=== PATIENT | female | born 2000 | race Caucasian/White ===

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

== ENCOUNTER → 2019-06-18 16:51 | Outpatient (CLI) | payer OTHER, SELFPAY ==
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
== END ==
PROVIDERS: PCP Pediatrics; Referring Provider Chiropractor; Visit Provider Chiropractor
DX: S13.4XXA Sprain of ligaments of cervical spine, initial encounter (principal)
CPT/HCPCS: 72050

== ENCOUNTER 2020-01-07 12:34 | Observation (INO) | payer OTHER, SELFPAY ==
[2019-09-19 15:10] VITALS: BMI 24.8
[2020-01-06 15:57] LABS: Anion Gap 6 (5-15); BUN 13 mg/dL (7-18); BUN/Creat Ratio 18.3 RATIO (10-20); Calcium,Total 8.8 mg/dL (8.5-10.1); Chloride 102 mmol/L (98-107); Creatinine, Serum 0.71 mg/dL (0.55-1.02); EST Glomerular Filtration Rate 111 mL/min (>60); Est Glom Filt Rate - Afr Amer 135 mL/min (>60); Glucose 79 mg/dL (74-106); Magnesium 1.8 mg/dL (1.6-2.6); Potassium 3.6 mmol/L (3.5-5.1); Sodium Level 138 mmol/L (136-145)
[2020-01-07] VITALS (11 sets, daily range): BP systolic 110–122; BP diastolic 61–73; PULSE 72–105; RESP 14–20; TEMP 36.4–37.4; O2SAT 96–100; BMI 24.0
--- NOTE | 2020-01-07 00:20 | PCM.HP.BLA ---
History and Physical Date of Admission: 01/07/20 HISTORY OF PRESENT ILLNESS 19 year old woman presents with complaints of bilateral macromastia as well as associated painful symptomatology of neck pain, thoracic back pain, bilateral shoulder pain from shoulder grooving from the weight of her breasts on her bra straps, and inframammary intertrigo for which she uses powders for relief. She denies any trauma to her breasts. Denies any nipple discharge. She has been seeing a Chiropractor for her neck and thoracic back pain for the last several years without much relief in her painful symptomatology. We have received medical approval for the breast reduction surgery. It is scheduled for 01/07/20. PAST MEDICAL HISTORY Intertrigo Shoulder pain Chronic thoracic back pain Chronic neck pain Macromastia Asthma Frequent headaches PAST SURGICAL HISTORY None ALLERGIES latex cefadroxil [From Duricef] MEDICATIONS Loratadine [Claritin] Montelukast [Singulair] doxycycline hyclate norgestimate-ethinyl estradiol spironolactone Fluoxetine [Prozac] FAMILY HISTORY Mother - Hypertension Father - Hypertension, High cholesterol Grandmother - Arthritis, Bowel disease, Breast cancer, Diabetes, Heart disease, Hypertension, CVA (cerebral vascular accident), Thyroid disorder Grandfather - Heart disease, Hypertension Grandfather - Heart disease, Hypertension, COPD (chronic obstructive pulmonary disease) SOCIAL HISTORY Smoking Status: Never smoker alcohol intake: never substance use type: does not use REVIEW OF SYSTEMS General - Denies fever, fatigue, and weight loss. Eyes - Denies cataracts. Has glaucoma. ENT - Denies nasal congestion and sore throat. Endocrine - Denies excessive thirst and urination. Family history of breast cancer. Skin - Denies suspicious lesions and skin cancer. Has inframammary intertrigo for which she uses powders for relief. Musculoskeletal - Denies joint pain, weakness of muscles and joints, and arthritis. Has joint stiffness and neck pain and back pain. Her neck and back pain involve cervical and thoracic area. Has bilateral shoulder pain from shoulder grooving from the weight of her breasts on her bra straps. Neuro - Has headaches. Cardiovascular - Denies chest pain, fatigue, and shortness of breath with exertion. Psych - Denies anxiety. Has depression. Respiratory - Denies shortness of breath and chronic cough. Has asthma. Gastrointestinal - Denies nausea, vomiting, diarrhea. Has constipation. Hematologic - Denies abnormal bruising and bleeding. Genitourinary - Denies hematuria and urinary frequency. PHYSICAL EXAMINATION General - Alert and oriented. Patient's bra size is 36 DD. HEENT - PERRL. EOMI. Throat is clear. Neck - Supple. No bony tenderness. There is some pericervical soft tissue tenderness. Lungs- Clear to auscultation. Heart - Regular rate and rhythm. Breasts - Patient has bilateral macromastia. No breast masses palpable. No axillary adenopathy noted. Distance from midclavicular line on the left to the nipple is 30 cm and from the nipple to the inframammary fold is 10 cm. Distance from midclavicular line on the right to the nipple is 31 cm and from nipple to the inframammary fold is 10 cm. Nipple areolar complex diameter is 8 cm bilaterally. No active inframammary intertrigo noted at this time. Abdomen - Soft and non distended. Back - No bony tenderness noted. There is perivertebral soft tissue tenderness in the upper thoracic area. Extremities - FROM. No axillary adenopathy. Radial pulses are palpable. There is some bilateral shoulder tenderness with shoulder grooving from the weight of her breasts on her bra straps. Neuro - CN II-XII grossly intact. Psych - Normal and mood and affect. ASSESSMENT 1. Bilateral macromastia. 2. Neck pain. 3. Thoracic back pain. 4. Bilateral shoulder pain from shoulder grooving from the weight of the breasts on her bra straps. 5. Inframammary intertrigo. 6. Family history of breast cancer. PLAN Discussed with the patient the procedure of breast reduction mammoplasty. I feel this procedure would be beneficial in this patient as it would help relieve her painful symptomatology. Patient states she has not had a mammogram. She will not one preop due to her age. Postoperatively, she would get a breast reduction baseline mammogram at some point. I would remove approximately 300 g of breast tissue per side. We will send the tissue to pathology for analysis to rule out carcinoma. Discussed with patient the extent of scarring for this procedure. The biggest risk for wound healing problems is the T-zone area. Usually wound care and sometimes antibiotics are necessary for healing in this area. She would have drains in for a few days depending on the amount of tissue that is removed. She will be on antibiotics until the drains are removed. In general, the final breast size ranges from a high B to a low C cup. Patient voices understanding and would like to be in the C cup range. Surgery will be done under general anesthesia with a surgical observation overnight stay in the hospital. We have received medical approval for the breast reduction surgery. It is scheduled for 01/07/20. Patient was informed of the risks and complications of the procedure including alternatives to surgery. These were discussed with her personally. She voices understanding and wishes to proceed. Some of the risks and complications were included in a form from the [employer]. She had last minute questions that were answered personally and to her satisfaction. Her consents were signed. Discussed with the patient that sometimes it is difficult to breast feed after a breast reduction surgery. She states if she has children in the future and if she has trouble with breast feeding, then she will bottle feed her baby. Also because of her age, she may still be developing her breasts. After her breast reduction surgery, if she is still developing she may increase her breast size about half a cup size on average. She understands that possibility and wishes to proceed. We discussed the current risks associated with COVID-19. While it is understood that there is a community spread of COVID-19, the risk of leslee COVID-19 while at [facility] ([facility]) is very low; however, the risk cannot be completely mitigated because of the community spread of the disease. We discussed in detail the risk of exposure to and/or potential harm posed by the COVID-19 virus with having a surgery/procedure at this time versus the risk of delaying the surgery/procedure. It is not possible to know either the risk of delaying the surgery or procedure or chance of getting an infection with perfect accuracy, but a joint decision was made to proceed at this time with the scheduled surgery/procedure as indicated on the consent form. Patient was notified that we will need to comply with any screening or testing [facility] wishes to perform or that surgery may be delayed for any positive results. Discussed with the patient that I was tested for COVID-19 on 08/29/19 which was negative and on 09/12/19 which was negative and on 09/26/19 which was negative and on 10/10/19 which was negative and on 10/24/19 which was negative and on 11/14/19 which was negative and on 12/05/19 which was negative. My testing regimen at this time is to be COVID-19 tested every 2 weeks or so. Procedure Criteria Procedure Type: Elective COVID Risk Discussion: The surgeon/proceduralist and patient have discussed in detail the risk of exposure to and/or potential harm posed by the COVID-19 virus with having a surgery/procedure at this time versus the risk of delaying the surgery/procedure. It is not possible to know either the risk of delaying the surgery or procedure or chance of getting an infection with perfect accuracy, but a joint decision was made between the patient and the surgeon/proceduralist to proceed at this time with the scheduled surgery/procedure as indicated on the consent form.
[2020-01-07 05:49] LABS: Internal QC Validated? YES +Cl - CLEAR BKGD; Pregnancy, Urine Negative Negative
--- NOTE | 2020-01-07 06:00 | HP_ITS ---
Date of Surgery: January 07, 2020 HISTORY OF PRESENT ILLNESS 19 year old woman presents with complaints of bilateral macromastia as well as associated painful symptomatology of neck pain, thoracic back pain, bilateral shoulder pain from shoulder grooving from the weight of her breasts on her bra straps, and inframammary intertrigo for which she uses powders for relief. She denies any trauma to her breasts. Denies any nipple discharge. She has been seeing a Chiropractor for her neck and thoracic back pain for the last several years without much relief in her painful symptomatology. We have received medical approval for the breast reduction surgery. PAST MEDICAL HISTORY Intertrigo (Chronic) Shoulder pain (Chronic) Chronic thoracic back pain (Chronic) Chronic neck pain (Chronic) Macromastia (Chronic) Allergies (Acute) Asthma (Acute) Back problem (Acute) Frequent headaches (Acute) PAST SURGICAL HISTORY None ALLERGIES latex cefadroxil [From Duricef] MEDICATIONS Loratadine [Claritin] Montelukast [Singulair] doxycycline hyclate norgestimate-ethinyl estradiol spironolactone Fluoxetine [Prozac] FAMILY HISTORY Mother - Hypertension Father - Hypertension, High cholesterol Grandmother - Arthritis, Bowel disease, Breast cancer, Diabetes, Heart disease, Hypertension, CVA (cerebral vascular accident), Thyroid disorder Grandfather - Heart disease, Hypertension Grandfather - Heart disease, Hypertension, COPD (chronic obstructive pulmonary disease) SOCIAL HISTORY Smoking Status: Never smoker alcohol intake: never substance use type: does not use REVIEW OF SYSTEMS General - Denies fever, fatigue, and weight loss. Eyes - Denies cataracts. Has glaucoma. ENT - Denies nasal congestion and sore throat. Endocrine - Denies excessive thirst and urination. Family history of breast cancer. Skin - Denies suspicious lesions and skin cancer. Has inframammary intertrigo for which she uses powders for relief. Musculoskeletal - Denies joint pain, weakness of muscles and joints, and arthritis. Has joint stiffness and neck pain and back pain. Her neck and back pain involve cervical and thoracic area. Has bilateral shoulder pain from shoulder grooving from the weight of her breasts on her bra straps. Neuro - Has headaches. Cardiovascular - Denies chest pain, fatigue, and shortness of breath with exertion. Psych - Denies anxiety. Has depression. Respiratory - Denies shortness of breath and chronic cough. Has asthma. Gastrointestinal - Denies nausea, vomiting, diarrhea. Has constipation. Hematologic - Denies abnormal bruising and bleeding. Genitourinary - Denies hematuria and urinary frequency. PHYSICAL EXAMINATION General - Alert and oriented. Patient's bra size is 36 DD. HEENT - PERRL. EOMI. Throat is clear. Neck - Supple. No bony tenderness. There is some pericervical soft tissue tenderness. Lungs- Clear to auscultation. Heart - Regular rate and rhythm. Breasts - Patient has bilateral macromastia. No breast masses palpable. No axillary adenopathy noted. Distance from midclavicular line on the left to the nipple is 30 cm and from the nipple to the inframammary fold is 10 cm. Distance from midclavicular line on the right to the nipple is 31 cm and from nipple to the inframammary fold is 10 cm. Nipple areolar complex diameter is 8 cm bilaterally. No active inframammary intertrigo noted at this time. Abdomen - Soft and non distended. Back - No bony tenderness noted. There is perivertebral soft tissue tenderness in the upper thoracic area. Extremities - FROM. No axillary adenopathy. Radial pulses are palpable. There is some bilateral shoulder tenderness with shoulder grooving from the weight of her breasts on her bra straps. Neuro - CN II-XII grossly intact. Psych - Normal and mood and affect. ASSESSMENT 1. Bilateral macromastia. 2. Neck pain. 3. Thoracic back pain. 4. Bilateral shoulder pain from shoulder grooving from the weight of the breasts on her bra straps. 5. Inframammary intertrigo. 6. Family history of breast cancer. PLAN Discussed with the patient the procedure of breast reduction mammoplasty. I feel this procedure would be beneficial in this patient as it would help relieve her painful symptomatology. Patient states she has not had a mammogram. She will not one preop due to her age. Postoperatively, she would get a breast reduction baseline mammogram at some point. I would remove approximately 300 g of breast tissue per side. We will send the tissue to pathology for analysis to rule out carcinoma. Discussed with patient the extent of scarring for this procedure. The biggest risk for wound healing problems is the T-zone area. Usually wound care and sometimes antibiotics are necessary for healing in this area. She would have drains in for a few days depending on the amount of tissue that is removed. She will be on antibiotics until the drains are removed. In general, the final breast size ranges from a high B to a low C cup. Patient voices understanding and would like to be in the C cup range. Surgery will be done under general anesthesia with a surgical observation overnight stay in the hospital. We have received medical approval for the breast reduction surgery. It is scheduled for next week on 01/07/20. Patient was informed of the risks and complications of the procedure including alternatives to surgery. These were discussed with her personally. She voices understanding and wishes to proceed. Some of the risks and complications were included in a form from the [employer]. She had last minute questions that were answered personally and to her satisfaction. Her consents were signed. Discussed with the patient that sometimes it is difficult to breast feed after a breast reduction surgery. She states if she has children in the future and if she has trouble with breast feeding, then she will bottle feed her baby. Also because of her age, she may still be developing her breasts. After her breast reduction surgery, if she is still developing she may increase her breast size about half a cup size on average. She understands that possibility and wishes to proceed. We discussed the current risks associated with COVID-19. While it is understood that there is a community spread of COVID-19, the risk of leslee COVID-19 while at [facility] ([facility]) is very low; however, the risk cannot be completely mitigated because of the community spread of the disease. We discussed in detail the risk of exposure to and/or potential harm posed by the COVID-19 virus with having a surgery/procedure at this time versus the risk of delaying the surgery/procedure. It is not possible to know either the risk of delaying the surgery or procedure or chance of getting an infection with perfect accuracy, but a joint decision was made to proceed at this time with the scheduled surgery/procedure as indicated on the consent form. Patient was notified that we will need to comply with any screening or testing [facility] wishes to perform or that surgery may be delayed for any positive results. Discussed with the patient that I was tested for COVID-19 on 08/29/19 which was negative and on 09/12/19 which was negative and on 09/26/19 which was negative and on 10/10/19 which was negative and on 10/24/19 which was negative and on 11/14/19 which was negative and on 12/05/19 which was negative. My testing regimen at this time is to be COVID-19 tested every 2 weeks or so. Procedure Criteria Procedure Type: Elective COVID Risk Discussion: The surgeon/proceduralist and patient have discussed in detail the risk of exposure to and/or potential harm posed by the COVID-19 virus with having a surgery/procedure at this time versus the risk of delaying the surgery/procedure. It is not possible to know either the risk of delaying the surgery or procedure or chance of getting an infection with perfect accuracy, but a joint decision was made between the patient and the surgeon/proceduralist to proceed at this time with the scheduled surgery/procedure as indicated on the consent form. CC: Shantelle Mann
[2020-01-07] MEDS: Lactated Ringers 1,000 ML 40 ML IV (06:30)
[2020-01-07] MEDS: Gabapentin 600 MG Tablet PO (06:34)
[2020-01-07] MEDS: Scopolamine 1mg/72hr Patch 1 PATCH TRANSDERM. (06:35)
[2020-01-07] MEDS: Acetaminophen 500 MG Tablet 1000 MG PO ×2 (06:35→18:28)
[2020-01-07] MEDS: Scopolamine 1mg/72hr Patch 1 PATCH TD (07:00)
[2020-01-07 07:15] LABS: Bedside Glucose 105 mg/dL (70-110)
--- NOTE | 2020-01-07 07:30 | BR_PTH ---
PATIENT: THEA MERLOS LOC: MS3 U#:[id number] AGE/SX: 19/F ROOM: MS317 RE01/07/[address]: Dr. Cole Jackson MD : 2000 BED: 1 DIS: 01/08/2020 SPEC #: [id number] RECD: 01/07/20 07:30 STATUS: DM REDelta #: [id number] DEBBIE: 01/07/20 07:[address]: Cole Jackson DEPT: SURGICAL PATHOLOGY RECD BY: Lisa Lainez ENTERED: 01/08/20 09:02 SP TYPE: MAMOPLASTY OTHR DR: Dr. Shantelle Mann MD Tissues: A - Right breast, NOS B - Left breast, NOS Procedures: Surgery Specimen Level IV HEADER OPERATION: Breast reduction mammoplasty PRE-OP DIAGNOSIS: Bilateral macromastia; neck and thoracic back pain TISSUE SUBMITTED: A - Right breast tissue, B - Left breast tissue MICROSCOPIC DIAGNOSIS A. Right breast tissue, breast reduction mammoplasty: Fragments of benign breast tissue (553 gm) with focal fibrocystic changes and dense fibrosis. 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 B. Left breast tissue, breast reduction mammoplasty: Fragments of benign breast tissue (465 gm) with focal dense fibrosis. RENE:eli 01/09/20 MICROSCOPIC DESCRIPTION Slides are reviewed. GROSS DESCRIPTION A - Received in fixative is one container labeled with the patient's name and designated right breast tissue. The specimen consists of multiple pieces of fibroadipose tissue with a few of the pieces showing degroot-brown skin weighing in aggregate 553 gm and measuring in aggregate 22 x 20 x 5 cm. The skin surface is unremarkable. Sections reveal yellow adipose cut surfaces mixed with degroot-white fibrous areas. No mass lesion is identified. Top Waddy sections are submitted in six cassettes. Cassette 6 also contains the skin. B - Received in fixative is one container labeled with the patient's name and designated left breast tissue. The specimen consists of multiple pieces of fibroadipose tissue with a few of the pieces showing degroot-brown skin weighing in aggregate 465 gm and measuring in aggregate 19 x 16 x 5 cm. The skin surface is unremarkable. Sections reveal yellow adipose cut surfaces mixed with degroot-white fibrous areas. No mass lesion is identified. Top Waddy sections are submitted in six cassettes. Cassette 6 also contains the skin. / RENE:eli 01/08/20 TC:5 CPT: 38939 x2
--- NOTE | 2020-01-07 12:24 | OP.PCM_ITS ---
Report of Operation Date of Procedure: 01/07/20 Pre-Operative Diagnosis: 1. Bilateral macromastia. 2. Neck pain. 3. T horacic back pain. 4. Bilateral shoulder pain from shoulder grooving from the weight of the breasts on her bra straps. 5. Inframammary intertrigo. 6. Family history of breast cancer. Post-Operative Diagnosis: Same. Surgery/Procedure Performed:: Bilateral breast reduction mammaplasty. Description of Surgical Findings:: 19 year old woman presents with complaints of bilateral macromastia as well as associated painful symptomatology of neck pain, thoracic back pain, bilateral shoulder pain from shoulder grooving from the weight of her breasts on her bra straps, and inframammary intertrigo for which she uses powders for relief. She denies any trauma to her breasts. Denies any nipple discharge. She has been seeing a Chiropractor for her neck and thoracic back pain for the last several years without much relief in her painful symptomatology. We have received medical approval for the breast reduction surgery. Patient was informed of the risks and complications of the procedure including alternatives to surgery. These were discussed with the patient personally. Patient voices understanding and wishes to proceed. Some of the risks and complications were included in a form from the [employer]. IV Fluids - 2200 ml. Urine Output - 500 ml. Tissue removed from the left breast - 446 grams. Tissue removed from the right breast - 532 grams. I used John absorbable hemostat, (I used 2 vials, one in each breast). Reference Number - [id number]. Lot Number - [id number]. Expiration - July 24, 2024 (Left breast). Reference Number - [id number]. Lot Number - [id number]. Expiration - August 24, 2024 (Right breast). chief executive officer: Adrian Reyna. Type of Anesthesia:: General Specimen's removed: 1. Left breast tissue to Pathology. 2. Right breast ti ssue to Pathology.. Drains: Godwin x2 (one in each breast). Estimated Blood Loss (mL): 250 ml. Fluids Replaced: 2700 ml (IV Fluids 2200 ml, Urine Output 500 ml). Description of Procedure: In the preop area, the patient was placed in the sitting position and preoperative markings were made. The sternum midline was marked down to the umbilicus. The inframammary folds were marked bilaterally. The midclavicular line was then marked down to the nipple, then from the nipple to the inframammary fold. The inframammary fold was then superimposed on the midclavicular line and I made a point 1 cm below that to be the new position of the nipple-areolar complex. 7 cm lines were then drawn divergent from that point to encompass the nipple-areolar complex. The distance between the divergent lines was 10 cm. The patient was then placed in the supine position and taken to the operating room and placed under general anesthesia and her breasts were prepped and draped in usual fashion. Ioban draping was also used. SCDs were placed for DVT prophylaxis. Perioperative antibiotics were given intravenously. A Adhikari catheter was also placed. For the surgery I wore an N95 mask and wore proper eyewear protection. I then sherwin straight lines down from the lines drawn divergent around the nipple-areolar complex down to the inframammary fold. The width of the pedicle is 9 cm. I then used a 42 mm circular template for a new size of the nipple-areolar complex. The central markings were infiltrated with Xylocaine and epinephrine. The central skin was then deepithelialized. I started on the left side first and then went to the right side. I then mobilized medial and lateral breast flaps at the level of Casa's fascia down to about 1-2 cm from the chest wall. This was met in the midline of the breast with dissection at the level of Casa's fascia down to about 1-2 cm from the chest wall. Once the central breast mound pedicle was from the skin envelope, the reduction was then begun. Most of the tissue was removed from the superior aspect of the breast and the lateral aspect of the breast. I then sutured the leading edge of the medial and lateral breast flaps to the midline of the inframammary fold with 2-0 Vicryl suture. The vertical incision was approximated using surgical clips. The excess tissue from the medial and lateral breast flaps were excised and the horizontal incision was approximated using surgical clips. The patient was then placed in a sitting position. Using a vertical limb length of 4.5 cm, I sherwin the new position of the new nipple-areolar complexes on both breasts. They were in good position on the central aspect of the breast mound. Good symmetry was noted between the left breast and the right breast. Good shape and contour and projection was noted and appeared clinically to be a C cup. The patient was then placed back in the supine position and the surgical clips were removed. The breast wounds were then irrigated with Irrisept 0.05% Chlorhexidine solution which was followed by saline irrigation. Hemostasis was obtained using electrocautery. The tissue removed from the left breast was 446 grams. The tissue removed from the right breast was 532 grams. The tissue that was removed from the breasts was sent to Pathology for analysis to rule out carcinoma. After hemostasis was obtained using electrocautery, I then sprayed John absorbable hemostat into both breast wounds. I used one vial for each side. I then placed a size 15 Godwin drain into each breast wound to be brought through the lateral aspect of the horizontal incision. I then closed the breast wounds by first approximating the leading edge of the medial and lateral breast flaps to the midline of the inframammary fold with 2-0 Vicryl suture. The deep dermis and subcutaneous tissue of the vertical incision and the horizontal incisions were approximated using 3-0 Monocryl interrupted sutures. The horizontal incision was then approximated using 4-0 V-Loc unidirectional barbed running subcuticular suture. I also placed a few 4-0 Prolene vertical mattress interrupted sutures at the level of the Tzone. The vertical incision was then closed on the skin with 4-0 Prolene interrupted sutures. With a vertical limb length of 4.5 cm, I sherwin a circular incision where the nipple-areolar complex would be brought through this keyhole incision. Incisions were made and the nipple areolar complex was brought through the keyhole incision. The nipple-areolar complex was secured to the breast skin using 3-0 Monocryl interrupted sutures for deep dermis and subcutaneous tissue. The skin was approximated using 4-0 Prolene simple interrupted sutures. This was then covered with Histoacryl skin tissue adhesive. I sutured the drains to the skin using 3-0 nylon suture. At the end of the procedure, the breasts were soft with no evidence of vascular compromise. No evidence of hematomas were noted. The nipples were viable. I then dressed the breasts with a Kerlix gauze and a compression david wrap. Then patient tolerated the procedure well and will be sent to the recovery room in satisfactory condition. She will be admitted for surgical observation overnight stay. She will go home tomorrow once she is tolerating oral pain medication. I will remove the drains in a few days. She will keep her head elevated during the initial postoperative period. She will be maintained on a lifting restriction and keep her head elevated during the initial postoperative period. Post-discharge, she may get a compression sports bra as well. She will have the Adhikari removed in the morning. She will be sent home on antibiotics and pain med icine. Sutures will be removed in 1-2 weeks. Grafts/Implants Used: John. - Complications None. - Admit VTE Documentation VTE Present on Admission: No VTE Mechan Device Prophylaxis: SCD's VTE Pharm Prophylaxis ordered?: Yes Surgery Charges CPT - 58138 ICD-10 - N62, M54.2, M54.6, M25.519, L30.4, Z80.3 [id number] N62, M54.2, M54.6, M25.519, L30.4, Z80.3
[2020-01-07] MEDS: Lactated Ringers 1,000 ML 60 ML IV ×2 (12:30→14:39)
[2020-01-07] MEDS: Ondansetron ODT 4 MG Tablet PO (14:34)
[2020-01-07] MEDS: Ondansetron 4 MG/2 ML Vial IV (16:21)
[2020-01-07] MEDS: 0.9% Saline Lock 10 ML Syringe IV (16:21)
[2020-01-07] MEDS: proMETHazine 25 MG/ML Syringe 12.5 MG IV (16:58)
[2020-01-07] MEDS: Docusate Sodium 100 MG Capsule PO (22:53)
[2020-01-07] MEDS: FLUoxetine 20 MG Capsule PO (22:53)
[2020-01-08] MEDS: Acetaminophen 500 MG Tablet 1000 MG PO ×3 (00:12→12:50)
[2020-01-08 00:20] VITALS: BP 104/67; PULSE 83; RESP 16; TEMP 36.4; O2SAT 100
[2020-01-08 04:02] VITALS: BP 103/68; PULSE 77; RESP 16; TEMP 36.6; O2SAT 97
[2020-01-08 04:43] VITALS: BP 107/68; PULSE 63; RESP 16; TEMP 36.7; O2SAT 100
[2020-01-08 05:34] LABS: Hematocrit 32.2 % (37-47); Hemoglobin 10.4 g/dL (12.0-15.0); Mean Corp Hgb Conc 32.3 g/dL (32-36); Mean Corpuscular Hgb 29.8 pg (27.0-32.0); Mean Corpuscular Volume 92.3 fL (81-99); Mean Platelet Vol. 11.9 fl (6.2-12.0); Platelet Count 201 K/mm3 (150-450); RBC Distribution Width CV 12.5 % (11.6-14.6); Red Blood Count 3.49 M/mm3 (4.2-5.4); White Blood Count 7.2 K/mm3 (4.4-11.0)
[2020-01-08 06:02] LABS: Anion Gap 5 (5-15); BUN 5 mg/dL (7-18); BUN/Creat Ratio 7.8 RATIO (10-20); Calcium,Total 8.1 mg/dL (8.5-10.1); Chloride 105 mmol/L (98-107); Creatinine, Serum 0.64 mg/dL (0.55-1.02); EST Glomerular Filtration Rate 125 mL/min (>60); Est Glom Filt Rate - Afr Amer 151 mL/min (>60); Estimated Creatinine Clearance 136.35 ml/min; Glucose 111 mg/dL (74-106); Potassium 3.9 mmol/L (3.5-5.1); Prealbumin 24.2 mg/dL (20.0-40.0); Sodium Level 140 mmol/L (136-145)
[2020-01-08 08:36] VITALS: BP 106/73; PULSE 64; RESP 16; TEMP 36.9; O2SAT 100
[2020-01-08] MEDS: Ensure Surgery 237 ML LIQUID PO (09:54)
[2020-01-08] MEDS: oxyCODONE 5 MG Tablet PO ×2 (09:54→14:47)
[2020-01-08] MEDS: Montelukast 10 MG Tablet 5 MG PO (09:55)
[2020-01-08] MEDS: Ondansetron ODT 4 MG Tablet PO (09:55)
[2020-01-08] MEDS: Gabapentin 100 MG Capsule 200 MG PO ×2 (09:55→12:51)
[2020-01-08] MEDS: Loratadine 10 MG Tablet PO (09:55)
[2020-01-08] MEDS: Enoxaparin 40 MG/0.4 ML Syringe SC (09:55)
[2020-01-08] MEDS: Docusate Sodium 100 MG Capsule PO (09:56)
[2020-01-08 10:40] VITALS: O2SAT 100
--- NOTE | 2020-01-08 13:04 | PCM.PN.SRG ---
Subjective: Postop #1 Patient is resting comfortably. Had some emesis last night. - Physical Exam Vitals/I&O's: Vital Signs Temp Pulse Resp BP Pulse Ox 98.4 F 64 16 106/73 100 01/08/20 08:36 01/08/20 08:36 01/08/20 08:36 01/08/20 08:36 01/08/20 10:40 Oxygen Flow Rate (L/min) 6 Oxygen Delivery Method Room Air Weight: 153 lb 14.122 oz Body Mass Index (BMI) 24.0 Intake and Output for Last 24 Hours 01/06/20 01/07/20 01/08/20 23:59 23:59 23:59 Intake Total 3118 / 3118 3054 / 3054 Output Total 2045 / 2045 1765 / 1765 Balance 1073 / 1073 1289 / 1289 Drainage 170 ml yesterday, 15 ml today. General: Alert, Oriented x3 HEENT: PERRLA, EOMI Oral: Moist Mucosa Neck: Supple Abdomen: Soft, Non-Distended Skin: Incision - bilateral breast incisions are dry and intact. Breasts are soft and symmetrical. No clinical evidence of hematoma. Nipples are viable. Neurological: Cranial nerves II-XII grossly intact Psych/Mental Status: Normal Affect, Appropriate Microbiology Past 72 Hours 01/06/20 14:15 Interface Orders SARS-CoV-2 Antigen (Rapid) - Final Laboratory Results 01/08/20 05:00: WBC 7.2, RBC 3.49 L, Hgb 10.4 L, Hct 32.2 L, MCV 92.3, MCH 29.8, MCHC 32.3, RDW Std Deviation 42.0, RDW Coeff of Karan 12.5, Plt Count 201, MPV 11.9 01/08/20 05:00: Sodium 140, Potassium 3.9, Chloride 105, Carbon Dioxide 30.0, Anion Gap 5, BUN 5 L, Creatinine 0.64, Estim Creat Clear Calc 136.35, Est GFR (MDRD) Af Amer 151, Est GFR (MDRD) Non-Af 125, BUN/Creatinine Ratio 7.8 L, Glucose 111 H, Calcium 8.1 L, Prealbumin 24.2 Current Medications Acetaminophen (Acetaminophen 500 Mg Tablet) 1,000 mg PO Q6 BRENNAN Last Admin: 01/08/20 12:50 Dose: 1,000 mg Documented by: Docusate Sodium (Docusate Sodium 100 Mg Capsule) 100 mg PO BID [facility] Last Admin: 01/08/20 09:56 Dose: 100 mg Documented by: Enoxaparin Sodium (Enoxaparin 40 Mg/0.4 Ml Syringe) 40 mg SC DAILY [facility] Last Admin: 01/08/20 09:55 Dose: 40 mg Documented by: Enteral Nutritional Formula (Ensure Surgery 237 Ml Liquid) 237 ml PO TIDCM [facility] Last Admin: 01/08/20 12:50 Dose: Not Given Documented by: Fluoxetine HCl (Fluoxetine 20 Mg Capsule) 20 mg PO QHS [facility] Last Admin: 01/07/20 22:53 Dose: 20 mg Documented by: Gabapentin (Gabapentin 100 Mg Capsule) 200 mg PO TIDCM [facility] Last Admin: 01/08/20 12:51 Dose: 200 mg Documented by: Hydromorphone HCl (Hydromorphone 1 Mg/Ml Syringe) 0.5 - 1 mg IV Q3H PRN PRN PRN Reason: Pain Score 6-10 Clindamycin Phosphate 600 mg/ (Dextrose) 54 mls @ 100 mls/hr IV Q8H [facility] Last Infusion: 01/08/20 07:13 Dose: Infused Documented by: Insulin Human Lispro (Insulin Lispro 100 Unit/Ml Insuln.Pen) 1 - 6 unit SC Q4H PRN PRN; Protocol PRN Reason: BG>/= 180, SEE PROTOCOL Loratadine (Loratadine 10 Mg Tablet) 10 mg PO DAILY [facility] Last Admin: 01/08/20 09:55 Dose: 10 mg Documented by: Magnesium Chloride (Magnesium Chloride 64 Mg Delay Rel.Tablet) 128 mg PO DAILY PRN PRN PRN Reason: Constipation Montelukast Sodium (Montelukast 10 Mg Tablet) 5 mg PO DAILY [facility] Last Admin: 01/08/20 09:55 Dose: 5 mg Documented by: Non-Formulary Medication (Doxycycline Hyclate) 20 mg PO BID [facility] Norgestimate (Norgestimate-Ethinyl Estradiol 1 Dose.Pack) 1 tablet PO DAILY [facility] Ondansetron HCl (Ondansetron Odt 4 Mg Tablet) 4 mg PO Q6H PRN PRN PRN Reason: NAUSEA Last Admin: 01/08/20 09:55 Dose: 4 mg Documented by: Ondansetron HCl (Ondansetron 4 Mg/2 Ml Vial) 4 mg IV Q6H PRN PRN PRN Reason: NAUSEA Last Admin: 01/07/20 16:21 Dose: 4 mg Documented by: Oxycodone HCl (Oxycodone 5 Mg Tablet) 5 - 10 mg PO Q4H PRN PRN PRN Reason: Pain Score 4-10 Last Admin: 01/08/20 09:54 Dose: 5 mg Documented by: Promethazine HCl (Promethazine 25 Mg/Ml Syringe) 12.5 mg IV Q4H PRN PRN PRN Reason: NAUSEA/VOMITING Last Admin: 01/07/20 16:58 Dose: 12.5 mg Documented by: Sodium Chloride (0.9% Saline Lock 10 Ml Syringe) 10 - 40 ml IV UD PRN PRN Reason: SALINE FLUSH Last Admin: 01/07/20 16:21 Dose: 10 ml Documented by: Spironolactone (Spironolactone 50 Mg Tablet) 100 mg PO 1800 [facility] Last Admin: 01/07/20 17:07 Dose: Not Given Documented by: Medical Necessity - Tobacco Use Smoking Status: Never smoker Assessment/Plan 1. Bilateral macromastia. 2. Neck pain. 3. Thoracic back pain. 4. Bilateral shoulder pain from shoulder grooving from the weight of the breasts on her bra straps. 5. Inframammary intertrigo. 6. Family history of breast cancer. 7. s/p bilateral breast reduction mammaplasty. Patient had some emesis last night. Resting comfortably today. She is tolerating po analgesia. Breasts are soft and symmetrical. Incisions are dry and intact. No clinical evidence of hematoma. Nipples are viable. Prealbumin was 24.2. Encourage nutritional supplementation with protein to help the healing process. Discharge home today. Wrote scripts for Clindamycin for 5 days. Wrote script for Percocet for pain (40 tabs). Wrote scripts for Phenergan for nausea (30 tabs) and a refill and for Colace for constipation (60 tabs). Keep head elevated. Maintain david wrap compression. Maintain lifting restriction. Followup Monday01/10/20 to remove the breast drains.
--- NOTE | 2020-01-08 13:27 | DCINST_ITS ---
You will use the following diet at home:: No restrictions, Other - encourage nutritional supplementation with protein to help the healing process. Discharge Activity: May not drive while taking narcotic pain medications., May Not Shower - until the drains are removed., - - keep head elevated. no heavy lifting. continue david wrap compression. May shower in (days): 3 - after the drains are removed in the office. May resume sexual activity in: 10-14 days Weight Bearing Status: Weight bearing as tolerated Lifting Restrictions: 20 lbs. Keep extremity elevated above heart level: - - elevate head. Call your doctor if your incision/area has: Continuous Slow Oozing, Sudden Increased Bleeding, Increased Pain/ Swelling, Increased Redness, Foul Smelling Discharge, Swelling at the incision site Call your doctor if you observe: Fever of 101 or Higher, Coldness, Increased Pain, Shortness of breath, Chest pain, Calf discomfort, Uncontrolled pain Suture Line Care: - - dry dressings daily. Change Dressing in (Days):: 1 - dry dressings daily. Cleanse incision/area with: - - may get incisions wet in the shower after the drains are removed. Drain: Suction - anabel drain x2 to bulb suction. empty and record output daily. Allergies/Adverse Reactions: Allergies latex Allergy (Intermediate, Verified 01/07/20 06:04) SKIN RASH AND ITCHING cefadroxil [From Duricef] Allergy (Verified 01/07/20 06:04) Hives Medications to take at Discharge Loratadine [Claritin] 10 mg PO DAILY 12/19/14 Montelukast [Singulair] 5 mg PO DAILY 12/19/14 doxycycline hyclate 20 mg capsule 20 mg PO BID 09/09/19 norgestimate 0.25 mg-ethinyl estradiol 35 mcg tablet 1 tab PO DAILY 09/09/19 spironolactone 50 mg tablet 100 mg PO 1800 09/09/19 Fluoxetine [Prozac] 20 mg PO QHS 12/27/19 Clindamycin HCl [Cleocin HCl] 300 mg PO TID #15 cap 01/08/20 Docusate Sodium [Colace] 100 mg PO BID #60 cap 01/08/20 Oxycodone HCl/Acetaminophen [Percocet 5/325] 1 tablet PO Q4H PRN PRN 7 Days #40 tablet 01/08/20 proMETHazine tablet [Phenergan tablet] 25 mg PO 4X/DAY PRN PRN #30 tab 01/08/20 The following prescriptions were given: Clindamycin HCl [Cleocin HCl] 300 mg PO TID #15 cap Transmission Status: Pending to [id number] Docusate Sodium [Colace] 100 mg PO BID #60 cap Transmission Status: Pending to [facility][id number] Oxycodone HCl/Acetaminophen [Percocet 5/325] 1 tablet PO Q4H PRN PRN 7 Days #40 tablet PRN Reason: Pain Score 6-10 Transmission Status: Received by [facility][id number] proMETHazine tablet [Phenergan tablet] 25 mg PO 4X/DAY PRN PRN #30 tab PRN Reason: Nausea Transmission Status: Pending to [id number] Primary Care Physician: Shantelle Mann MD [Primary Care Provider] - Test Results: Test results from this visit will be discussed in further detail at your follow- up appointment, if applicable. Please Follow Up With: Cole Jackson MD When: monday01/10/20. call [phone] for appt. Proposed Discharge Date: 01/08/20
[2020-01-08 15:08] VITALS: BP 100/63; PULSE 74; RESP 18; TEMP 36.4; O2SAT 100
== END 2020-01-08 15:50 | disposition home or self-care (01) ==
LOC: SDC 13:16 → MS3 01-08 07:15
PROVIDERS: Anesthesiology; Admitting Provider Surgery; PCP Pediatrics; Referring Provider Surgery; Visit Provider Surgery
PROC: 0H0U0ZZ Alteration of Left Breast, Open Approach (ICD-10-PCS; CPT 19318; principal; 2020-01-07 07:15)
DX: N62 Hypertrophy of breast (principal); Z20.828 Contact with and (suspected) exposure to other viral communicable diseases; M54.6 Pain in thoracic spine; M54.2 Cervicalgia; M25.511 Pain in right shoulder; M25.512 Pain in left shoulder; L30.4 Erythema intertrigo; Z80.3 Family history of malignant neoplasm of breast; J45.909 Unspecified asthma, uncomplicated; Z79.899 Other long term (current) drug therapy; F41.9 Anxiety disorder, unspecified
CPT/HCPCS: 00402; 19318; 36415; 80048; 81025; 82962; 83735; 84134; 85027; 87426; 88305; 96365; 96366; 96372; 96375; 99218; 99251; J7120; A4216; G0378; G0379; G0463; J2405; Q9968

== ENCOUNTER → 2020-01-27 20:28 | Outpatient (CLI) | payer OTHER, SELFPAY | PROVIDERS: PCP Pediatrics; Referring Provider Surgery; Visit Provider Surgery | DX: T81.89XA Other complications of procedures, not elsewhere classified, initial encounter (principal); N62 Hypertrophy of breast; Z98.890 Other specified postprocedural states | CPT/HCPCS: 87070; 87075; 87077; 87186; 87205 ==

== ENCOUNTER → 2020-08-26 11:39 | Outpatient (CLI) | payer OTHER, SELFPAY ==
--- NOTE | 2020-08-26 11:50 | RAD_ITS ---
STUDY: X-RAY - CERVICAL SPINE REASON FOR EXAM: Female, 19 years old. Radiculopathy, cervical region TECHNIQUE: 4 view(s) of the cervical spine were obtained. COMPARISON: None FINDINGS: Normal anterior atlantoaxial articulation. Normal odontoid process. Normal cervical lordosis. Normal vertebral bodies and endplates. Normal disc space heights. Normal visualized intervertebral neuroforamina. The soft tissue structures are unremarkable. RAD/Cerv Spine 2 or 3 Views IMPRESSION: Normal x-ray examination of the visualized cervical spine. Electronically Signed: Carson Jovel MD at 16:55 EDT , Service support ,
== END ==
PROVIDERS: PCP Internal Medicine; Referring Provider Chiropractor; Visit Provider Chiropractor
DX: M54.12 Radiculopathy, cervical region (principal)
CPT/HCPCS: 72040

== ENCOUNTER 2021-02-23 04:37 | Emergency (ER) | payer OTHER, SELFPAY ==
[2021-02-23 04:39] VITALS: BP 126/85; PULSE 82; RESP 16; TEMP 36.6; O2SAT 100; BMI 25.3
--- NOTE | 2021-02-23 05:04 | CT_ITS ---
EXAM: CT ABDOMEN AND PELVIS WITH INTRAVENOUS CONTRAST : 2000 CLINICAL INDICATION: pain TECHNIQUE: Helically acquired images were obtained of the abdomen and pelvis with intravenous contrast. This CT exam was performed using one or more of the following dose reduction techniques: automated exposure control, adjustment of the mA and/or kV according to patient size, and/or use of iterative reconstruction technique. This report was created using [employer] report generation technology. CONTRAST: IV 100mL Isovue-370 COMPARISON: None. FINDINGS: LOWER THORAX: Unremarkable. Lung bases are clear. No cardiomegaly. No significant pericardial effusion. ABDOMEN: LIVER: Unremarkable. Homogeneous. No focal mass. GALLBLADDER AND BILE DUCTS: Unremarkable. No calcified gallstones. No gallbladder distention or wall edema. No intra- or extrahepatic biliary ductal dilation. PANCREAS: Unremarkable. No focal cystic or solid mass. SPLEEN: Unremarkable. Normal size without focal cystic or solid mass. ADRENALS: Unremarkable. No nodules. KIDNEYS AND URETERS: Unremarkable. Normal renal size and position. No hydronephrosis. STOMACH AND BOWEL: Unremarkable. No stomach or bowel distention. No focal inflammatory change. PELVIS: APPENDIX: No evidence of acute appendicitis. BLADDER: Unremarkable. REPRODUCTIVE: There is a 3.8 cm left ovarian cyst. ABDOMEN and PELVIS: INTRAPERITONEAL SPACE: Unremarkable. No ascites or other fluid collection. No free air. BONES/JOINTS: Unremarkable. No suspicious lytic or blastic abnormality. SOFT TISSUES: Unremarkable. No discrete abdominal or pelvic wall hernia. VASCULATURE: Unremarkable. Abdominal aorta is non-dilated. LYMPH NODES: Unremarkable. No enlarged lymph nodes. CT/Abdomen/Pelvis W IV Cont ONLY IMPRESSION: There is a 3.8 cm left ovarian cyst. Individualized dose optimization techniques were used for this CT. at 0555 Reported and signed by: Amol Argueta MD Electronically Signed: Amol Argueta MD at 5:54 EST Tel , Service support ,
--- NOTE | 2021-02-23 05:05 | ED.VIS.GI ---
HPI HPI - GI History of Present Illness Chief Complaint: Complaint Narrative Narrative: Patient with past medical history of anxiety, takes spironolactone and doxycycline for her acne, presents with her mother because of right-sided back pain and left-sided abdominal pain that she has had for the last 4 days. She states that she went to urgent care and they did a UTI test which was negative. They did some other sort of test and told her that she had a yeast infection so gave her Monistat. She states that over the last 4 days, the pain has been getting worse. She had pain in her back that radiated downward that she describes as sharp and stabbing. She also had pain on the left side in the front. She vomited 3 times today without any blood in her emesis. She has had a little bit of diarrhea without any blood in her stool. No exacerbating or alleviating factors to her pain. When she started vomiting, her mother became concerned and brought her to the emergency department for evaluation. [facility] Medical History Allergies Asthma Back problem Chronic neck pain Chronic thoracic back pain Contact dermatitis Frequent headaches Hypertrophic scar of skin Intertrigo Macromastia Shoulder pain Home Medications loratadine 10 mg PO DAILY 12/19/14 [History Last Taken Unknown] montelukast 5 mg PO DAILY 12/19/14 [History Last Taken Unknown] doxycycline hyclate 20 mg capsule 20 mg PO BID 09/09/19 [History Last Taken Unknown] norgestimate 0.25 mg-ethinyl estradiol 35 mcg tablet 1 tab PO DAILY 09/09/19 [History Last Taken Unknown] spironolactone 50 mg tablet 100 mg PO 1800 09/09/19 [History Last Taken Unknown] fluoxetine 20 mg PO QHS 12/27/19 [History Last Taken Unknown] ondansetron 4 mg PO Q6H PRN #14 tab 02/23/21 [Rx Last Taken Unknown] Allergy/AdvReac Type Severity Reaction Status Date / Time latex Allergy Intermediate SKIN RASH Verified 02/23/21 04:41 AND ITCHING cefadroxil [From [facility]] Allergy Hives Verified 02/23/21 04:41 chloroprep Allergy Intermediate rash and Uncoded 01/15/21 15:09 itching Family History Mother Hypertension Father Hypertension High cholesterol Grandmother Arthritis Bowel disease Breast cancer Diabetes Heart disease Hypertension CVA (cerebral vascular accident) Thyroid disorder Grandfather Heart disease Hypertension Grandfather Heart disease Hypertension COPD (chronic obstructive pulmonary disease) Surgical History History of bilateral breast reduction surgery History of excision of lesion Social History Smoking Status: Never smoker alcohol intake: never substance use type: does not use additional social history: DOES TAKE ASPIRIN NEEDED DOES TAKE IBUPROFEN NEEDED ROS ROS ED ROS Narrative Constitutional: No fever, no chills. HEENT: No sore throat. No neck pain. No loss of vision. No rhinorrhea. Cardiovascular: No chest pain. No palpitations. No pedal edema. Respiratory: No cough, no shortness of breath. Abdominal: Positive abdominal pain. Positive nausea. 3 episodes of vomiting. Positive diarrhea Genitourinary: No dysuria. No hematuria. Musculoskeletal: No myalgias. No arthralgias. Neurologic: No headaches. No dizziness. No lightheadedness. Skin: No rash. No change in color. Psychiatric: No depression. No anxiety. EXAM Physical Exam Narrative Exam Narrative: Afebrile. Vital signs noted. HEENT: Normocephalic. Atraumatic. PERRL, EOMI. Neck soft and supple. No point tenderness or step off. Cardiovascular: Regular rate and rhythm. No murmurs, rubs, or gallops appreciated. Respiratory: No tachypnea. Lungs clear to auscultation bilaterally. Gastrointestinal: Abdomen soft, nontender, with normoactive bowel sounds. No rebound or guarding. Neurological: Awake. Alert. Nonfocal, nonlateralizing. Skin: No rash. Normal color. No pallor. Musculoskeletal: No pedal edema. Full range of motion extremities. Psychological: Flat affect Const Vital Signs: 02/23/21 04:39 Temperature 97.8 F Temperature Source Temporal Pulse Rate 82 Respiratory Rate 16 Blood Pressure 126/85 H Blood Pressure Mean 98 Pulse Ox 100 Oxygen Delivery Method Room Air MDM MDM MDM Narrative Medical decision making narrative: Comprehensive work-up was pursued. She was bolused normal saline. I will obtain a serum along with CBC, CMP, and lipase for her 3 episodes of vomiting. Regarding her right-sided back pain and left-sided abdominal pain and diarrhea I will obtain CT imaging with IV contrast and urinalysis. Her work-up is grossly unremarkable. She has normal white count of 8.0, hemoglobin stable at 13.5. CMP is grossly unremarkable with a normal BUN and creatinine. AST and ALT are normal. Lipase normal at 78. Serum is negative. Urinalysis shows no evidence of infection. CT of the abdomen pelvis shows a 3.8 cm left ovarian cyst, but otherwise unremarkable. No appendicitis. At this point in time, upon repeat examination after morphine and Zofran, along with IV fluids, she feels improved. I feel she can be discharged safely home with follow-up. I wrote her prescription for a few Zofran ODT's. She will start a clear liquid diet and advance as tolerated. Return instructions to the emergency department were reviewed. She will follow up with her LEATHER SHAVER regarding her ovarian cyst. Patient and mother are agreeable to the plan. Disposition is discharged home in stable condition. Lab Data Attestation: I reviewed the patient's lab results. Labs: Laboratory Results - last 24 hr 02/23/21 02/23/21 02/23/21 04:48 04:48 04:48 WBC 8.0 RBC 4.65 Hgb 13.5 Hct 41.1 MCV 88.4 MCH 29.0 MCHC 32.8 RDW Std Deviation 40.1 RDW Coeff of Karan 12.4 Plt Count 205 MPV 12.3 H Immature Gran % (Auto) 0.200 Neut % (Auto) 81.1 H Lymph % (Auto) 9.1 L [place] % (Auto) 8.2 Eos % (Auto) 1.2 Baso % (Auto) 0.2 Absolute Neuts (auto) 6.5 Absolute Lymphs (auto) 0.73 L Nucleated RBC % 0 Sodium 136 Potassium 3.7 Chloride 105 Carbon Dioxide 25.0 Anion Gap 6 BUN 12 Creatinine 0.62 Estim Creat Clear Calc 144.79 Est GFR (MDRD) Af Amer 157 Est GFR (MDRD) Non-Af 129 BUN/Creatinine Ratio 19.4 Glucose 111 H Calcium 8.6 Total Bilirubin 0.40 AST 21 ALT 35 Alkaline Phosphatase 89 Total Protein 7.8 Albumin 3.8 Globulin 4.0 Albumin/Globulin Ratio 1.0 Lipase 78 Serum , Qual NEGATIVE Urine Color Urine Clarity Urine pH Ur Specific [place] Urine Protein Urine Glucose (UA) Urine Ketones Urine Occult Blood Urine Nitrite Urine Bilirubin Urine Urobilinogen Ur Leukocyte Esterase Urine RBC Urine WBC Ur Squamous Epith Cells Urine Bacteria Urine Mucus 02/23/21 05:22 WBC RBC Hgb Hct MCV MCH MCHC RDW Std Deviation RDW Coeff of Karan Plt Count MPV Immature Gran % (Auto) Neut % (Auto) Lymph % (Auto) [place] % (Auto) Eos % (Auto) Baso % (Auto) Absolute Neuts (auto) Absolute Lymphs (auto) Nucleated RBC % Sodium Potassium Chloride Carbon Dioxide Anion Gap BUN Creatinine Estim Creat Clear Calc Est GFR (MDRD) Af Amer Est GFR (MDRD) Non-Af BUN/Creatinine Ratio Glucose Calcium Total Bilirubin AST ALT Alkaline Phosphatase Total Protein Albumin Globulin Albumin/Globulin Ratio Lipase Serum , Qual Urine Color Yellow Urine Clarity Clear Urine pH 7.0 Ur Specific [place] 1.015 Urine Protein Negative Urine Glucose (UA) Normal Urine Ketones Negative Urine Occult Blood Negative Urine Nitrite Negative Urine Bilirubin Negative Urine Urobilinogen Normal Ur Leukocyte Esterase Negative Urine RBC 0 SEEN Urine WBC 0-5 SEEN Ur Squamous Epith Cells 5-10 SEEN Urine Bacteria 1+ Urine Mucus RARE Radiography Diagnostic Testing: Clinical Impression(s) from Imaging Studies Abdomen/Pelvis CT 02/23/21 05:04 IMPRESSION: There is a 3.8 cm left ovarian cyst. Individualized dose optimization techniques were used for this CT. at 0555 Reported and signed by: Amol Argueta MD Electronically Signed: Amol Argueta MD at 5:54 EST Tel , Service support , Discharge Plan Triage Chief Complaint: Complaint Other Complaint: Nausea/Vomiting ED Provider: Kash Segura Dx/Rx/DC Orders Clinical Impression: Abdominal pain, Back pain, Ovarian cyst Instructions: ED Abdominal Pain Unkn Cause Fem, ED Back Pain (Acute or Chronic), ED Ovarian Cyst Prescriptions: New ondansetron 4 mg tablet,disintegrating 4 mg PO Q6H PRN (Reason: nausea and vomiting) Qty: 14 RF: 0 No Action norgestimate-ethinyl estradiol [Sprintec (28)] 0.25-35 mg-mcg tablet 1 tab PO DAILY RF: 0 doxycycline hyclate 20 mg capsule 20 mg capsule 20 mg PO BID RF: 0 spironolactone 50 mg tablet 100 mg PO 1800 RF: 0 montelukast 10 MG tablet 5 mg PO DAILY RF: 0 loratadine 10 MG tablet 10 mg PO DAILY RF: 0 fluoxetine 20 MG capsule 20 mg PO QHS RF: 0 Primary Care Provider: Anne Marie Perdomo Referrals: Anne Marie Perdomo MD [Primary Care Provider] - Disposition Disposition: Home, Self Care
[2021-02-23] MEDS: Ondansetron 4 MG/2 ML Vial IV (05:17)
[2021-02-23] MEDS: 0.9% Normal Saline 1,000 ML 1000 ML IV (05:17)
[2021-02-23 05:19] LABS: Internal QC Validated? YES +Cl - CLEAR BKGD; Pregnancy, Serum, hCG Quali. NEGATIVE Negative
[2021-02-23] MEDS: Morphine 4 MG/ML Syringe IV (05:19)
[2021-02-23 05:21] LABS: Absolute Lymphocyte Count 0.73 X10^3/uL (0.83-4.51); Absolute Neutrophil Count 6.5 X10^3/uL (2.0-7.7); Basophil# 0.02 X10^3/uL; Basophil% 0.2 % (0-1); Eosinophils% 1.2 % (0-5); Hematocrit 41.1 % (37-47); Hemoglobin 13.5 g/dL (12.0-15.0); Lymphocyte # 0.73 X10^3/ul (0.83-4.51); Lymphocyte % 9.1 % (19-41); Mean Corp Hgb Conc 32.8 g/dL (32-36); Mean Corpuscular Volume 88.4 fL (81-99); Mean Platelet Vol. 12.3 fl (6.2-12.0); Monocyte# 0.66 X10^3/uL; Monocyte% 8.2 % (0-10); NRBC Flagged by Analyzer 0 % (0-5); Neutrophil % 81.1 % (47-70); Platelet Count 205 K/mm3 (150-450); RBC Distribution Width CV 12.4 % (11.6-14.6); RBC Distribution Width SD 40.1 fl (35.1-43.9); Red Blood Count 4.65 M/mm3 (4.2-5.4)
[2021-02-23 05:26] LABS: AST(SGOT) 21 U/L (15-37); Alanine Aminotransfer ALT/SGPT 35 U/L (13-56); Albumin, Serum 3.8 g/dL (3.2-5.0); Alkaline Phosphatase 89 U/L (45-117); Anion Gap 6 (5-15); BUN 12 mg/dL (7-18); BUN/Creat Ratio 19.4 RATIO (10-20); Calcium,Total 8.6 mg/dL (8.5-10.1); Chloride 105 mmol/L (98-107); Creatinine, Serum 0.62 mg/dL (0.55-1.02); EST Glomerular Filtration Rate 129 mL/min (>60); Est Glom Filt Rate - Afr Amer 157 mL/min (>60); Estimated Creatinine Clearance 144.79 ml/min; Glucose 111 mg/dL (74-106); Lipase 78 U/L (73-393); Potassium 3.7 mmol/L (3.5-5.1); Protein, Total 7.8 g/dL (6.4-8.2); Sodium Level 136 mmol/L (136-145)
[2021-02-23 05:33] LABS: Red Blood Cells-Urine 0 SEEN /hpf (0-5)
[2021-02-23 05:41] LABS: Color, Urine Yellow (Yellow); Glucose, Dipstick Normal (Normal); Ketone-Dipstick Negative (Negative); Leukocyte Esterase-Dipstick Negative /ul (Negative); Nitrite-Dipstick Negative (Negative); Occult Blood-Urine Negative /ul (Negative); Protein-Dipstick Negative (Negative); Specific Gravity, Urine 1.015 (1.002-1.030); Urine Bilirubin Dipstick Negative (Negative); Urine Clarity Clear (Clear); Urine Urobilinogen Normal (Normal)
[2021-02-23 05:58] LABS: Bacteria 1+ /hpf (None Seen); Mucous, Urine RARE /hpf (<or=2+); Squamous Epithelial Cells - UA 5-10 SEEN /hpf (5-10); White Blood Cells 0-5 SEEN /hpf (0-5)
[2021-02-23 06:59] VITALS: BP 102/62; PULSE 60; RESP 16; O2SAT 100
== END 2021-02-23 07:00 | disposition home or self-care (01) ==
PROVIDERS: Emergency Provider Emergency Medicine; PCP Internal Medicine
DX: N83.202 Unspecified ovarian cyst, left side (principal); R10.9 Unspecified abdominal pain; M54.9 Dorsalgia, unspecified; R11.2 Nausea with vomiting, unspecified; J45.909 Unspecified asthma, uncomplicated; F41.9 Anxiety disorder, unspecified; Z79.82 Long term (current) use of aspirin; Z79.899 Other long term (current) drug therapy
CPT/HCPCS: 74177; 80053; 81001; 83690; 84703; 85025; 96361; 96374; 96375; 99284; J7030; Q9967; A4216; J2405

== ENCOUNTER 2021-03-24 16:29 | Outpatient (CLI) | payer OTHER, SELFPAY ==
--- NOTE | 2021-03-24 16:35 | US_ITS ---
We are attempting to reach an attending provider to discuss findings. An addendum with communication details will be sent when the communication is complete. STUDY: ULTRASOUND OF THE FEMALE PELVIS - COMPLETE REASON FOR EXAM: Female, 20 years old. Left ovarian cyst LMP: TECHNIQUE: Transabdominal and Transvaginal TECHNICAL QUALITY: Adequate. COMPARISON: 02/15/2021. FINDINGS: The uterus is anteverted and is in a midline position. The uterus measures 6.6 x 4.0 x 3.0 cm. Normal uterine cervix. The endometrium measures 1.4 mm in thickness, and is hyperechoic. There is no demonstrated endometrial mass. There is no demonstrated myometrial mass. I.U.D. - The patient does not have an I.U.D. The right ovary is visualized. The right ovary measures 3.1 x 2.1 x 2.2 cm. There is no right ovarian cyst or ovarian mass. There is no visualized right adnexal mass or complex lesion. There is normal arterial and normal venous vascularity. The left ovary is visualized. The left ovary measures 3.1 x 1.9 x 2.6 cm. There is a 2.1 cm hypoechoic cyst. There is no visualized left adnexal mass or complex lesion. Somewhat limited demonstration of left ovarian vascularity There is no fluid in the cul-de-sac. Polycystic ovary disease: No. US/Transvaginal Non- IMPRESSION: 2.5 cm left ovarian cyst. Left ovarian vascularity is somewhat poorly demonstrated which may be secondary to sonographic technique. Otherwise unremarkable pelvic sonogram. Electronically Signed: Merrill Rojas MD at 17:58 EST ,
--- NOTE | 2021-03-24 16:35 | US_ITS ---
We are attempting to reach an attending provider to discuss findings. An addendum with communication details will be sent when the communication is complete. STUDY: ULTRASOUND OF THE FEMALE PELVIS - COMPLETE REASON FOR EXAM: Female, 20 years old. Left ovarian cyst LMP: TECHNIQUE: Transabdominal and Transvaginal TECHNICAL QUALITY: Adequate. COMPARISON: 02/15/2021. FINDINGS: The uterus is anteverted and is in a midline position. The uterus measures 6.6 x 4.0 x 3.0 cm. Normal uterine cervix. The endometrium measures 1.4 mm in thickness, and is hyperechoic. There is no demonstrated endometrial mass. There is no demonstrated myometrial mass. I.U.D. - The patient does not have an I.U.D. The right ovary is visualized. The right ovary measures 3.1 x 2.1 x 2.2 cm. There is no right ovarian cyst or ovarian mass. There is no visualized right adnexal mass or complex lesion. There is normal arterial and normal venous vascularity. The left ovary is visualized. The left ovary measures 3.1 x 1.9 x 2.6 cm. There is a 2.1 cm hypoechoic cyst. There is no visualized left adnexal mass or complex lesion. Somewhat limited demonstration of left ovarian vascularity There is no fluid in the cul-de-sac. Polycystic ovary disease: No. US/Pelvic (Non ) IMPRESSION: 2.5 cm left ovarian cyst. Left ovarian vascularity is somewhat poorly demonstrated which may be secondary to sonographic technique. Otherwise unremarkable pelvic sonogram. Electronically Signed: Merrill Rojas MD at 17:58 EST ,
== END 2021-03-24 23:59 | disposition short-term general hospital (02) ==
LOC: US 16:31
PROVIDERS: PCP Internal Medicine; Visit Provider Obstetrics & Gynecology
DX: N83.202 Unspecified ovarian cyst, left side (principal)
CPT/HCPCS: 76830; 76856

== ENCOUNTER 2021-03-26 16:48 | Outpatient (CLI) | payer OTHER, SELFPAY ==
[2021-03-29 18:08] LABS: Chlamydia By Nucleic Acid AMP Negative (Negative)
[2021-03-30 10:10] LABS: Gonococcus By Nucleic Acid AMP Negative (Negative)
== END 2021-03-26 23:59 | disposition short-term general hospital (02) ==
LOC: LABSPEC 16:49
PROVIDERS: PCP Internal Medicine; Visit Provider Obstetrics & Gynecology
DX: Z11.3 Encounter for screening for infections with a predominantly sexual mode of transmission (principal)
CPT/HCPCS: 87491; 87591

== ENCOUNTER 2021-07-05 16:55 | Emergency (ER) | payer OTHER, SELFPAY ==
[2021-07-05 16:56] VITALS: BP 120/77; PULSE 76; RESP 15; TEMP 37.2; O2SAT 98; BMI 25.8
--- NOTE | 2021-07-05 18:52 | ED.VIS.GI ---
HPI HPI - GI History of Present Illness Chief Complaint: Abd Pain Informant: patient Abdominal Pain/Flank Pain Onset: Today Context: Sudden Onset Timing: Intermittent and Lasts (Minutes) Quality: Cramping and Sharp Location: RLQ and LLQ Worsened by: Nothing Relieved by: - (Tylenol) Nausea/Vomiting/Emesis GI Symptom: Negative for Nausea and Vomiting Diarrhea/Melena/Hematochezia GI Symptom: Negative for Diarrhea, Melena and Hematochezia Associated Symptoms Associated Symptoms: Negative for Dysuria, Frequency and Hematuria Narrative Narrative: Patient presents with lower abdominal pain that has been intermittent today. Patient states that when it comes on it lasts for a few minutes and then resolves. Patient describes the pain as stabbing and cramping. Patient states it is over the lower abdomen. Patient states it gets better with Tylenol. Patient denies any nausea or vomiting. Patient denies any diarrhea, melena, or hematochezia. Patient denies any dysuria, frequency, or hematuria. Patient states her last menstrual period was 06/11/2021. PFSH [facility] Medical History Allergies Anxiety about blushing Asthma Back problem Chronic neck pain Chronic thoracic back pain Contact dermatitis Frequent headaches Hypertrophic scar of skin Intertrigo Macromastia Shoulder pain Home Medications loratadine 10 mg PO DAILY 12/19/14 [History Last Taken Unknown] montelukast 5 mg PO DAILY 12/19/14 [History Last Taken Unknown] spironolactone 50 mg tablet 100 mg PO 1800 09/09/19 [History Last Taken Unknown] multivitamin 1 tab PO DAILY 03/19/21 [History Last Taken Unknown] isotretinoin 30 mg capsule 30 mg PO BID 04/29/21 [History Last Taken Unknown] escitalopram oxalate [Lexapro] 20 mg PO DAILY 07/05/21 [History Last Taken Unknown] prednisone 10 mg PO DAILY 07/05/21 [History Last Taken Unknown] Allergy/AdvReac Type Severity Reaction Status Date / Time latex Allergy Intermediate SKIN RASH Verified 07/05/21 16:59 AND ITCHING cefadroxil [From [facility]] Allergy Hives Verified 07/05/21 16:59 chloroprep Allergy Intermediate rash and Uncoded 07/05/21 16:59 itching Family History (Reviewed 04/29/21 @ 16:30 by Rosa M Rivera FREELANCE GRAPHIC DESIGNER, FREELANCE GRAPHIC DESIGNER-C) Mother Hypertension Father Hypertension High cholesterol Grandmother Arthritis Bowel disease Breast cancer Diabetes Heart disease Hypertension CVA (cerebral vascular accident) Thyroid disorder Grandfather Heart disease Hypertension Grandfather Heart disease Hypertension COPD (chronic obstructive pulmonary disease) Surgical History History of bilateral breast reduction surgery History of excision of lesion Social History Smoking Status: Never smoker alcohol intake: current details: occasionally substance use type: does not use caffeine: No what type of physical activity do you participate in: aerobics and weight training frequency: daily seatbelt use: always do you feel safe at home: Yes additional social history: Single Works at [employer] Recreational ROS ROS ED Constitutional Constitutional ED: Denies chills or fever(s) Eyes Eyes: Denies blurry vision or change in vision ENT ENT ED: Denies rhinorrhea or sore throat Cardiovascular Cardiovascular: Denies chest pain or palpitations Respiratory/Chest Respiratory/Chest: Denies cough or dyspnea Gastrointestinal Gastrointestinal: Reports abdominal pain; Denies nausea or vomiting Genitourinary Genitourinary ED: Denies dysuria or hematuria Musculoskeletal Musculoskeletal: Denies back pain or neck pain Integumentary Denies abscess or rash Neurologic Neurologic: Denies headache(s) or weakness Allergic/Immunologic Allergic/Immunologic ED: Denies mouth swelling or urticaria EXAM Physical Exam Const Vital Signs: 07/05/21 16:56 Temperature 99 F Temperature Source Temporal Pulse Rate 76 Respiratory Rate 15 Blood Pressure 120/77 Blood Pressure Mean 91 Pulse Ox 98 Oxygen Delivery Method Room Air Positive well nourished and well developed General Appearance ED: well developed HEENT Reports moist mucous membranes Neck supple and no JVD Resp normal respiratory effort and clear to auscultation bilaterally Cardio regular rate, regular rhythm and no murmurs GI normal to inspection, nondistended, normoactive bowel sounds and non-distended Auscultation: normoactive bowel sounds Palpation: soft and tender LLQ, RLQ and suprapubic; Negative for guarding or rebound tenderness present Extremity normal to inspection General Extremety ED: Negative for edema or tenderness General Extremity: Negative for edema Neuro oriented x3, CN's II-XII intact bilaterally and no sensory deficits noted Sensorium / Orientation: alert Motor Exam: strength 5/5 throughout Psych mental status grossly normal Skin no rashes or lesions noted MDM MDM MDM Narrative Medical decision making narrative: Patient was given IV fluids and morphine here. CBC was within normal limits. Comprehensive metabolic profile was within normal limits. Serum hCG was negative. Urinalysis does not show any evidence of urinary tract infection or hematuria. Pelvic ultrasound was obtained. There is a small left ovarian cyst. There is no torsion noted. There is no free fluid noted. The IUD is in place. This was interpreted by the radiologist and reviewed by myself. Patient was advised of her findings. Patient was instructed to take Tylenol as needed for pain. Patient was instructed to follow-up with her HYDRATOR OPERATOR in 3 to 5 days. Patient understood and was agreeable with the plan. All questions were answered. Lab Data Attestation: I reviewed the patient's lab results. Labs: Laboratory Results - last 24 hr 07/05/21 07/05/21 07/05/21 19:00 19:00 19:00 WBC 7.5 RBC 4.62 Hgb 13.9 Hct 41.6 MCV 90.0 MCH 30.1 MCHC 33.4 RDW Std Deviation 41.5 RDW Coeff of Karan 12.7 Plt Count 264 MPV 11.2 Immature Gran % (Auto) 0.100 Neut % (Auto) 66.4 Lymph % (Auto) 23.3 [place] % (Auto) 9.5 Eos % (Auto) 0.4 Baso % (Auto) 0.3 Absolute Neuts (auto) 5.0 Absolute Lymphs (auto) 1.76 Nucleated RBC % 0 Sodium 138 Potassium 3.6 Chloride 103 Carbon Dioxide 30.0 Anion Gap 5 BUN 6 L Creatinine 0.63 Estim Creat Clear Calc 137.36 Est GFR (MDRD) Af Amer 152 Est GFR (MDRD) Non-Af 125 BUN/Creatinine Ratio 9.5 L Glucose 89 Calcium 9.2 Total Bilirubin 0.20 AST 11 L ALT 30 Alkaline Phosphatase 74 Total Protein 8.5 H Albumin 3.9 Globulin 4.6 H Albumin/Globulin Ratio 0.8 L Serum , Qual NEGATIVE Urine Color Urine Clarity Urine pH Ur Specific [place] Urine Protein Urine Glucose (UA) Urine Ketones Urine Occult Blood Urine Nitrite Urine Bilirubin Urine Urobilinogen Ur Leukocyte Esterase Urine RBC Urine WBC Ur Squamous Epith Cells Urine Bacteria Urine Mucus 07/05/21 19:10 WBC RBC Hgb Hct MCV MCH MCHC RDW Std Deviation RDW Coeff of Karan Plt Count MPV Immature Gran % (Auto) Neut % (Auto) Lymph % (Auto) [place] % (Auto) Eos % (Auto) Baso % (Auto) Absolute Neuts (auto) Absolute Lymphs (auto) Nucleated RBC % Sodium Potassium Chloride Carbon Dioxide Anion Gap BUN Creatinine Estim Creat Clear Calc Est GFR (MDRD) Af Amer Est GFR (MDRD) Non-Af BUN/Creatinine Ratio Glucose Calcium Total Bilirubin AST ALT Alkaline Phosphatase Total Protein Albumin Globulin Albumin/Globulin Ratio Serum , Qual Urine Color Yellow Urine Clarity Clear Urine pH 7.0 Ur Specific [place] 1.010 Urine Protein Negative Urine Glucose (UA) Normal Urine Ketones Negative Urine Occult Blood 50 H Urine Nitrite Negative Urine Bilirubin Negative Urine Urobilinogen Normal Ur Leukocyte Esterase Negative Urine RBC 0 SEEN Urine WBC 0 SEEN Ur Squamous Epith Cells 0 SEEN Urine Bacteria 0 SEEN Urine Mucus 0 SEEN Radiography Diagnostic Testing: Clinical Impression(s) from Imaging Studies Transvaginal US 07/05/21 18:56 IMPRESSION: 1. Similar left ovarian cyst. No evidence of ovarian torsion. No pelvic free fluid. 2. IUD. Electronically Signed: Deejay Mancuso MD ([place]) at 20:23 EDT Reading Location ID and State: [facility] / [place] , Service support , Discharge Plan Triage Chief Complaint: Abd Pain ED Provider: Lopez Noguera Dx/Rx/DC Orders Clinical Impression: Pelvic pain, Ovarian cyst Instructions: ED Ovarian Cyst, ED Pelvic Pain, Unknown Cause Prescriptions: No Action spironolactone 50 mg tablet 100 mg PO 1800 RF: 0 multivitamin Tablet 1 tab PO DAILY RF: 0 isotretinoin [Accutane] 30 mg capsule 30 mg PO BID RF: 0 montelukast 10 MG tablet 5 mg PO DAILY RF: 0 loratadine 10 MG tablet 10 mg PO DAILY RF: 0 prednisone 10 mg Tablet 10 mg PO DAILY RF: 0 escitalopram oxalate [Lexapro] 20 mg Tablet 20 mg PO DAILY RF: 0 Primary Care Provider: Anne Marie Perdomo Referrals: Kristine Yoon DO [STAFF PHYSICIAN] - 3-5 Days Anne Marie Perdomo MD [Primary Care Provider] - 3-5 Days Disposition Disposition: Home, Self Care
--- NOTE | 2021-07-05 18:56 | US_ITS ---
STUDY: ULTRASOUND TRANSVAGINAL CLINICAL: Female, 20 years old. Pelvic pain TECHNIQUE: Transvaginal COMPARISON: 03/24/2021 FINDINGS: Normal uterine size measuring 3.0 x 4.7 x 3.2 cm in maximal craniocaudal dimension. There are no myometrial masses. Normal endometrial thickness measuring 4 mm. There are no endometrial masses, and there is no fluid in the endometrial cavity. IUD noted. Mild amount of fluid in the cervix. Normal right ovary, measuring 2.9 x 2.1 x 2.2 cm. There are multiple follicles without a dominant cyst. Normal left ovary, measuring 3.3 x 2.7 x 3.1 cm. Anechoic cyst of the left ovary measures 2.4 cm. There is no free fluid in the pelvis. US/Transvaginal Non- IMPRESSION: 1. Similar left ovarian cyst. No evidence of ovarian torsion. No pelvic free fluid. 2. IUD. Electronically Signed: Deejay Mancuso MD ([place]) at 20:23 EDT ,
[2021-07-05 19:12] LABS: Absolute Lymphocyte Count 1.76 X10^3/uL (0.83-4.51); Basophil# 0.02 X10^3/uL; Basophil% 0.3 % (0-1); Eosinophil# 0.03 X10^3/uL; Eosinophils% 0.4 % (0-5); Hematocrit 41.6 % (37-47); Hemoglobin 13.9 g/dL (12.0-15.0); Lymphocyte # 1.76 X10^3/ul (0.83-4.51); Lymphocyte % 23.3 % (19-41); Mean Corp Hgb Conc 33.4 g/dL (32-36); Mean Corpuscular Hgb 30.1 pg (27.0-32.0); Mean Platelet Vol. 11.2 fl (6.2-12.0); Monocyte# 0.72 X10^3/uL; Monocyte% 9.5 % (0-10); NRBC Flagged by Analyzer 0 % (0-5); Neutrophil % 66.4 % (47-70); Platelet Count 264 K/mm3 (150-450); RBC Distribution Width CV 12.7 % (11.6-14.6); RBC Distribution Width SD 41.5 fl (35.1-43.9); Red Blood Count 4.62 M/mm3 (4.2-5.4); White Blood Count 7.5 K/mm3 (4.4-11.0)
[2021-07-05] MEDS: Morphine 2 MG/ML Syringe IV (19:14)
[2021-07-05] MEDS: 0.9% Normal Saline 1,000 ML 1000 ML IV (19:14)
[2021-07-05 19:19] LABS: Internal QC Validated? YES +Cl - CLEAR BKGD; Pregnancy, Serum, hCG Quali. NEGATIVE Negative
[2021-07-05 19:27] LABS: ALB/GLOB Ratio 0.8 RATIO (0.9-2.4); AST(SGOT) 11 U/L (15-37); Alanine Aminotransfer ALT/SGPT 30 U/L (13-56); Albumin, Serum 3.9 g/dL (3.2-5.0); Alkaline Phosphatase 74 U/L (45-117); Anion Gap 5 (5-15); BUN 6 mg/dL (7-18); BUN/Creat Ratio 9.5 RATIO (10-20); Calcium,Total 9.2 mg/dL (8.5-10.1); Chloride 103 mmol/L (98-107); Creatinine, Serum 0.63 mg/dL (0.55-1.02); EST Glomerular Filtration Rate 125 mL/min (>60); Est Glom Filt Rate - Afr Amer 152 mL/min (>60); Estimated Creatinine Clearance 137.36 ml/min; Globulin 4.6 g/dL (2.2-4.2); Glucose 89 mg/dL (74-106); Potassium 3.6 mmol/L (3.5-5.1); Protein, Total 8.5 g/dL (6.4-8.2); Sodium Level 138 mmol/L (136-145)
[2021-07-05 19:28] LABS: Bacteria 0 SEEN /hpf (None Seen); Mucous, Urine 0 SEEN /hpf (<or=2+); Red Blood Cells-Urine 0 SEEN /hpf (0-5); Squamous Epithelial Cells - UA 0 SEEN /hpf (5-10); White Blood Cells 0 SEEN /hpf (0-5)
[2021-07-05 19:30] LABS: Color, Urine Yellow (Yellow); Glucose, Dipstick Normal (Normal); Ketone-Dipstick Negative (Negative); Leukocyte Esterase-Dipstick Negative /ul (Negative); Nitrite-Dipstick Negative (Negative); Occult Blood-Urine 50 /ul (Negative); Protein-Dipstick Negative (Negative); Urine Bilirubin Dipstick Negative (Negative); Urine Clarity Clear (Clear); Urine Urobilinogen Normal (Normal)
[2021-07-05 21:41] VITALS: BP 124/68; PULSE 72; RESP 16; O2SAT 99
== END 2021-07-05 21:43 | disposition home or self-care (01) ==
PROVIDERS: Emergency Provider Emergency Medicine; PCP Internal Medicine; Visit Provider Emergency Medicine
DX: R10.2 Pelvic and perineal pain (principal); N83.202 Unspecified ovarian cyst, left side; Z97.5 Presence of (intrauterine) contraceptive device
CPT/HCPCS: 76830; 80053; 81001; 84703; 85025; 93976; 96361; 96374; 99283; J7030; A4216

== ENCOUNTER → 2022-04-29 | Outpatient (CLI) | payer OTHER, SELFPAY ==
--- NOTE | 2022-04-29 18:34 | US_ITS ---
EXAM: US PELVIS TRANSABDOMINAL AND TRANSVAGINAL, COMPLETE CLINICAL INDICATION: OV CYST TECHNIQUE: Transabdominal and transvaginal pelvic ultrasound was performed with grayscale and color Doppler imaging. Transvaginal imaging was used for better evaluation of the endometrium and adnexa. This report was created using [employer] report [employer] technology. COMPARISON: None. FINDINGS: UTERUS/CERVIX: IUD in the endometrial cavity in good position. Anteverted. There is no uterine mass. The uterus measures 7.6 x 4.9 x 2.9 cm. The endometrial stripe measures 0.5 cm in thickness. RIGHT OVARY: Complex cyst measuring 3.8 x 3.5 x 3.2 cm with numerous fine septations. Blood flow is present in the right ovary. The right ovary measures 5.7 x 4.7 x 4.1 cm. LEFT OVARY: Unremarkable. Blood flow is present in the left ovary. The left ovary measures 3.0 x 1.8 x 1.5 cm. FREE FLUID: Moderate amount of free fluid in the pelvic cul-de-sac. BLADDER: Unremarkable as visualized. Wall is normal thickness for degree of distention. US/Pelvic w/ Transvaginal IMPRESSION: 1. Hemorrhagic cyst measuring 3.2 x 3.5 x 3.2 cm right ovary. 2. Moderate amount of free fluid in the pelvic cul-de-sac. 3. IUD in the endometrial cavity in good position. Electronically Signed: Juan J Linares MD at 7:45 EST ,
== END | disposition home or self-care (01) ==
LOC: US 18:34
PROVIDERS: PCP Internal Medicine; Visit Provider Obstetrics & Gynecology
DX: N83.201 Unspecified ovarian cyst, right side (principal); Z30.431 Encounter for routine checking of intrauterine contraceptive device
CPT/HCPCS: 76830; 76856

== ENCOUNTER → 2022-07-04 | Outpatient (CLI) | payer OTHER, SELFPAY ==
--- NOTE | 2022-07-04 16:25 | US_ITS ---
EXAM: US PELVIS TRANSABDOMINAL AND TRANSVAGINAL, COMPLETE CLINICAL INDICATION: None provided. HX OVARIAN CYSTS -- PAIN TECHNIQUE: Transabdominal and transvaginal pelvic ultrasound was performed with grayscale and color Doppler imaging. Transvaginal imaging was used for better evaluation of the endometrium and adnexa. COMPARISON: April 29, 2022. FINDINGS: UTERUS/CERVIX: Uterus 6.1 cm x 2.4 cm x 4.1 cm. Endometrial stripe is thin at 3 mm with shadowing from adequately positioned IUD in the midline. There is no uterine mass. RIGHT OVARY: Right ovary 2.8 cm x 2 cm x 4.4 cm with documented blood flow. Multiple tiny follicles. LEFT OVARY: Left ovary 3.1 cm x 1.4 cm x 3.5 cm with documented blood flow. Multiple tiny follicles. FREE FLUID: None. BLADDER: Prominently distended urinary bladder, 14.1 cm maximum diameter, calculated volume 721 cc. US/Pelvic (Non ) IMPRESSION: No acute findings. IUD. Tiny ovarian follicles. Minimal documented blood flow in the left ovary but normal size and no surrounding fluid, appearance arguing against torsion. Electronically Signed: Leeann Ferguson MD at 8:52 EDT ,
== END | disposition home or self-care (01) ==
PROVIDERS: PCP Internal Medicine; Referring Provider Nurse Practitioner Women's Health; Visit Provider Nurse Practitioner Women's Health
DX: N83.209 Unspecified ovarian cyst, unspecified side (principal)
CPT/HCPCS: 76830; 76856

== ENCOUNTER → 2023-01-09 | Outpatient (CLI) | payer OTHER, SELFPAY ==
--- NOTE | 2023-01-09 16:15 | MRI_ITS ---
STUDY: MRI RIGHT KNEE REASON FOR EXAM: Female, 22 years old. Pain. Knee achiness since 2019. TECHNIQUE: Standardized fat and water weighted pulse sequences were obtained in all 3 orthogonal planes. COMPARISON: None. FINDINGS: Normal medial meniscus. Normal hyaline cartilage of the medial femorotibial compartment. Normal medial femoral condyle and tibial plateau. Normal medial collateral ligamentous complex (MCL). Normal distal semimembranosus, gracilis and semitendinosus tendons. Normal lateral meniscus. Normal hyaline cartilage of the lateral femorotibial compartment. Normal lateral femoral condyle and tibial plateau. Normal proximal tibiofibular articulation. Normal lateral collateral (fibular) ligament. Normal popliteus tendon. Normal biceps femoris tendon. Normal anterior cruciate ligament (ACL). Normal posterior cruciate ligament (PCL). Normal congruent patellofemoral articulation. Normal hyaline cartilage of the patellofemoral compartment. Normal medial and lateral patellar retinaculum. Normal quadriceps tendon. Normal patellar tendon. Normal Hoffa''s fat pad. There is a tiny joint effusion. There is no popliteal cyst. The soft tissues are unremarkable. The otherwise visualized osseous structures are unremarkable. MRI/Lower Ext Joint Only (Routine) IMPRESSION: Tiny joint effusion. No discrete meniscal tear or acute ligamentous injury. Electronically Signed: Sourav Talbot MD at 19:31 EST ,
== END | disposition home or self-care (01) ==
LOC: MRI 15:44
PROVIDERS: PCP Internal Medicine; Referring Provider Physician Assistant; Visit Provider Physician Assistant
DX: S83.8X1A Sprain of other specified parts of right knee, initial encounter (principal); M25.561 Pain in right knee
CPT/HCPCS: 73721

== ENCOUNTER 2023-02-18 04:34 | Emergency (ER) | payer OTHER, SELFPAY ==
[2023-02-18 04:34] VITALS: BP 126/78; PULSE 78; RESP 18; TEMP 36.6; O2SAT 98; BMI 27.3
--- NOTE | 2023-02-18 04:50 | RAD_ITS ---
INDICATION: pain EXAMINATION/TECHNIQUE: X-RAY - XR Chest 1 View COMPARISON: CR ChestOct 2014 FINDINGS: LINES/DEVICES: None. LUNGS: No consolidation, edema or effusion. No pneumothorax. MEDIASTINUM AND CARDIOVASCULAR STRUCTURES: Cardiac silhouette not enlarged. Central airways and mediastinal contour are unremarkable. BONES AND SOFT TISSUES: Unremarkable. RAD/Chest 1 View (Portable) IMPRESSION: No radiographic evidence of acute cardiopulmonary disease. Electronically Signed: Isidro Padilla MD at 5:58 EST ,
[2023-02-18] MEDS: 0.9% Normal Saline (1000mL) 1,000 ML 1000 ML IV (05:29)
--- NOTE | 2023-02-18 05:43 | EDS_ITS ---
HPI HPI - URI History of Present Illness Chief Complaint: Sore Throat Onset/Context/Timing Onset: Yesterday Context: Gradual Onset Timing: Continuous Quality: Sharp, burning, and aching Location: Throat Worsened by: Swallowing Relieved by: - (Nothing) Associated Symptoms Associated Symptoms: Positive for Nasal Congestion, Headache and Chest Pain; Negative for Sinus Pressure, Myalgias, Nausea, Vomiting, Diarrhea, Shortness of Breath, Nonproductive cough, Hemoptysis or Productive Cough Narrative Narrative: Patient presents with a sore throat that has been getting worse since yesterday. Patient states her pain is worse with swallowing. Patient describes it as burning, sharp, and aching. Patient states nothing makes it better. Patient admits to some nasal congestion and headache. Patient also admits to some pain in her chest. Patient denies any shortness of breath or cough. Patient denies any nausea, vomiting, or diarrhea. Patient is currently on an antibiotic for urinary tract infection. ROS ROS ED Constitutional Constitutional ED: Denies chills or fever(s) Eyes Eyes: Denies blurry vision or change in vision ENT ENT ED: Reports rhinorrhea; Denies sore throat Cardiovascular Cardiovascular: Reports chest pain; Denies palpitations Respiratory/Chest Respiratory/Chest: Denies cough or dyspnea Gastrointestinal Gastrointestinal: Denies nausea or vomiting Genitourinary Genitourinary ED: Denies dysuria or hematuria Musculoskeletal Musculoskeletal: Reports back pain; Denies neck pain Integumentary Denies abscess or rash Neurologic Neurologic: Denies headache(s) or weakness Allergic/Immunologic Allergic/Immunologic ED: Denies mouth swelling or urticaria [facility] Medical History Allergies Anxiety about blushing Asthma Back problem Chronic neck pain Chronic thoracic back pain Contact dermatitis Frequent headaches Hypertrophic scar of skin Intertrigo Macromastia Shoulder pain Home Medications montelukast 10 mg tablet 5 mg PO DAILY allergies 12/19/14 [History Last Taken Unknown] multivitamin 1 tab PO DAILY 03/19/21 [History Last Taken Unknown] escitalopram oxalate 20 mg tablet (Lexapro) 10 mg PO DAILY 04/26/22 [History Last Taken Unknown] levofloxacin 750 mg tablet 750 mg PO DAILY #7 tabs 02/18/23 [Rx Last Taken Unknown] Allergy/AdvReac Type Severity Reaction Status Date / Time chlorhexidine Allergy Intermediate Rash Verified 02/18/23 04:34 [From ChloraPrep Clear] isopropyl alcohol Allergy Intermediate Rash Verified 02/18/23 04:34 [From ChloraPrep Clear] latex Allergy Intermediate SKIN RASH Verified 02/18/23 04:34 AND ITCHING cefadroxil [From [facility]] Allergy Hives Verified 02/18/23 04:34 Family History (Updated 04/26/22 @ 08:49 by Neelima Dangelo) Mother Hypertension Father Hypertension High cholesterol Skin cancer Grandmother Arthritis Bowel disease Breast cancer Diabetes Heart disease Hypertension CVA (cerebral vascular accident) Thyroid disorder Grandfather Heart disease Hypertension Grandfather Heart disease Hypertension COPD (chronic obstructive pulmonary disease) Surgical History History of bilateral breast reduction surgery History of excision of lesion Social History Smoking Status: Never smoker alcohol intake: current details: occasionally substance use type: does not use caffeine: No what type of physical activity do you participate in: aerobics and weight training frequency: daily seatbelt use: always do you feel safe at home: Yes additional social history: Single Works at [email or web address]creational EXAM Physical Exam Const Vital Signs: 02/18/23 04:34 02/18/23 08:21 Temperature 97.8 F Temperature Source Temporal Pulse Rate 78 82 Respiratory Rate 18 16 Blood Pressure 126/78 H 128/77 H Blood Pressure Mean 94 94 Pulse Ox 98 98 Positive well nourished and well developed General Appearance ED: well developed and NAD HEENT Reports moist mucous membranes normocephalic Throat: posterior oropharynx abnormal Positive for edema and erythema Neck supple, no meningeal signs and no JVD General: lymphadenopathy anterior cervical tender; Negative for anterior neck swelling Resp normal respiratory effort and clear to auscultation bilaterally Cardio Rate: regular rate Rhythm: regular rhythm GI non-tender and non-distended Palpation: soft Extremity normal to inspection and full ROM Neuro oriented x3, CN's II-XII intact bilaterally and no sensory deficits noted Sensorium / Orientation: alert Motor Exam: strength 5/5 throughout Psych mental status grossly normal MDM MDM MDM Narrative Medical decision making narrative: Differential diagnosis includes strep pharyngitis, viral pharyngitis, COVID-19 infection, pneumonia, and urinary tract infection. Rapid strep will be obtained to assess for strep pharyngitis. COVID-19 rapid antigen will be obtained to assess for COVID-19 infection. Urinalysis will be obtained to assess for urinary tract infection. Urine hCG will be obtained to assess for . Chest x-ray will be obtained to assess for pneumonia. Lab Data Attestation: I reviewed the patient's lab results. Lab results narrative: Rapid strep was reviewed and was positive. COVID-19 rapid antigen was reviewed and was negative. Urinalysis was reviewed. There were 25-50 white blood cells and 1+ bacteria. Leukocyte esterase was 500. Urine hCG was reviewed and was negative. Labs: Laboratory Results - last 24 hr 02/18/23 06:25 Urine Color Yellow Urine Clarity Clear Urine pH 7.0 Ur Specific [place] 1.015 Urine Protein Negative Urine Glucose (UA) Normal Urine Ketones Negative Urine Occult Blood 25 H Urine Nitrite Negative Urine Bilirubin Negative Urine Urobilinogen Normal Ur Leukocyte Esterase 500 H Urine RBC 5-10 SEEN Urine WBC 25-50 SEEN Ur Squamous Epith Cells 5-10 SEEN Urine Bacteria 1+ Urine Mucus 0 SEEN Urine Test Negative Radiography Diagnostic Testing: Clinical Impression(s) from Imaging Studies Chest X-Ray 02/18/23 04:50 IMPRESSION: No radiographic evidence of acute cardiopulmonary disease. Electronically Signed: Isidro Padilla MD at 5:58 EST , Portable 1 view chest x-ray was obtained. On my independent interpretation, lung lombardo are clear. There is normal cardiac silhouette. Bony thorax is normal. There is no acute process noted. Radiologist also interpreted the x- ray and agrees. Treatment and Re-Evaluation Narrative: Patient was given IV fluids and Zofran here. Patient was advised of her findings. Patient was given a dose of Levaquin here. Patient was able to swallow this. Patient was given a prescription for Levaquin. Patient was instructed to continue Tylenol or ibuprofen as needed for any fevers and pain. Patient was instructed to follow-up with her primary care physician in 5 to 7 days. Patient and mother understood and were agreeable with the plan. All questions were answered. Discharge Plan Triage Chief Complaint: Sore Throat ED Provider: Lopez Noguera Dx/Rx/DC Orders Clinical Impression: Urinary tract infection, Acute streptococcal pharyngitis Instructions: ED Pharyngitis, Strep (Confirmed), ED Cystitis Female Adult Prescriptions: New levofloxacin 750 mg tablet 750 mg PO DAILY Qty: 7 0RF No Action multivitamin Tablet 1 tab PO DAILY montelukast 10 MG tablet 5 mg PO DAILY escitalopram oxalate [Lexapro] 20 mg tablet 10 mg PO DAILY Primary Care Provider: Anne Marie Perdomo Referrals: Anne Marie Perdomo MD [Primary Care Provider] - 3-5 Days Disposition Disposition: Home, Self Care Discharge Date/Time: 02/18/23 08:23
[2023-02-18 06:33] LABS: Color, Urine Yellow (Yellow); Glucose, Dipstick Normal (Normal); Ketone-Dipstick Negative (Negative); Leukocyte Esterase-Dipstick 500 /ul (Negative); Mucous, Urine 0 SEEN /hpf (<or=2+); Nitrite-Dipstick Negative (Negative); Occult Blood-Urine 25 /ul (Negative); Protein-Dipstick Negative (Negative); Specific Gravity, Urine 1.015 (1.002-1.030); Urine Bilirubin Dipstick Negative (Negative); Urine Clarity Clear (Clear); Urine Urobilinogen Normal (Normal)
[2023-02-18 06:45] LABS: Bacteria 1+ /hpf (None Seen); Internal QC Validated? YES +Cl - CLEAR BKGD; Pregnancy, Urine Negative Negative; Red Blood Cells-Urine 5-10 SEEN /hpf (0-5); Squamous Epithelial Cells - UA 5-10 SEEN /hpf (5-10); White Blood Cells 25-50 SEEN /hpf (0-5)
[2023-02-18] MEDS: levoFLOXacin 750 MG Tablet PO (07:16)
[2023-02-18] MEDS: Ondansetron ODT 4 MG Tablet PO (08:03)
[2023-02-18 08:21] VITALS: BP 128/77; PULSE 82; RESP 16; O2SAT 98
== END 2023-02-18 08:23 | disposition home or self-care (01) ==
PROVIDERS: Emergency Provider Emergency Medicine; PCP Internal Medicine; Visit Provider Emergency Medicine
DX: J02.0 Streptococcal pharyngitis (principal); N39.0 Urinary tract infection, site not specified; R07.9 Chest pain, unspecified; M54.9 Dorsalgia, unspecified
CPT/HCPCS: 71045; 81001; 81025; 87077; 87086; 87088; 87811; 87880; 96360; 96361; 99284; J7030

== ENCOUNTER → 2023-05-08 | Outpatient (CLI) | payer OTHER, SELFPAY ==
[2023-05-08 16:39] LABS: HIV - WCH Non-Reactive (Nonreactive); Hepatitis B Surface Antigen Non-Reactive (Nonreactive); Hepatitis C Antibody Non-Reactive (Nonreactive); Syphilis Antibodies Non-reactive
--- OUTSIDE RECORDS SUMMARY | 2023-05-08 20:39 | XMS RPT_ITS | CCD ---
Author Name Unknown Address [address] [place] [address] Organization [facility] Care Team Providers Care Doctor Of Osteopathy Name Role Phone LAVONNE, DR SUGAR Bee Attending Unavaila sally BANERJEE, DR SUGAR Bee Primary Care Unavaila sally BANERJEE, DR SUGAR Bee Admitting Unavaila sally Perdomo MD, Augustin Barkley Primary Care Provider Augustin Perdomo MD Primary Care Provider Augustin Perdomo MD Primary Care Provider SHELLY, AUGUSTIN D Primary Care Unavailable WILLIAM WESLEY Attending Unavailable TALAMPAS, AUGUSTIN D Primary Care Unavailable RICHELLE LEBLANC Attending Unavailable TALAMPAS, AUGUSTIN D Primary Care Unavailable RICHELLE LEBLANC Referring Unavailable TALAMPAS, AUGUSTIN D Primary Care Unavailable TALAMPAS, AUGUSTIN D Primary Care Unavailable YULIA BRUCE Attending Unavailable TALAMPAS, AUGUSTIN D Primary Care Unavailable TALAMPAS, AUGUSTIN D Primary Care Unavailable TALAMPAS, AUGUSTIN D Primary Care Unavailable TALAMPAS, AUGUSTIN D Primary Care Unavailable TALAMPAS, AUGUSTIN D Primary Care Unavailable TALAMPAS, AUGUSTIN D Primary Care Unavailable YOHANA SWIFT Attending Unavailable TALAMPAS, AUGUSTIN D Primary Care Unavailable YOHANA SWIFT Referring Unavailable TALAMPAS, AUGUSTIN D Primary Care Unavailable TALAMPAS, AUGUSTIN D Primary Care Unavailable Allergies Allergy Classification Reported Allergen(s) Allergy Type Date of Onset Reaction(s) Facility (20 sources) Cefadroxil; Translations: [CEFADROXIL] Drug Allergy 06-28-2006 [facility] (20 sources) Clindamycin; Translations: [CLINDAMYCIN] Drug Allergy 02-03-2020 [facility] Work Phone: Medications Current Medications Medication Drug Class(es) Dates Sig (Normalized) Sig (Original) acetaminophen 500 mg oral tablet (18 sources) Start: 02-23-2021 End: 06-20-2022 take 2 tablets by mouth every six hours as needed acetaminophen (TYLENOL EXTRA STRENGTH) 500 mg tablet Take 2 tablets by mouth every 6 hours as needed (Pain). FOR PAIN. 0 02/23/2021 06/20/2022 Discontinued (Discontinued by Patient) Completed/Discontinued Medications Medication Drug Class(es) Dates Sig (Normalized) Sig (Original) [id number] 200 actuat albuterol 0.09 mg/actuat metered dose inhaler (20 sources) beta2-Adrenergic Agonist Start: 01-24-2023 take 2 puff(s) by inhalation every four hours as needed for wheezing albuterol HFA (VENTOLIN HFA) 90 mcg/actuation inhaler Inhale 2 Puffs as instructed every 4 hours as needed for wheezing/shortnes s of breath. 18 g 2 01/24/2023 Active Problems Active Problems Problem Classification Problem Date Documented Da te Episodic/Chronic Anxiety disorders (20 sources) Mixed anxiety and depressive disorder; Translations: [Anxiety disorder, unspecified] Onset: 12-30-2020 12-30-2020 Chronic Asthma (20 sources) Mild intermittent asthma; Translations: [Mild intermittent asthma, uncomplicated] Onset: 03-23-2017 03-23-2017 Chronic Conditions associated with dizziness or vertigo (1 source) Dizziness; Translations: [Dizziness and giddiness] Episodic Malaise and fatigue (1 source) Fatigue; Translations: [Other fatigue] Episodic Mood disorders (1 source) Mood disorders; Translations: [Anxiety and depression] Onset: 12-30-2020 Other aftercare (1 source) Drug indicated; Translations: [Other roasterman (current) drug therapy] Episodic Other ear and sense organ disorders (1 source) Impacted cerumen of bilateral ears; Translations: [Impacted cerumen, bilateral] 12-28-2022 Episodic Other gastrointestinal disorders (2 sources) 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; 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 due to intolerance, not elsewhere classified] Chronic Other gastrointestinal disorders (3 sources) Abdominal bloating; Translations: [Abdominal distension (gaseous)] Episodic Other inflammatory condition of skin (1 source) Itching ; Translations: [Pruritus, unspecified] 12-20-2022 Episodic Other lower respiratory disease (1 source) Rib pain; Translations: [Pleurodynia] Episodic Other lower respiratory disease (1 source) Chest pain on breathing; Translations: [Chest pain on breathing] Episodic Other lower respiratory disease (1 source) Cough; Translations: [Acute cough] Episodic Other nutritional; endocrine; and metabolic disorders (1 source) Intolerance to lactose; Translations: [Lactose intolerance, unspecified] 10-07-2022 Chronic Other screening for suspected conditions (not mental disorders or infectious disease) (4 sources) Patient encounter status; Translations: [Encounter for screening for diabetes mellitus] Onset: 01-24-2023 Episodic Other upper respiratory infections (1 source) Viral sinusitis; Translations: [Chronic sinusitis, unspecified] 01-02-2023 Chronic Other upper respiratory infections (7 sources) Sore throat symptom; Translations: [Acute pharyngitis, unspecified] Episodic Otitis media and related conditions (1 source) Acute left otitis media; Translations: [Otitis media, unspecified, left ear] 12-28-2022 Episodic Residual codes; unclassified (1 source) Family history of diabetes mellitus; Translations: [Family history of diabetes mellitus] Episodic Unclassified (1 source) CONTACT WITH AND SUSPECTED EXPOSURE TO COVID-19; Translations: [CONTACT WITH AND SUSPECTED EXPOSURE TO COVID-19] Onset: 11-19-2020 Viral infection (1 source) COVID-19; Translations: [COVID-19] Onset: 11-19-2020 Past or Other Problems Problem Classification Problem Date Documented Date Episodic/Chronic Administrative/social admission (1 source) Problem related to primary support group, unspecified; Translations: [Relationship problems] Onset: 04-06-2022 Episodic Immunizations and screening for infectious disease (1 source) Encounter for screening for infections with a predominantly sexual mode of transmission; Translations: [Screening for STD (sexually transmitted disease)] Onset: 06-20-2022 Episodic Mycoses (2 sources) Mycosis; Translations: [Candidiasis, unspecified] Onset: 08-23-2022 Episodic Unclassified (1 source) CONTACT WITH AND SUSPECTED EXPOSURE TO COVID-19; Translations: [CONTACT WITH AND SUSPECTED EXPOSURE TO COVID-19] Onset: 11-19-2020 Results Test Name Value Interpretation Reference Range Facil ity Vital Signs Date Time Vital Sign Value Performing Clinician Faci lity 11-06-2023 17:32-0500 Body temperature 97.9 [degF] Adonay Johnny CRYSTAL MOUNTER.STONEMASON SUPERVISOR Work Phone: [facility] 01-02-2023 17:32-0500 Body weight 82.1 kg Adonay Turner CRYSTAL MOUNTER.STONEMASON SUPERVISOR Work Phone: [facility] 01-02-2023 17:32-0500 Diastolic blood pressure 72 mm[Hg] Adonay Turner CRYSTAL MOUNTER.STONEMASON SUPERVISOR Work Phone: [facility] 01-02-2023 17:32-0500 Heart rate 77 /min Adonay Turner CRYSTAL MOUNTER.STONEMASON SUPERVISOR Work Phone: [facility] 01-02-2023 17:32-0500 Respiratory rate 21 /min Adonay Turner CRYSTAL MOUNTER.STONEMASON SUPERVISOR Work Phone: [facility] 01-02-2023 17:32-0500 SaO2% (BldA) [Mass fraction] 98 % Adonay Clarkjohannanabelle CRYSTAL MOUNTER.STONEMASON SUPERVISOR Work Phone: [facility] 01-02-2023 17:32-0500 Systolic blood pressure 110 mm[Hg] Adonay Clarkjohannanabelle CRYSTAL MOUNTER.STONEMASON SUPERVISOR Work Phone: [facility] 12-28-2022 12:47-0400 Body temperature 97.81 [degF] Laura Ortega CRYSTAL MOUNTER.STONEMASON SUPERVISOR Work Phone: [facility] 12-28-2022 12:47-0400 Body weight 81.65 kg Laura Ortega CRYSTAL MOUNTER.STONEMASON SUPERVISOR Work Phone: [facility] 12-28-2022 12:47-0400 Diastolic blood pressure 80 mm[Hg] Laura Ortega CRYSTAL MOUNTER.STONEMASON SUPERVISOR Work Phone: [facility] 12-28-2022 12:47-0400 Heart rate 68 /min Laura Ortega CRYSTAL MOUNTER.STONEMASON SUPERVISOR Work Phone: [facility] 12-28-2022 12:47-0400 Respiratory rate 16 /min Laura Ortega CRYSTAL MOUNTER.STONEMASON SUPERVISOR Work Phone: [facility] 12-28-2022 12:47-0400 SaO2% (BldA) [Mass fraction] 99 % Laura Ortega CRYSTAL MOUNTER.STONEMASON SUPERVISOR Work Phone: [facility] 12-28-2022 12:47-0400 Systolic blood pressure 122 mm[Hg] Laura Ortega CRYSTAL MOUNTER.STONEMASON SUPERVISOR Work Phone: [facility] 12-20-2022 07:43-0400 Body temperature 98.29 [degF] Adonay Pendleanabelle CRYSTAL MOUNTER.STONEMASON SUPERVISOR Work Phone: [facility] 12-20-2022 07:43-0400 Body weight 81.19 kg Adonay Pendroel CRYSTAL MOUNTER.STONEMASON SUPERVISOR Work Phone: [facility] 12-20-2022 07:43-0400 Diastolic blood pressure 80 mm[Hg] Adonay Pendlebury CRYSTAL MOUNTER.STONEMASON SUPERVISOR Work Phone: [facility] 12-20-2022 07:43-0400 Heart rate 64 /min Adonay Pendlebury CRYSTAL MOUNTER.STONEMASON SUPERVISOR Work Phone: [facility] 12-20-2022 07:43-0400 Respiratory rate 16 /min Adonay Pendleanabelle CRYSTAL MOUNTER.STONEMASON SUPERVISOR Work Phone: [facility] 12-20-2022 07:43-0400 SaO2% (BldA) [Mass fraction] 100 % Adonay Pendleanabelle CRYSTAL MOUNTER.STONEMASON SUPERVISOR Work Phone: [facility] 12-20-2022 07:43-0400 Systolic blood pressure 122 mm[Hg] Adonay Pendlebury CRYSTAL MOUNTER.STONEMASON SUPERVISOR Work Phone: [facility] 10-30-2022 11:33-0400 Body temperature 98.4 [degF] Neelima Samuels CRYSTAL MOUNTER.STONEMASON SUPERVISOR Work Phone: [facility] 10-30-2022 11:33-0400 Body weight 79.47 kg Neelima Samuels CRYSTAL MOUNTER.STONEMASON SUPERVISOR Work Phone: [facility] 10-30-2022 11:33-0400 Diastolic blood pressure 79 mm[Hg] Neelima Samuels CRYSTAL MOUNTER.STONEMASON SUPERVISOR Work Phone: [facility] 10-30-2022 11:33-0400 Heart rate 71 /min Neelima Samuels CRYSTAL MOUNTER.STONEMASON SUPERVISOR Work Phone: [facility] 10-30-2022 11:33-0400 Respiratory rate 18 /min Neelima Samuels CRYSTAL MOUNTER.STONEMASON SUPERVISOR Work Phone: [facility] 10-30-2022 11:33-0400 SaO2% (BldA) [Mass fraction] 99 % Neelima Samuels CRYSTAL MOUNTER.STONEMASON SUPERVISOR Work Phone: [facility] 10-30-2022 11:33-0400 Systolic blood pressure 116 mm[Hg] Neelima Samuels CRYSTAL MOUNTER.STONEMASON SUPERVISOR Work Phone: [facility] 09-28-2022 10:39-0400 Body temperature 99.39 [degF] Krislyn Aberegg PA Work Phone: [facility] 09-28-2022 10:39-0400 Body weight 78.56 kg Krislyn Aberegg PA Work Phone: [facility] 09-28-2022 10:39-0400 Diastolic blood pressure 62 mm[Hg] Krislyn Aberegg PA Work Phone: [facility] 09-28-2022 10:39-0400 Heart rate 102 /min Krislyn Aberegg PA Work Phone: [facility] 09-28-2022 10:39-0400 Respiratory rate 15 /min Krislyn Aberegg PA Work Phone: [facility] 09-28-2022 10:39-0400 SaO2% (BldA) [Mass fraction] 98 % Krislyn Aberegg PA Work Phone: [facility] 09-28-2022 10:39-0400 Systolic blood pressure 128 mm[Hg] Krislyn Aberegg PA Work Phone: [facility] 08-23-2022 14:48-0400 Body weight 78.47 kg Yulia Bruce CRYSTAL MOUNTER.INDIVIDUAL PENSION CONSULTANT Work Phone: [facility] 08-23-2022 14:48-0400 Diastolic blood pressure 70 mm[Hg] Yulia Bruce CRYSTAL MOUNTER.INDIVIDUAL PENSION CONSULTANT Work Phone: [facility] 08-23-2022 14:48-0400 Heart rate 74 /min Yulia Bruce CRYSTAL MOUNTER.INDIVIDUAL PENSION CONSULTANT Work Phone: [facility] 08-23-2022 14:48-0400 Respiratory rate 16 /min Yulia Bruce CRYSTAL MOUNTER.INDIVIDUAL PENSION CONSULTANT Work Phone: [facility] 08-23-2022 14:48-0400 SaO2% (BldA) [Mass fraction] 99 % Yulia Bruce CRYSTAL MOUNTER.INDIVIDUAL PENSION CONSULTANT Work Phone: [facility] 08-23-2022 14:48-0400 Systolic blood pressure 108 mm[Hg] Yulia Bruce CRYSTAL MOUNTER.INDIVIDUAL PENSION CONSULTANT Work Phone: [facility] 06-20-2022 07:24-0400 Body weight 77.56 kg Richelle Older CRYSTAL MOUNTER.STONEMASON SUPERVISOR Work Phone: [facility] 06-20-2022 07:24-0400 Diastolic blood pressure 78 mm[Hg] Richelle Older CRYSTAL MOUNTER.STONEMASON SUPERVISOR Work Phone: [facility] 06-20-2022 07:24-0400 Heart rate 72 /min Richelle Older CRYSTAL MOUNTER.STONEMASON SUPERVISOR Work Phone: [facility] 06-20-2022 07:24-0400 Respiratory rate 16 /min Richelle Older CRYSTAL MOUNTER.STONEMASON SUPERVISOR Work Phone: [facility] 06-20-2022 07:24-0400 Systolic blood pressure 112 mm[Hg] Richelle Older CRYSTAL MOUNTER.STONEMASON SUPERVISOR Work Phone: [facility] 02-09-2022 16:56-0500 Body temperature 98.49 [degF] Kym Athy PA-C Work Phone: [facility] 02-09-2022 16:56-0500 Body weight 78.47 kg Kym Athy PA-C Work Phone: [facility] 02-09-2022 16:56-0500 Diastolic blood pressure 80 mm[Hg] Kymtrina Oliverosy PA-C Work Phone: [facility] 02-09-2022 16:56-0500 Heart rate 79 /min Kym Athy PA-C Work Phone: [facility] 02-09-2022 16:56-0500 Respiratory rate 18 /min Kym Athy PA-C Work Phone: [facility] 02-09-2022 16:56-0500 SaO2% (BldA) [Mass fraction] 99 % Kym Athy PA-C Work Phone: [facility] 02-09-2022 16:56-0500 Systolic blood pressure 120 mm[Hg] Kym Athy PA-C Work Phone: [facility] 12-23-2021 08:41-0400 Body temperature 98.29 [degF] Laura Ortega APRN.STONEMASON SUPERVISOR Work Phone: [facility] 12-23-2021 08:41-0400 Body weight 76.57 kg Laura Ortega APRN.STONEMASON SUPERVISOR Work Phone: [facility] 12-23-2021 08:41-0400 Diastolic blood pressure 78 mm[Hg] Laura Ortega APRN.STONEMASON SUPERVISOR Work Phone: [facility] 12-23-2021 08:41-0400 Heart rate 76 /min Laura Ortega APRN.STONEMASON SUPERVISOR Work Phone: [facility] 12-23-2021 08:41-0400 Respiratory rate 21 /min Laura Ortega APRN.STONEMASON SUPERVISOR Work Phone: [facility] 12-23-2021 08:41-0400 SaO2% (BldA) [Mass fraction] 97 % Laura Ortega APRN.STONEMASON SUPERVISOR Work Phone: [facility] 12-23-2021 08:41-0400 Systolic blood pressure 118 mm[Hg] Laura Ortega APRN.STONEMASON SUPERVISOR Work Phone: [facility] 12-20-2021 14:05-0400 Body temperature 97.9 [degF] Junior Liao MD Work Phone: [facility] 12-20-2021 14:05-0400 Body weight 76.66 kg Junior Liao MD Work Phone: [facility] 12-20-2021 14:05-0400 Diastolic blood pressure 78 mm[Hg] Junior Liao MD Work Phone: [facility] 12-20-2021 14:05-0400 Heart rate 67 /min Junior Liao MD Work Phone: [facility] 12-20-2021 14:05-0400 Respiratory rate 18 /min Junior Liao MD Work Phone: [facility] 12-20-2021 14:05-0400 SaO2% (BldA) [Mass fraction] 99 % Junior Liao MD Work Phone: [facility] 12-20-2021 14:05-0400 Systolic blood pressure 116 mm[Hg] Junior Liao MD Work Phone: [facility] 12-06-2021 15:07-0400 Body weight 76.66 kg Richelle Older CRYSTAL MOUNTER.STONEMASON SUPERVISOR Work Phone: [facility] 12-06-2021 15:07-0400 Diastolic blood pressure 74 mm[Hg] Richelle Older CRYSTAL MOUNTER.STONEMASON SUPERVISOR Work Phone: [facility] 12-06-2021 15:07-0400 Heart rate 60 /min Richelle Older CRYSTAL MOUNTER.STONEMASON SUPERVISOR Work Phone: [facility] 12-06-2021 15:07-0400 Respiratory rate 16 /min Richelle Older CRYSTAL MOUNTER.STONEMASON SUPERVISOR Work Phone: [facility] 12-06-2021 15:07-0400 Systolic blood pressure 126 mm[Hg] Richelle Older CRYSTAL MOUNTER.STONEMASON SUPERVISOR Work Phone: [facility] 09-21-2021 19:22-0400 Body weight 76.66 kg Augustin Perdomo MD Work Phone: [facility] 09-21-2021 19:22-0400 Diastolic blood pressure 72 mm[Hg] Augustin Perdomo MD Work Phone: [facility] 09-21-2021 19:22-0400 Heart rate 64 /min Augustin Perdomo MD Work Phone: [facility] 09-21-2021 19:22-0400 SaO2% (BldA) [Mass fraction] 97 % Augustin Perdomo MD Work Phone: [facility] 09-21-2021 19:22-0400 Systolic blood pressure 116 mm[Hg] Augustin Perdomo MD Work Phone: [facility] 08-17-2021 08:28-0400 Body temperature 97.3 [degF] Laura Ortega APRN.STONEMASON SUPERVISOR Work Phone: [facility] 08-17-2021 08:28-0400 Body weight 75.75 kg Laura Ortega APRN.STONEMASON SUPERVISOR Work Phone: [facility] 08-17-2021 08:28-0400 Diastolic blood pressure 60 mm[Hg] Laura Ortega APRN.STONEMASON SUPERVISOR Work Phone: [facility] 08-17-2021 08:28-0400 Heart rate 92 /min Laura Ortega APRN.STONEMASON SUPERVISOR Work Phone: [facility] 08-17-2021 08:28-0400 Respiratory rate 16 /min Laura Ortega APRN.STONEMASON SUPERVISOR Work Phone: [facility] 08-17-2021 08:28-0400 SaO2% (BldA) [Mass fraction] 99 % Laura Ortega APRN.STONEMASON SUPERVISOR Work Phone: [facility] 08-17-2021 08:28-0400 Systolic blood pressure 112 mm[Hg] Laura Ortega APRN.STONEMASON SUPERVISOR Work Phone: [facility] Encounters Encounter Date Encounter Type Care Provider Facility Start: 04-01-2023 Telephone encounter Augustin mtz MD Work Phone: [facility] [place] Procedures Date Procedure Procedure Detail Performing Clinician Start: 12-28-2022 STREP A MOLECULAR (POC) Kym Melendez PA-C Work Phone: Start: 10-30-2022 STREP A MOLECULAR (POC) Laura Ortega APRN.STONEMASON SUPERVISOR Work Phone: Start: 09-28-2022 STREP A MOLECULAR (POC) Anatoliy Hale APRN.STONEMASON SUPERVISOR Work Phone: Start: 12-20-2021 STREP A MOLECULAR (POC) Junior Liao MD Work Phone: Start: 08-17-2021 STREP A MOLECULAR (POC) Laura Ortega APRN.STONEMASON SUPERVISOR Work Phone: Start: 04-12-2021 Adult depression screening assessment Augustin Perdomo MD Work Phone: Plan of Treatment Date Care Activity Detail Author Start: 02-16-2024 GC (Gonorrhea) Scree yesenia (18-24) GC (Gonorrhea) Screening (18-24) [facility] Start: 02-16-2024 Screening for Chlamy yaya trachomatis Chlamydia Screening () [facility] Start: 01-27-2024 PAP TESTING PAP TESTING [facility] Start: 01-27-2024 Screening for malign ant neoplasm of cervix Pap Testing [facility] Start: 01-25-2024 Annual PCP Team Catcher Helper freddie Disease Visit Annual PCP Team Chronic Disease Visit [facility] Start: 08-13-2023 CHLAMYDIA SCREENING (18-24) CHLAMYDIA SCREENING (18-24) [facility] Start: 08-13-2023 GC (GONORRHEA) SCREE YESENIA (18-24) GC (GONORRHEA) SCREENING (18-) [facility] Start: 06-21-2023 ANNUAL PCP TEAM LINE OUT MAN FREDDIE DISEASE VISIT ANNUAL PCP TEAM CHRONIC DISEASE VISIT [facility] Start: 06-21-2023 COVID-19 VACCINE (#1) COVID-19 VACCI NE (#1) [facility] Immunizations Immunization Date Immunization Notes Care Provider Fa cility 12-11-2019 influenza, seasonal, injectable Augustin Perdomo MD Work Phone: [facility] Work Phone: 12-11-2019 influenza virus vacc ine, unspecified formulation Augustin Perdomo MD Work Phone: [facility] 12-02-2019 Influenza, injectabl e, Madin Kayli Canine Kidney, quadrivalent with preservative Augustin Perdomo MD Work Phone: [facility] 12-02-2019 influenza virus vacc ine, unspecified formulation Adonay Turner APRN.CNP Work Phone: [facility] 01-28-2016 meningococcal polysaccharide (groups A, C, Y and W-135) diphtheria toxoid conjugate vaccine (MCV4P) Augustin Perdomo MD Work Phone: [facility] Work Phone: 08-24-2012 Meningococcal, MCV4, unspecified conjugate formulation(groups A, C, Y and W-135) Augustin Perdomo MD Work Phone: [facility] Work Phone: 08-24-2012 tetanus toxoid, redu leslie diphtheria toxoid, and acellular pertussis vaccine, adsorbed Augustin Perdomo MD Work Phone: [facility] Work Phone: 08-24-2012 varicella virus vaccine Augustin Perdomo MD Work Phone: [facility] Work Phone: 01-19-2005 diphtheria, tetanus toxoids and acellular pertussis vaccine Augustin Perdomo MD Work Phone: [facility] Work Phone: 01-19-2005 influenza virus vacc ine, live, attenuated, for intranasal use Augustin Perdomo MD Work Phone: [facility] Work Phone: 01-19-2005 measles, mumps and rubella virus vaccine Augustin Perdomo MD Work Phone: [facility] Work Phone: 01-19-2005 poliovirus vaccine, inactivated Augustin Perdomo MD Work Phone: [facility] Work Phone: 06-20-2001 varicella virus vaccine Augustin Perdoom MD Work Phone: [facility] Work Phone: 03-27-2001 diphtheria, tetanus toxoids and acellular pertussis vaccine Augustin Perdomo MD Work Phone: [facility] Work Phone: 03-27-2001 haemophilus influenz ae type b vaccine, HbOC conjugate Augustin Perdomo MD Work Phone: [facility] Work Phone: 12-19-2000 measles, mumps and rubella virus vaccine Augustin Perdomo MD Work Phone: [facility] Work Phone: 09-15-2000 haemophilus influenz ae type b vaccine, HbOC conjugate Augustin Perdomo MD Work Phone: [facility] Work Phone: 09-15-2000 poliovirus vaccine, inactivated Augustin Perdomo MD Work Phone: [facility] Work Phone: 06-12-2000 diphtheria, tetanus toxoids and acellular pertussis vaccine Augustin Perdomo MD Work Phone: [facility] Work Phone: 06-12-2000 hepatitis B vaccine, pediatric or pediatric/adolescent dosage Augustin Perdomo MD Work Phone: [facility] Work Phone: 06-12-2000 pneumococcal conjuga te vaccine, 7 valent Augustin Perdomo MD Work Phone: [facility] Work Phone: 04-14-2000 diphtheria, tetanus toxoids and acellular pertussis vaccine Augustin Perdomo MD Work Phone: [facility] Work Phone: 04-14-2000 haemophilus influenz ae type b vaccine, HbOC conjugate Augustin Perdomo MD Work Phone: [facility] Work Phone: 04-14-2000 pneumococcal conjuga te vaccine, 7 valent Augustin Perdomo MD Work Phone: [facility] Work Phone: 04-14-2000 poliovirus vaccine, inactivated Augustin Perdomo MD Work Phone: [facility] Work Phone: 02-14-2000 diphtheria, tetanus toxoids and acellular pertussis vaccine Augustin Perdomo MD Work Phone: [facility] Work Phone: 02-14-2000 haemophilus influenz ae type b vaccine, HbOC conjugate Augustin Perdomo MD Work Phone: [facility] Work Phone: 02-14-2000 pneumococcal conjuga te vaccine, 7 valent Augustin Perdomo MD Work Phone: [facility] Work Phone: 02-14-2000 poliovirus vaccine, inactivated Augustin Perdomo MD Work Phone: [facility] Work Phone: 01-17-2000 hepatitis B vaccine, pediatric or pediatric/adolescent dosage Augustin Perdomo MD Work Phone: [facility] Work Phone: 1999 hepatitis B vaccine, pediatric or pediatric/adolescent dosage Augustin Perdomo MD Work Phone: [facility] Work Phone: Payers Date Payer Category Payer Private Health Insurance [employer] A ETNA CHOICE POS II [id number] 2021-Present [phone] [address] [place] [address] POS [id number] 2021 Private Health Insurance [id number] 2021 Private Health Insurance [id number] 2021 Unknown [employer] PPO [id number] 2021-Present [phone] [address] [place] [address] PPO [id number] 1999 Unknown 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 maker of alcohol (finding) [facility] Start: 01-26-2021 Tobacco Comment Nicotine [facility] Start: 2000 Sex Assigned At Female [facility] Start: 07-30-2021 End: 08-09-2021 Exposure to SARS-CoV-2 (event) Unable to assess [facility] Work Phone: Start: 04-12-2021 End: 12-20-2021 Tobacco use and exposure Smokeless tobacco non-user [facility] Work Phone: Start: 06-20-2022 Alcohol Comment rarely every o ther weekend [facility] Start: 08-23-2022 End: 09-28-2022 History of Social function [facility] Start: 08-23-2022 End: 09-28-2022 Tobacco use panel [facility] National Score (1-10 0), lower number is lower risk 41 [facility] Start: 08-03-2021 Gender identity Identifies as female gender (finding) [facility] Start: 08-03-2021 Sexual orientation Heterosexual (quang mcdowell) [facility] Clinical Notes 03-16-2021 to 04-01-2023 Telephone Encounter - Antonio Giron MD - 04/01/2023 10:37 PM ESTTelephone Encounter - Alejandra Christy RN - 04/01/2023 8:58 AM Adonay Sanchez APRN.STONEMASON SUPERVISOR - 01/02/2023 5:34 PM EST Note Date & Type Note Facility 04-01-2023 Miscellaneous Notes Patient's request for medication is as follows Requested Prescriptions Signed Prescriptions Disp Refills fluconazole (DIFLUCAN) 150 mg tablet 1 tablet 0 Sig: Take 1 tablet by mouth one time only for 1 dose. Authorizing Provider: ANTONIO GIRON MD Patient calls to request Diflucan for vaginal itching. Denies any discharge, pain, or rash. Recommended patient be seen for proper evaluation. Patient has history of yeast infection and reports that she is going out of town today and doesn't have time to come in. Asking if on-call provider would send in a prescription for Diflucan. Pended prescription as previously ordered 02/15/2023. Alejandra Christy RN documented in this encounter [facility] 02-18-2023 Miscellaneous Notes Reason for call: positive COVID-19 Outcome: will go to [place] [facility] Reason for Disposition SEVERE or constant chest pain or pressure (Exception: Mild central chest pain, present only when coughing.) Protocols used: COVID-19 - Diagnosed or [id number] Patient tested positive for COVID-19. She is experiencing severe pain in her ears and throat, along with constant pain in the chest. Unable to swallow well enough to take ibuprofen. She is in too much pain to talk on the phone, mom is calling [facility] for her. documented in this encounter [facility] 02-15-2023 Miscellaneous Notes Patient seen in ER today Treated for yeast infection Sent [employer] message documented in this encounter [facility] 02-15-2023 Note HNO ID: [id number] Author: Andra Drake PA Service: ? Author Type: Physician Straw Boss Type: Progress Notes Filed: 02/15/2023 2:56 PM Note Text: This note was created using 2-Observe. Subjective Alexandra Cox is a 22 year old female. HPI 22-year-old female presents for dysuria, vaginal itching. Patient was here in 02/13 for dysuria. She was diagnosed with UTI and started on Macrobid. Urine culture came back for strep. We are still awaiting on the susceptibility of this. Patient states that she has been having vaginal itching now since starting the antibiotic. She has a little bit of white vaginal discharge. She does not really have a concern for STD, but would like to be tested. She denies any concern for , has an IUD. No pelvic pain. No back pain. No fevers. No vomiting. PAST MEDICAL HISTORY Diagnosis Date Acne PAST SURGICAL HISTORY Procedure Laterality Date PAST SURGICAL HISTORY OF 01/07/2020 Breast reduction surgery UNSPECIFIED ORAL SURGERY PROCEDURE, BY REPORT [facility] ALLERGIES Clindamycin and Duricef [Cefadroxil] MEDICATIONS nitrofurantoin monohydrate and macrocrystal (MACROBID) 100 mg capsule Take 1 capsule by mouth two times a day for 5 days. albuterol HFA (VENTOLIN HFA) 90 mcg/actuation inhaler Inhale 2 Puffs as instructed every 4 hours as needed for wheezing/shortness of breath. escitalopram oxalate (LEXAPRO) 10 mg tablet Take 1 tablet by mouth once daily. montelukast (SINGULAIR) 10 mg tablet TAKE 1 TABLET BY MOUTH EVERYDAY AT BEDTIME levonorgestrel (TIRSO) 14 mcg/24 hrs (3 yrs) 13.5 mg IUD IUD levonorgestrel 14 mcg/24 hrs (3 yrs) 13.5 mg intrauterine device Active 1 INSERT INTRA-UTER ONCE 1 March 26, 2021 2:36pm loratadine (CLARITIN) 10 mg tablet Take 1 tablet by mouth once daily as needed. FOR ALLERGY SYMPTOMS multivitamins(CHEWABLE MULTI VITAMIN TAB) Take one(1) tablet daily. fluconazole (DIFLUCAN) 150 mg tablet Take 1 tablet by mouth one time only for 1 dose. Repeat in 3 days as needed. FAMILY HISTORY Problem Relation Age of Onset Hypertension Mother Blood Disease Father increased platelets. Hypertension Father No Known Problems Maternal Grandmother Asthma Paternal Grandmother Hypertension Other Breast Cancer Other maternal side Social History Tobacco Use Smoking status: Never Smokeless tobacco: Never Vaping Use Vaping Use: Never used Substance Use Topics Alcohol use: Yes Comment: rarely every other weekend Drug use: No Review of Systems Constitutional: Negative for chills and fever. HENT: Negative for congestion, ear pain and sore throat. Respiratory: Negative for cough and shortness of breath. Cardiovascular: Negative for chest pain. Gastrointestinal: Negative for diarrhea and vomiting. Genitourinary: Positive for dysuria, frequency and vaginal discharge. Negative for decreased urine volume, difficulty urinating, flank pain, urgency, vaginal bleeding and vaginal pain. Objective BP 128/78 Pulse 60 Temp 36.9 ?C (98.4 ?F) (Tympanic) Resp 16 Wt 82.3 kg (181 lb 6.4 oz) LMP 04/23/2021 (Approximate) SpO2 100% BMI 28.20 kg/m? Physical Exam Vitals and nursing note reviewed. Constitutional: General: She is not in acute distress. Appearance: Normal appearance. She is not toxic-appearing. HENT: Nose: Nose normal. Mouth/Throat: Mouth: Mucous membranes are moist. Eyes: Conjunctiva/sclera: Conjunctivae normal. Cardiovascular: Rate and Rhythm: Normal rate and regular rhythm. Pulmonary: Effort: Pulmonary effort is normal. Breath sounds: Normal breath sounds. Abdominal: General: Abdomen is flat. Palpations: Abdomen is soft. Tenderness: There is no abdominal tenderness. There is no right CVA tenderness, left CVA tenderness, guarding or rebound. Genitourinary: Comments: Deferred by patient. Patient wants to self swab. Skin: General: Skin is warm and dry. Neurological: Mental Status: She is alert. Assessment and Plan ASSESSMENT/PLAN: 1. Burning with urination - ICD9: 788.1, ICD10: R30.0 (primary diagnosis) acute - UA positive for clifton esterase and hematuria - Send urine for culture -Patient currently on Macrobid. Urine culture revealed 10,000-50,000 strep. She does have allergy to a cephalosporin. We will wait on the susceptibility and change antibiotic if needed. She is still having symptoms of UTI and has trace leuk esterase on UA today. - Patient education for prevention given - UA DIP, URINE (POC) - URINE CULTURE 2. Vaginal itching - ICD9: 698.1, ICD10: N89.8 - PEGGY/TRICHOMONAS NAAT - BACTERIAL VAGINOSIS NAAT - GONORRHEA/CHLAMYDIA NAAT - Rx for Diflucan given due to high suspicion for yeast infection with recent antibiotic use. Advised to take 1 Diflucan now and 1 after finishing antibiotic. -Treat if any other results come back positive. Diagnosis and treatment plan were discussed and questions were answered to the (more content not included)... [facility] 02-13-2023 Note HNO ID: [id number] Author: Radha Younger APRN.STONEMASON SUPERVISOR Service: ? Author Type: Nurse Practitioner Type: Progress Notes Filed: 02/13/2023 5:09 PM Note Text: This note was created using Voxariter. Subjective Alexandra Cox is a 22 year old female. Patient presents for urinary burning and pressure x 4 days. Patient denies fever. Objective BP 124/75 Pulse 68 Temp 36.3 ?C (97.3 ?F) Resp 18 Wt 81.6 kg (180 lb) LMP 04/23/2021 (Approximate) SpO2 99% BMI 27.98 kg/m? Physical Exam PHYSICAL EXAMINATION: General appearance: Well appearing, alert, in no acute distress, well-hydrated, well nourished. Abdomen: Normal abdominal exam, Abdomen soft, non-tender. Bowel sounds normal. No masses, organomegaly Assessment and Plan ASSESSMENT/PLAN: 1. Burning with urination - ICD9: 788.1, ICD10: R30.0 acute - UA positive for clifton esterase and hematuria - Send urine for culture - Begin treatment with Macrobid 100 mg BID for 5 days - Patient education for prevention given - UA DIP, URINE (POC) - URINE CULTURE - NITROFURANTOIN MONOHYDRATE AND MACROCRYSTAL 100 MG ORAL CAP Radha Younger APRN.STONEMASON SUPERVISOR [facility] 01-24-2023 Note HNO ID: [id number] Author: Kandice Marsh LPN Service: ? Author Type: ? Type: Progress Notes Filed: 01/24/2023 8:27 AM Note Text: Waist circumference [address] [facility] 01-24-2023 Note HNO ID: [id number] Author: Yohana Swift APRN.CNP Service: ? Author Type: Nurse Practitioner Type: Progress Notes Filed: 01/24/2023 8:27 AM Note Text: CHIEF COMPLAINT: Patient presents with: Physical: Wellness form needs completed HISTORY: Alexandra Cox is a 22 year old female who presents 01/24/2023 for her Yearly Physical Exam. They are here today for a wellness exam. Generally feels well and does not have complaints. Is able to complete ADL's with independence. Medical history of asthma, anxiety and depression. Asthma is doing well, worse when sick. Using albuterol when sick but otherwise not needing this. Other Providers: Dr. Romero for credit review officer Depression Screen Q1: Over the past two weeks, have you felt down, depressed or hopeless? No Q2: Over the past two weeks, have you felt little interest or pleasure in doing things? 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 Family Hx Breast CA: grandma, later in life Family Hx Colon CA: no Past Medical History: PAST MEDICAL HISTORY Diagnosis Date Acne Family Medical History: FAMILY HISTORY Problem Relation Age of Onset Hypertension Mother Blood Disease Father increased platelets. Hypertension Father No Known Problems Maternal Grandmother Asthma Paternal Grandmother Hypertension Other Breast Cancer Other maternal side Social History: Social History Tobacco Use Smoking status: Never Smokeless tobacco: Never Vaping Use Vaping Use: Never used Substance Use Topics Alcohol use: Yes Comment: rarely every other weekend Drug use: No Allergies: ALLERGIES Allergen Reactions Clindamycin Rash ?might have been the morphine since was given at the same time? Duricef [Cefadroxil] Hives Medications: Current Outpatient Medications Medication Sig escitalopram oxalate (LEXAPRO) 10 mg tablet Take 1 tablet by mouth once daily. montelukast (SINGULAIR) 10 mg tablet TAKE 1 TABLET BY MOUTH EVERYDAY AT BEDTIME levonorgestrel (TIRSO) 14 mcg/24 hrs (3 yrs) 13.5 mg IUD IUD levonorgestrel 14 mcg/24 hrs (3 yrs) 13.5 mg intrauterine device Active 1 INSERT INTRA-UTER ONCE 1 March 26, 2021 2:36pm loratadine (CLARITIN) 10 mg tablet Take 1 tablet by mouth once daily as needed. FOR ALLERGY SYMPTOMS multivitamins(CHEWABLE MULTI VITAMIN TAB) Take one(1) tablet daily. albuterol HFA (VENTOLIN HFA) 90 mcg/actuation inhaler Inhale 2 Puffs as instructed every 4 hours as needed for wheezing/shortness of breath. No current facility-administered medications for this visit. Chronic Problem List: ACTIVE PROBLEM LIST Anxiety and Depression - 12/30/2020 Mild Intermittent Asthma, Uncomplicated - 03/23/2017 Review of Systems Review of Systems Constitutional: Negative. Respiratory: Negative. Cardiovascular: Negative. OBJECTIVE BP 100/64 Pulse 55 Ht 5' 7.25 (1.71m) Wt 177 lb (80.3kg) SpO2 99% LMP 04/23/2021 BMI 27.52 kg/(m2). Physical Exam Vitals and nursing note reviewed. Constitutional: General: She is awake. She is not in acute distress. Appearance: Normal appearance. She is well-developed and well-groomed. She is not ill-appearing, toxic-appearing or diaphoretic. HENT: Head: Normocephalic. Right Ear: External ear normal. Left Ear: External ear normal. Nose: Nose normal. Eyes: General: Vision grossly intact. Conjunctiva/sclera: Conjunctivae normal. Pupils: Pupils are equal, round, and reactive to light. Neck: Vascular: No JVD. Trachea: Trachea normal. Cardiovascular: Rate and Rhythm: Normal rate and regular rhythm. Pulses: Normal pulses. Heart sounds: Normal heart sounds. No murmur heard. Pulmonary: Effort: Pulmonary effort is normal. No accessory muscle usage, prolonged expiration or respiratory distress. Breath sounds: Normal breath sounds. Musculoskeletal: Cervical back: Neck supple. Skin: General: Skin is warm and dry. Capillary Refill: Capillary refill takes less than 2 seconds. Neurological: General: No focal deficit present. Mental Status: She is alert and oriented to person, place, and time. Mental status is at baseline. Psychiatric: Attention and Perception: Attention and perception normal. Mood and Affect: Mood and affect normal. Speech: Speech normal. Behavior: Behavior normal. Behavior is cooperative. Thought Content: Thought content normal. Cognition and Memory: Cognition and memory normal. Judgment: Judgment normal. ASSESSMENT/PLAN: 1. Wellness examination - ICD9: V70.0, ICD10: Z00.00 (primary diagnosis) - Counseled on healthy diet and regular exercise - Calcium intake with supplements or by diet of 1000 mg/day for under 50, 4606-8012 mg/day for 50+ - De (more content not included)... [facility] 01-23-2023 Miscellaneous Notes TC to patient who is agreeable to schedule with PCP team. Now re-scheduled with for annual physical. Nothing further at this time. REJI Eckert Is she able to see internal med provider for this? If no opening please change to 40 minutes. Inez Avelar APRN.CASEY TC to patient who states she is needing to be seen for an annual physical and to have a paper filled out for her work insurance as well as labs to be ordered. Explained to patient that is something she would need to be seen by PCP or team for and she states she has had this completed in the past with other providers because PCP is hard to get into. Patient requesting call back on whether or not she needs to reschedule. REJI Eckert Ca we find out what this patient is wanting to be seen for? It says primary care. She sees internal medication so I am not sure why she scheduled with me. Inez Avelar APRN.CASEY documented in this encounter [facility] 01-02-2023 Note HNO ID: [id number] Author: Adonay Turner APRN.CNP Service: ? Author Type: Nurse Practitioner Type: Progress Notes Filed: 01/02/2023 5:48 PM Note Text: Subjective HPI Nontoxic-appearing female presents urgent care chief complaint possible sinus infection. Duration of symptoms 2 days. Associated symptoms sinus pressure and drainage. Was seen here 5 days ago diagnosed with otitis media. Placed on Omnicef. Has taken medication as prescribed. Presents today for evaluation. States sinus pressure has worsened since yesterday. Denies any OTC medications for this complaint. No sinus surgeries in the past. Denies any fever body aches chills productive cough chest pain shortness of breath pleuritic pain hemoptysis nausea vomiting abdominal pain change in bowel or bladder habits. Past medical history prescription medication use and allergies reviewed. .Patient presents with: Sinus Problem: Possible sinus infection, teeth pain, pressure in head, drainage, cough x 5 days PAST MEDICAL HISTORY Diagnosis Date Acne PAST SURGICAL HISTORY Procedure Laterality Date PAST SURGICAL HISTORY OF 01/07/2020 Breast reduction surgery UNSPECIFIED ORAL SURGERY PROCEDURE, BY REPORT [facility] ALLERGIES Clindamycin and Duricef [Cefadroxil] MEDICATIONS cefdinir (OMNICEF) 300 mg capsule Take 1 capsule by mouth two times a day for 7 days. escitalopram oxalate (LEXAPRO) 10 mg tablet Take 1 tablet by mouth once daily. montelukast (SINGULAIR) 10 mg tablet TAKE 1 TABLET BY MOUTH EVERYDAY AT BEDTIME albuterol HFA (VENTOLIN HFA) 90 mcg/actuation inhaler Inhale 2 Puffs as instructed every 4 hours as needed for wheezing/shortness of breath. levonorgestrel (TIRSO) 14 mcg/24 hrs (3 yrs) 13.5 mg IUD IUD levonorgestrel 14 mcg/24 hrs (3 yrs) 13.5 mg intrauterine device Active 1 INSERT INTRA-UTER ONCE March 26, 2021 2:36pm loratadine (CLARITIN) 10 mg tablet Take 1 tablet by mouth once daily as needed. FOR ALLERGY SYMPTOMS multivitamins(CHEWABLE MULTI VITAMIN TAB) Take one(1) tablet daily. FAMILY HISTORY Problem Relation Age of Onset Hypertension Mother Blood Disease Father increased platelets. Hypertension Father No Known Problems Maternal Grandmother Asthma Paternal Grandmother Hypertension Other Breast Cancer Other maternal side Social History Tobacco Use Smoking status: Never Smokeless tobacco: Never Vaping Use Vaping Use: Never used Substance Use Topics Alcohol use: Yes Comment: rarely every other weekend Drug use: No BP 110/72 Pulse 77 Temp 36.6 ?C (97.9 ?F) Resp 21 Wt 82.1 kg (181 lb) LMP 04/23/2021 (Approximate) SpO2 98% BMI 28.58 kg/m? Review of Systems Constitutional: Negative for chills, fever and malaise/fatigue. HENT: Positive for congestion and sinus pain. Negative for ear discharge, ear pain and sore throat. Eyes: Negative for blurred vision, pain, discharge and redness. Respiratory: Negative for cough, hemoptysis, sputum production, shortness of breath, wheezing and stridor. Cardiovascular: Negative for chest pain. Gastrointestinal: Negative for abdominal pain, diarrhea, nausea and vomiting. Musculoskeletal: Negative for myalgias. Skin: Negative for itching and rash. Neurological: Negative for dizziness and headaches. Objective Physical Exam Constitutional: General: She is not in acute distress. Appearance: She is not diaphoretic. HENT: Head: Normocephalic. Jaw: No trismus, tenderness, swelling or pain on movement. Right Ear: Tympanic membrane, ear canal and external ear normal. Left Ear: Tympanic membrane, ear canal and external ear normal. Nose: Congestion present. Right Sinus: Maxillary sinus tenderness present. Left Sinus: Maxillary sinus tenderness present. Mouth/Throat: Mouth: Mucous membranes are moist. Pharynx: Oropharynx is clear. Uvula midline. No pharyngeal swelling, oropharyngeal exudate, posterior oropharyngeal erythema or uvula swelling. Eyes: Conjunctiva/sclera: Conjunctivae normal. Pupils: Pupils are equal, round, and reactive to light. Cardiovascular: Rate and Rhythm: Normal rate and regular rhythm. Heart sounds: Normal heart sounds. Pulmonary: Effort: Pulmonary effort is normal. No tachypnea, accessory muscle usage or respiratory distress. Breath sounds: Normal breath sounds. No stridor. No wheezing, rhonchi or rales. Abdominal: General: There is no distension. Palpations: Abdomen is soft. Tenderness: There is no abdominal tenderness. There is no guarding or rebound. Musculoskeletal: Cervical back: Normal range of motion and neck supple. No edema, erythema, rigidity or tenderness. No pain with movement. Normal range of motion. Lymphadenopathy: Cervical: No cervical adenopathy. Skin: General: Skin is warm and dry. Neurological: Mental Status: She is alert and oriented to person, place, and time. ASSESSMENT/PLAN: 1. Viral sinusitis - ICD9: 473.9, 07 (more content not included)... [facility] 01-02-2023 History of Presen t illness Narrative Subjective HPI Nontoxic-appearing female presents urgent care chief complaint possible sinus infection. Duration of symptoms 2 days. Associated symptoms sinus pressure and drainage. Was seen here 5 days ago diagnosed with otitis media. Placed on Omnicef. Has taken medication as prescribed. Presents today for evaluation. States sinus pressure has worsened since yesterday. Denies any OTC medications for this complaint. No sinus surgeries in the past. Denies any fever body aches chills productive cough chest pain shortness of breath pleuritic pain hemoptysis nausea vomiting abdominal pain change in bowel or bladder habits. Past medical history prescription medication use and allergies reviewed. .Patient presents with: Sinus Problem: Possible sinus infection, teeth pain, pressure in head, drainage, cough x 5 days PAST MEDICAL HISTORY Diagnosis Date Acne PAST SURGICAL HISTORY Procedure Laterality Date PAST SURGICAL HISTORY OF 01/07/2020 Breast reduction surgery UNSPECIFIED ORAL SURGERY PROCEDURE, BY REPORT [facility] ALLERGIES Clindamycin and Duricef [Cefadroxil] MEDICATIONS cefdinir (OMNICEF) 300 mg capsule Take 1 capsule by mouth two times a day for 7 days. escitalopram oxalate (LEXAPRO) 10 mg tablet Take 1 tablet by mouth once daily. montelukast (SINGULAIR) 10 mg tablet TAKE 1 TABLET BY MOUTH EVERYDAY AT BEDTIME albuterol HFA (VENTOLIN HFA) 90 mcg/actuation inhaler Inhale 2 Puffs as instructed every 4 hours as needed for wheezing/shortness of breath. levonorgestrel (TIRSO) 14 mcg/24 hrs (3 yrs) 13.5 mg IUD IUD levonorgestrel 14 mcg/24 hrs (3 yrs) 13.5 mg intrauterine device Active 1 INSERT INTRA-UTER ONCE 1 March 26, 2021 2:36pm loratadine (CLARITIN) 10 mg tablet Take 1 tablet by mouth once daily as needed. FOR ALLERGY SYMPTOMS multivitamins(CHEWABLE MULTI VITAMIN TAB) Take one(1) tablet daily. FAMILY HISTORY Problem Relation Age of Onset Hypertension Mother Blood Disease Father increased platelets. Hypertension Father No Known Problems Maternal Grandmother Asthma Paternal Grandmother Hypertension Other Breast Cancer Other maternal side Social History Tobacco Use Smoking status: Never Smokeless tobacco: Never Vaping Use Vaping Use: Never used Substance Use Topics Alcohol use: Yes Comment: rarely every other weekend Drug use: No BP 110/72 Pulse 77 Temp 36.6 C (97.9 F) Resp 21 Wt 82.1 kg (181 lb) LMP 04/23/2021 (Approximate) SpO2 98% BMI 28.58 kg/m Review of Systems Constitutional: Negative for chills, fever and malaise/fatigue. HENT: Positive for congestion and sinus pain. Negative for ear discharge, ear pain and sore throat. Eyes: Negative for blurred vision, pain, discharge and redness. Respiratory: Negative for cough, hemoptysis, sputum production, shortness of breath, wheezing and stridor. Cardiovascular: Negative for chest pain. Gastrointestinal: Negative for abdominal pain, diarrhea, nausea and vomiting. Musculoskeletal: Negative for myalgias. Skin: Negative for itching and rash. Neurological: Negative for dizziness and headaches. Objective Physical Exam Constitutional: General: She is not in acute distress. Appearance: She is not diaphoretic. HENT: Head: Normocephalic. Jaw: No trismus, tenderness, swelling or pain on movement. Right Ear: Tympanic membrane, ear canal and external ear normal. Left Ear: Tympanic membrane, ear canal and external ear normal. Nose: Congestion present. Right Sinus: Maxillary sinus tenderness present. Left Sinus: Maxillary sinus tenderness present. Mouth/Throat: Mouth: Mucous membranes are moist. Pharynx: Oropharynx is clear. Uvula midline. No pharyngeal swelling, oropharyngeal exudate, posterior oropharyngeal erythema or uvula swelling. Eyes: Conjunctiva/sclera: Conjunctivae normal. Pupils: Pupils are equal, round, and reactive to light. Cardiovascular: Rate and Rhythm: Normal rate and regular rhythm. Heart sounds: Normal heart sounds. Pulmonary: Effort: Pulmonary effort is normal. No tachypnea, accessory muscle usage or respiratory distress. Breath sounds: Normal breath sounds. No stridor. No wheezing, rhonchi or rales. Abdominal: General: There is no distension. Palpations: Abdomen is soft. Tenderness: There is no abdominal tenderness. There is no guarding or rebound. Musculoskeletal: Cervical back: Normal range of motion and neck supple. No edema, erythema, rigidity or tenderness. No pain with movement. Normal range of motion. Lymphadenopathy: Cervical: No cervical adenopathy. Skin: General: Skin is warm and dry. Neurological: Mental Status: She is alert and oriented to person, place, and time. ASSESSMENT/PLAN: 1. Viral sinusitis - ICD9: 473.9, 079.99, ICD10: J32.9, B97.89 Diagnosed with viral sinusitis. Is currently on Omnicef. We will treat symptomatically at this point. Patient was educated on supportive therapies. Patient will follow up with primary care provider as needed. Patient was instructed to immediately proceed to emergency room for any new, worsening, or symptoms lasting longer than anticipated. The patient's clinical presentation is otherwise unremarkable at this time. Based on exam and clinical finding, the patient is stable for discharge. Plan of care was discussed with patient. Patient verbalizes understanding and agrees to plan of care. This note was generated using WisdomTree software. It may contain errors in wording, punctuation, or spelling. Adonay Turner APRN.CASEY documented in this encounter [facility] 12-28-2022 Note HNO ID: [id number] Author: Laura Ortega APRN.CASEY Service: ? Author Type: Nurse Practitioner Type: Progress Notes Filed: 12/28/2022 1:31 PM Note Text: CC: Patient presents with: Sore Throat: right ear pain and fatigue x 1 day HPI: Alexandra Cox is a 22 year old female who presents to the office with complaint of sore throat and ear symptoms for the past day. Symptoms are staying the same. Associated symptoms includes fatigue. Denies nausea, vomiting , and diarrhea. Treatments tried include nothing so far. with no relief of symptoms. Sick contacts: unknown. History of asthma, frequent episodes of bronchitis, chronic bronchitis, bronchiectasis or COPD: Yes asthma Smoker: No Seasonal/environmental allergies: No The ROS is otherwise negative. The patient's pmh, medications, allergies, and past visits are reviewed. PHYSICAL EXAM: BP 122/80 Pulse 68 Temp 36.6 ?C (97.8 ?F) Resp 16 Wt 81.6 kg (180 lb) LMP 04/23/2021 (Approximate) SpO2 99% BMI 28.42 kg/m? General appearance: alert, cooperative, pleasant, in no acute distress Head: Normocephalic Eyes: EOM's intact, conjunctiva pink and moist, no icterus, sclera white, non-injected Ears: Right ear: External ear/canal- cerumen impaction,. Left ear: External ear/canal- cerumen impaction, Oropharynx:moderate erythema, without exudates present Heart: Negative. RRR without obvious murmur, gallop, or rubs. No ectopy. Lungs: clear to auscultation, without rales or wheeze, good air exchange PAST MEDICAL HISTORY Diagnosis Date Acne PAST SURGICAL HISTORY Procedure Laterality Date PAST SURGICAL HISTORY OF 01/07/2020 Breast reduction surgery UNSPECIFIED ORAL SURGERY PROCEDURE, BY REPORT [facility] ALLERGIES Clindamycin and Duricef [Cefadroxil] MEDICATIONS escitalopram oxalate (LEXAPRO) 10 mg tablet Take 1 tablet by mouth once daily. montelukast (SINGULAIR) 10 mg tablet TAKE 1 TABLET BY MOUTH EVERYDAY AT BEDTIME albuterol HFA (VENTOLIN HFA) 90 mcg/actuation inhaler Inhale 2 Puffs as instructed every 4 hours as needed for wheezing/shortness of breath. levonorgestrel (TIRSO) 14 mcg/24 hrs (3 yrs) 13.5 mg IUD IUD levonorgestrel 14 mcg/24 hrs (3 yrs) 13.5 mg intrauterine device Active 1 INSERT INTRA-UTER ONCE 1 March 26, 2021 2:36pm loratadine (CLARITIN) 10 mg tablet Take 1 tablet by mouth once daily as needed. FOR ALLERGY SYMPTOMS multivitamins(CHEWABLE MULTI VITAMIN TAB) Take one(1) tablet daily. FAMILY HISTORY Problem Relation Age of Onset Hypertension Mother Blood Disease Father increased platelets. Hypertension Father No Known Problems Maternal Grandmother Asthma Paternal Grandmother Hypertension Other Breast Cancer Other maternal side Social History Tobacco Use Smoking status: Never Smokeless tobacco: Never Vaping Use Vaping Use: Never used Substance Use Topics Alcohol use: Yes Comment: rarely every other weekend Drug use: No ASSESSMENT/PLAN: 1. Sore throat - ICD9: 462, ICD10: J02.9 (primary diagnosis) - STREP A MOLECULAR (POC) -neg 2.Bilateral impacted cerumen - ICD9: 380.4, ICD10: H61.23 - REMOVAL OF IMPACTED CERUMEN - INSTRUMENTATION - COVID AND INFLUENZA A/B AND RSV NAAT, ROUTINE Omnicef provided for patient per patient's request. Patient was educated to monitor for symptoms of allergic reaction. Prescription instructions reviewed with patient as applicable. Potential red flag symptoms discussed with the patient. Reviewed appropriate action plan to take if red flag symptoms occur. Patient agreeable to treatment plan. Laura Ortega APRN.CNP [facility] 12-28-2022 Nurse Note Ambulatory Ear Lavage Pre-treatment: Warm water Treatment: Both ears Equipment and Irrigation solution and Volume used: Single use syringe with single use irrigation tip Water Return flow appearance: Brown Yellow Patient tolerated procedure: yes Tympanic membrane assessment: Tympanic membrane assessed by LIP pre and post procedure Laura Ortega APRN.[employer] documented in this encounter [facility] 12-28-2022 History of Presen t illness Narrative CC: Patient presents with: Sore Throat: right ear pain and fatigue x 1 day HPI: Alexandra Cox is a 22 year old female who presents to the office with complaint of sore throat and ear symptoms for the past day. Symptoms are staying the same. Associated symptoms includes fatigue. Denies nausea, vomiting , and diarrhea. Treatments tried include nothing so far. with no relief of symptoms. Sick contacts: unknown. History of asthma, frequent episodes of bronchitis, chronic bronchitis, bronchiectasis or COPD: Yes asthma Smoker: No Seasonal/environmental allergies: No The ROS is otherwise negative. The patient's pmh, medications, allergies, and past visits are reviewed. PHYSICAL EXAM: BP 122/80 Pulse 68 Temp 36.6 C (97.8 F) Resp 16 Wt 81.6 kg (180 lb) LMP 04/23/2021 (Approximate) SpO2 99% BMI 28.42 kg/m General appearance: alert, cooperative, pleasant, in no acute distress Head: Normocephalic Eyes: EOM's intact, conjunctiva pink and moist, no icterus, sclera white, non-injected Ears: Right ear: External ear/canal- cerumen impaction,. Left ear: External ear/canal- cerumen impaction, Oropharynx:moderate erythema, without exudates present Heart: Negative. RRR without obvious murmur, gallop, or rubs. No ectopy. Lungs: clear to auscultation, without rales or wheeze, good air exchange PAST MEDICAL HISTORY Diagnosis Date Acne PAST SURGICAL HISTORY Procedure Laterality Date PAST SURGICAL HISTORY OF 01/07/2020 Breast reduction surgery UNSPECIFIED ORAL SURGERY PROCEDURE, BY REPORT [facility] ALLERGIES Clindamycin and Duricef [Cefadroxil] MEDICATIONS escitalopram oxalate (LEXAPRO) 10 mg tablet Take 1 tablet by mouth once daily. montelukast (SINGULAIR) 10 mg tablet TAKE 1 TABLET BY MOUTH EVERYDAY AT BEDTIME albuterol HFA (VENTOLIN HFA) 90 mcg/actuation inhaler Inhale 2 Puffs as instructed every 4 hours as needed for wheezing/shortness of breath. levonorgestrel (TIRSO) 14 mcg/24 hrs (3 yrs) 13.5 mg IUD IUD levonorgestrel 14 mcg/24 hrs (3 yrs) 13.5 mg intrauterine device Active 1 INSERT INTRA-UTER ONCE March 26, 2021 2:36pm loratadine (CLARITIN) 10 mg tablet Take 1 tablet by mouth once daily as needed. FOR ALLERGY SYMPTOMS multivitamins(CHEWABLE MULTI VITAMIN TAB) Take one(1) tablet daily. FAMILY HISTORY Problem Relation Age of Onset Hypertension Mother Blood Disease Father increased platelets. Hypertension Father No Known Problems Maternal Grandmother Asthma Paternal Grandmother Hypertension Other Breast Cancer Other maternal side Social History Tobacco Use Smoking status: Never Smokeless tobacco: Never Vaping Use Vaping Use: Never used Substance Use Topics Alcohol use: Yes Comment: rarely every other weekend Drug use: No ASSESSMENT/PLAN: 1. Sore throat - ICD9: 462, ICD10: J02.9 (primary diagnosis) - STREP A MOLECULAR (POC) -neg 2.Bilateral impacted cerumen - ICD9: 380.4, ICD10: H61.23 - REMOVAL OF IMPACTED CERUMEN - INSTRUMENTATION - COVID & INFLUENZA A/B & RSV NAAT, ROUTINE Omnicef provided for patient per patient's request. Patient was educated to monitor for symptoms of allergic reaction. Prescription instructions reviewed with patient as applicable. Potential red flag symptoms discussed with the patient. Reviewed appropriate action plan to take if red flag symptoms occur. Patient agreeable to treatment plan. Laura Ortega APRN.CASEY documented in this encounter [facility] 12-20-2022 Note HNO ID: [id number] Author: Adonay Turner APRN.CASEY Service: ? Author Type: Nurse Practitioner Type: Progress Notes Filed: 12/20/2022 7:54 AM Note Text: Subjective HPI Nontoxic female presents urgent care chief complaint itching. Duration of symptoms 3 days. Associated symptoms pruritus. Patient states noticed some itching in her scalp area. Contributed this to the new dry shampoo that she has been using. Has noticed some itching on her torso that has since then proved. Presents today for evaluation. Concerned about possible lice. No contact with individuals with lice. No pain. Overall feels well. Denies any fever body aches chills productive cough chest pain shortness of breath pleuritic pain hemoptysis nausea vomiting abdominal pain change in bowel or bladder habits. Past medical history prescription medication use and allergies reviewed. BP 122/80 Pulse 64 Temp 36.8 ?C (98.3 ?F) Resp 16 Wt 81.2 kg (179 lb) LMP 04/23/2021 (Approximate) SpO2 100% BMI 28.26 kg/m? .Patient presents with: Itching: All over x 3 days PAST MEDICAL HISTORY Diagnosis Date Acne PAST SURGICAL HISTORY Procedure Laterality Date PAST SURGICAL HISTORY OF 01/07/2020 Breast reduction surgery UNSPECIFIED ORAL SURGERY PROCEDURE, BY REPORT [facility] ALLERGIES Clindamycin and Duricef [Cefadroxil] MEDICATIONS escitalopram oxalate (LEXAPRO) 10 mg tablet Take 1 tablet by mouth once daily. montelukast (SINGULAIR) 10 mg tablet TAKE 1 TABLET BY MOUTH EVERYDAY AT BEDTIME albuterol HFA (VENTOLIN HFA) 90 mcg/actuation inhaler Inhale 2 Puffs as instructed every 4 hours as needed for wheezing/shortness of breath. levonorgestrel (TIRSO) 14 mcg/24 hrs (3 yrs) 13.5 mg IUD IUD levonorgestrel 14 mcg/24 hrs (3 yrs) 13.5 mg intrauterine device Active 1 INSERT INTRA-UTER ONCE March 26, 2021 2:36pm loratadine (CLARITIN) 10 mg tablet Take 1 tablet by mouth once daily as needed. FOR ALLERGY SYMPTOMS multivitamins(CHEWABLE MULTI VITAMIN TAB) Take one(1) tablet daily. FAMILY HISTORY Problem Relation Age of Onset Hypertension Mother Blood Disease Father increased platelets. Hypertension Father No Known Problems Maternal Grandmother Asthma Paternal Grandmother Hypertension Other Breast Cancer Other maternal side Social History Tobacco Use Smoking status: Never Smokeless tobacco: Never Vaping Use Vaping Use: Never used Substance Use Topics Alcohol use: Yes Comment: rarely every other weekend Drug use: No Review of Systems Constitutional: Negative for chills, fever and malaise/fatigue. HENT: Negative for congestion, ear discharge, ear pain, sinus pain and sore throat. Eyes: Negative for blurred vision, pain, discharge and redness. Respiratory: Negative for cough, hemoptysis, sputum production, shortness of breath, wheezing and stridor. Cardiovascular: Negative for chest pain. Gastrointestinal: Negative for abdominal pain, diarrhea, nausea and vomiting. Musculoskeletal: Negative for myalgias. Skin: Positive for itching. Negative for rash. Neurological: Negative for dizziness and headaches. Objective Physical Exam Constitutional: General: She is not in acute distress. Appearance: She is not toxic-appearing. HENT: Head: Normocephalic. Nose: Nose normal. Mouth/Throat: Mouth: Mucous membranes are moist. Pharynx: Oropharynx is clear. No oropharyngeal exudate or posterior oropharyngeal erythema. Eyes: Pupils: Pupils are equal, round, and reactive to light. Cardiovascular: Rate and Rhythm: Normal rate. Pulmonary: Effort: Pulmonary effort is normal. No respiratory distress. Musculoskeletal: Cervical back: Normal range of motion. Lymphadenopathy: Cervical: No cervical adenopathy. Skin: General: Skin is warm and dry. Findings: No rash. Neurological: General: No focal deficit present. Mental Status: She is alert. ASSESSMENT/PLAN: 1. Itching - ICD9: 698.9, ICD10: L29.9 Patient diagnosed with itching. Suspicious related to the new dry shampoo. Discontinue the use of new dry shampoo. Will use antihistamines as discussed. Patient was educated on supportive therapies. Patient will follow up with primary care provider as needed. Patient was instructed to immediately proceed to emergency room for any new, worsening, or symptoms lasting longer than anticipated. The patient's clinical presentation is otherwise unremarkable at this time. Based on exam and clinical finding, the patient is stable for discharge. Plan of care was discussed with patient. Patient verbalizes understanding and agrees to plan of care. This note was generated using WisdomTree software. It may contain errors in wording, punctuation, or spelling. Adonay Turner APRN.[facility] 12-20-2022 History of Presen t illness Narrative Subjective HPI Nontoxic female presents urgent care chief complaint itching. Duration of symptoms 3 days. Associated symptoms pruritus. Patient states noticed some itching in her scalp area. Contributed this to the new dry shampoo that she has been using. Has noticed some itching on her torso that has since then proved. Presents today for evaluation. Concerned about possible lice. No contact with individuals with lice. No pain. Overall feels well. Denies any fever body aches chills productive cough chest pain shortness of breath pleuritic pain hemoptysis nausea vomiting abdominal pain change in bowel or bladder habits. Past medical history prescription medication use and allergies reviewed. BP 122/80 Pulse 64 Temp 36.8 C (98.3 F) Resp 16 Wt 81.2 kg (179 lb) LMP 04/23/2021 (Approximate) SpO2 100% BMI 28.26 kg/m .Patient presents with: Itching: All over x 3 days PAST MEDICAL HISTORY Diagnosis Date Acne PAST SURGICAL HISTORY Procedure Laterality Date PAST SURGICAL HISTORY OF 01/07/2020 Breast reduction surgery UNSPECIFIED ORAL SURGERY PROCEDURE, BY REPORT [facility] ALLERGIES Clindamycin and Duricef [Cefadroxil] MEDICATIONS escitalopram oxalate (LEXAPRO) 10 mg tablet Take 1 tablet by mouth once daily. montelukast (SINGULAIR) 10 mg tablet TAKE 1 TABLET BY MOUTH EVERYDAY AT BEDTIME albuterol HFA (VENTOLIN HFA) 90 mcg/actuation inhaler Inhale 2 Puffs as instructed every 4 hours as needed for wheezing/shortness of breath. levonorgestrel (TIRSO) 14 mcg/24 hrs (3 yrs) 13.5 mg IUD IUD levonorgestrel 14 mcg/24 hrs (3 yrs) 13.5 mg intrauterine device Active 1 INSERT INTRA-UTER ONCE March 26, 2021 2:36pm loratadine (CLARITIN) 10 mg tablet Take 1 tablet by mouth once daily as needed. FOR ALLERGY SYMPTOMS multivitamins(CHEWABLE MULTI VITAMIN TAB) Take one(1) tablet daily. FAMILY HISTORY Problem Relation Age of Onset Hypertension Mother Blood Disease Father increased platelets. Hypertension Father No Known Problems Maternal Grandmother Asthma Paternal Grandmother Hypertension Other Breast Cancer Other maternal side Social History Tobacco Use Smoking status: Never Smokeless tobacco: Never Vaping Use Vaping Use: Never used Substance Use Topics Alcohol use: Yes Comment: rarely every other weekend Drug use: No Review of Systems Constitutional: Negative for chills, fever and malaise/fatigue. HENT: Negative for congestion, ear discharge, ear pain, sinus pain and sore throat. Eyes: Negative for blurred vision, pain, discharge and redness. Respiratory: Negative for cough, hemoptysis, sputum production, shortness of breath, wheezing and stridor. Cardiovascular: Negative for chest pain. Gastrointestinal: Negative for abdominal pain, diarrhea, nausea and vomiting. Musculoskeletal: Negative for myalgias. Skin: Positive for itching. Negative for rash. Neurological: Negative for dizziness and headaches. Objective Physical Exam Constitutional: General: She is not in acute distress. Appearance: She is not toxic-appearing. HENT: Head: Normocephalic. Nose: Nose normal. Mouth/Throat: Mouth: Mucous membranes are moist. Pharynx: Oropharynx is clear. No oropharyngeal exudate or posterior oropharyngeal erythema. Eyes: Pupils: Pupils are equal, round, and reactive to light. Cardiovascular: Rate and Rhythm: Normal rate. Pulmonary: Effort: Pulmonary effort is normal. No respiratory distress. Musculoskeletal: Cervical back: Normal range of motion. Lymphadenopathy: Cervical: No cervical adenopathy. Skin: General: Skin is warm and dry. Findings: No rash. Neurological: General: No focal deficit present. Mental Status: She is alert. ASSESSMENT/PLAN: 1. Itching - ICD9: 698.9, ICD10: L29.9 Patient diagnosed with itching. Suspicious related to the new dry shampoo. Discontinue the use of new dry shampoo. Will use antihistamines as discussed. Patient was educated on supportive therapies. Patient will follow up with primary care provider as needed. Patient was instructed to immediately proceed to emergency room for any new, worsening, or symptoms lasting longer than anticipated. The patient's clinical presentation is otherwise unremarkable at this time. Based on exam and clinical finding, the patient is stable for discharge. Plan of care was discussed with patient. Patient verbalizes understanding and agrees to plan of care. This note was generated using WisdomTree software. It may contain errors in wording, punctuation, or spelling. Adonay Turner APRN.CASEY documented in this encounter [facility] 10-30-2022 Note HNO ID: [id number] Author: Neelima Samuels APRN.CASEY Service: ? Author Type: Nurse Practitioner Type: Progress Notes Filed: 10/30/2022 11:50 AM Note Text: This note was created using WolfGISter. Subjective Alexandra Cox is a 21 year old female. 21 year old female with PMH asthma, anxiety and depression presents for illness. Acute onset yesterday +sore throat Waqar accompanying URI sx. Denies cough Seen 09/28/22, diagnosed with strep States this feels similar to prior episodes of strep. Denies inability to handle secretions. Denies skin rash or lesions. Denies tobacco usage. Denies using homeopathic or OTC. The history is provided by the patient. No application helper was used. Sore Throat This is a new problem. The current episode started yesterday. The problem has been gradually worsening. Neither side of throat is experiencing more pain than the other. There has been no fever. The fever has been present for Less than 1 day. The pain is at a severity of 5/10. The pain is moderate. Associated symptoms include swollen glands. Pertinent negatives include no abdominal pain, congestion, coughing, diarrhea, drooling, ear discharge, ear pain, headaches, hoarse voice, plugged ear sensation, neck pain, shortness of breath, stridor, trouble swallowing or vomiting. She has had exposure to strep. She has had no exposure to mono. She has tried nothing for the symptoms. The treatment provided mild relief. PAST MEDICAL HISTORY Diagnosis Date Acne PAST SURGICAL HISTORY Procedure Laterality Date PAST SURGICAL HISTORY OF 01/07/2020 Breast reduction surgery UNSPECIFIED ORAL SURGERY PROCEDURE, BY REPORT [facility] ALLERGIES Clindamycin and Duricef [Cefadroxil] MEDICATIONS amoxicillin (AMOXIL) 500 mg capsule Take 1 capsule by mouth twice daily for 10 days. escitalopram oxalate (LEXAPRO) 10 mg tablet Take 1 tablet by mouth once daily. montelukast (SINGULAIR) 10 mg tablet TAKE 1 TABLET BY MOUTH EVERYDAY AT BEDTIME albuterol HFA (VENTOLIN HFA) 90 mcg/actuation inhaler Inhale 2 Puffs as instructed every 4 hours as needed for wheezing/shortness of breath. levonorgestrel (TIRSO) 14 mcg/24 hrs (3 yrs) 13.5 mg IUD IUD levonorgestrel 14 mcg/24 hrs (3 yrs) 13.5 mg intrauterine device Active 1 INSERT INTRA-UTER ONCE March 26, 2021 2:36pm loratadine (CLARITIN) 10 mg tablet Take 1 tablet by mouth once daily as needed. FOR ALLERGY SYMPTOMS multivitamins(CHEWABLE MULTI VITAMIN TAB) Take one(1) tablet daily. FAMILY HISTORY Problem Relation Age of Onset Hypertension Mother Blood Disease Father increased platelets. Hypertension Father No Known Problems Maternal Grandmother Asthma Paternal Grandmother Hypertension Other Breast Cancer Other maternal side Social History Tobacco Use Smoking status: Never Smokeless tobacco: Never Vaping Use Vaping Use: Never used Substance Use Topics Alcohol use: Yes Comment: rarely every other weekend Drug use: No Review of Systems Constitutional: Negative for activity change, appetite change, chills and diaphoresis. HENT: Positive for sore throat. Negative for congestion, drooling, ear discharge, ear pain, hoarse voice and trouble swallowing. Respiratory: Negative for cough, shortness of breath and stridor. Cardiovascular: Negative for chest pain, palpitations and leg swelling. Gastrointestinal: Negative for abdominal pain, diarrhea and vomiting. Musculoskeletal: Negative for arthralgias, back pain, gait problem and neck pain. Skin: Negative for color change, pallor, rash and wound. Neurological: Negative for headaches. Hematological: Negative for adenopathy. Does not bruise/bleed easily. Psychiatric/Behavioral: Negative for agitation and behavioral problems. Objective BP 116/79 Pulse 71 Temp 36.9 ?C (98.4 ?F) Resp 18 Wt 79.5 kg (175 lb 3.2 oz) LMP 04/23/2021 (Approximate) SpO2 99% BMI 27.66 kg/m? Physical Exam Vitals and nursing note reviewed. Constitutional: General: She is not in acute distress. Appearance: Normal appearance. She is normal weight. She is not ill-appearing, toxic-appearing or diaphoretic. HENT: Head: Normocephalic and atraumatic. Right Ear: Ear canal and external ear normal. Left Ear: Ear canal and external ear normal. Nose: Nose normal. No congestion or rhinorrhea. Mouth/Throat: Mouth: Mucous membranes are moist. Pharynx: Posterior oropharyngeal erythema (3 + enlarged tonsils. Uvula midline. Handling secretions.) present. No oropharyngeal exudate. Eyes: General: Right eye: No discharge. Left eye: No discharge. Extraocular Movements: Extraocular movements intact. Conjunctiva/sclera: Conjunctivae normal. Pupils: Pupils are equal, round, and reactive to light. Cardiovascular: Rate and Rhythm: Normal rate and regular rhythm. Pulses: Normal pulses. Heart sounds: Normal heart sounds. No murmur heard. No friction rub. Pulmonary: Effor (more content not included)... [facility] 10-30-2022 History of Presen t illness Narrative This note was created using Voxariter. Subjective Alexandra Cox is a 21 year old female. 21 year old female with PMH asthma, anxiety and depression presents for illness. Acute onset yesterday +sore throat Waqar accompanying URI sx. Denies cough Seen 09/28/22, diagnosed with strep States this feels similar to prior episodes of strep. Denies inability to handle secretions. Denies skin rash or lesions. Denies tobacco usage. Denies using homeopathic or OTC. The history is provided by the patient. No application helper was used. Sore Throat This is a new problem. The current episode started yesterday. The problem has been gradually worsening. Neither side of throat is experiencing more pain than the other. There has been no fever. The fever has been present for Less than 1 day. The pain is at a severity of 5/10. The pain is moderate. Associated symptoms include swollen glands. Pertinent negatives include no abdominal pain, congestion, coughing, diarrhea, drooling, ear discharge, ear pain, headaches, hoarse voice, plugged ear sensation, neck pain, shortness of breath, stridor, trouble swallowing or vomiting. She has had exposure to strep. She has had no exposure to mono. She has tried nothing for the symptoms. The treatment provided mild relief. PAST MEDICAL HISTORY Diagnosis Date Acne PAST SURGICAL HISTORY Procedure Laterality Date PAST SURGICAL HISTORY OF 01/07/2020 Breast reduction surgery UNSPECIFIED ORAL SURGERY PROCEDURE, BY REPORT [facility] ALLERGIES Clindamycin and Duricef [Cefadroxil] MEDICATIONS amoxicillin (AMOXIL) 500 mg capsule Take 1 capsule by mouth twice daily for 10 days. escitalopram oxalate (LEXAPRO) 10 mg tablet Take 1 tablet by mouth once daily. montelukast (SINGULAIR) 10 mg tablet TAKE 1 TABLET BY MOUTH EVERYDAY AT BEDTIME albuterol HFA (VENTOLIN HFA) 90 mcg/actuation inhaler Inhale 2 Puffs as instructed every 4 hours as needed for wheezing/shortness of breath. levonorgestrel (TIRSO) 14 mcg/24 hrs (3 yrs) 13.5 mg IUD IUD levonorgestrel 14 mcg/24 hrs (3 yrs) 13.5 mg intrauterine device Active 1 INSERT INTRA-UTER ONCE March 26, 2021 2:36pm loratadine (CLARITIN) 10 mg tablet Take 1 tablet by mouth once daily as needed. FOR ALLERGY SYMPTOMS multivitamins(CHEWABLE MULTI VITAMIN TAB) Take one(1) tablet daily. FAMILY HISTORY Problem Relation Age of Onset Hypertension Mother Blood Disease Father increased platelets. Hypertension Father No Known Problems Maternal Grandmother Asthma Paternal Grandmother Hypertension Other Breast Cancer Other maternal side Social History Tobacco Use Smoking status: Never Smokeless tobacco: Never Vaping Use Vaping Use: Never used Substance Use Topics Alcohol use: Yes Comment: rarely every other weekend Drug use: No Review of Systems Constitutional: Negative for activity change, appetite change, chills and diaphoresis. HENT: Positive for sore throat. Negative for congestion, drooling, ear discharge, ear pain, hoarse voice and trouble swallowing. Respiratory: Negative for cough, shortness of breath and stridor. Cardiovascular: Negative for chest pain, palpitations and leg swelling. Gastrointestinal: Negative for abdominal pain, diarrhea and vomiting. Musculoskeletal: Negative for arthralgias, back pain, gait problem and neck pain. Skin: Negative for color change, pallor, rash and wound. Neurological: Negative for headaches. Hematological: Negative for adenopathy. Does not bruise/bleed easily. Psychiatric/Behavioral: Negative for agitation and behavioral problems. Objective BP 116/79 Pulse 71 Temp 36.9 C (98.4 F) Resp 18 Wt 79.5 kg (175 lb 3.2 oz) LMP 04/23/2021 (Approximate) SpO2 99% BMI 27.66 kg/m Physical Exam Vitals and nursing note reviewed. Constitutional: General: She is not in acute distress. Appearance: Normal appearance. She is normal weight. She is not ill-appearing, toxic-appearing or diaphoretic. HENT: Head: Normocephalic and atraumatic. Right Ear: Ear canal and external ear normal. Left Ear: Ear canal and external ear normal. Nose: Nose normal. No congestion or rhinorrhea. Mouth/Throat: Mouth: Mucous membranes are moist. Pharynx: Posterior oropharyngeal erythema (3 + enlarged tonsils. Uvula midline. Handling secretions.) present. No oropharyngeal exudate. Eyes: General: Right eye: No discharge. Left eye: No discharge. Extraocular Movements: Extraocular movements intact. Conjunctiva/sclera: Conjunctivae normal. Pupils: Pupils are equal, round, and reactive to light. Cardiovascular: Rate and Rhythm: Normal rate and regular rhythm. Pulses: Normal pulses. Heart sounds: Normal heart sounds. No murmur heard. No friction rub. Pulmonary: Effort: Pulmonary effort is normal. No respiratory distress. Breath sounds: Normal breath sounds. No stridor. No wheezing, rhonchi or rales. Chest: Chest wall: No tenderness. Abdominal: General: Abdomen is flat. There is no distension. Palpations: Abdomen is soft. There is no mass. Tenderness: There is no abdominal tenderness. There is no right CVA tenderness, left CVA tenderness, guarding or rebound. Hernia: No hernia is present. Musculoskeletal: General: No swelling, tenderness, deformity or signs of injury. Normal range of motion. Cervical back: Normal range of motion and neck supple. No rigidity. Right lower leg: No edema. Left lower leg: No edema. Lymphadenopathy: Cervical: Cervical adenopathy present. Skin: General: Skin is warm and dry. Capillary Refill: Capillary refill takes less than 2 seconds. Coloration: Skin is not jaundiced or pale. Findings: No bruising, erythema, lesion or rash. Neurological: General: No focal deficit present. Mental Status: She is alert and oriented to person, place, and time. Cranial Nerves: No cranial nerve deficit. Sensory: No sensory deficit. Motor: No weakness. Coordination: Coordination normal. Gait: Gait normal. Psychiatric: Mood and Affect: Mood normal. Behavior: Behavior normal. Thought Content: Thought content normal. Judgment: Judgment normal. Assessment and Plan ASSESSMENT/PLAN: 1. Strep pharyngitis - ICD9: 034.0, ICD10: J02.0 - suspect strep - Group A strep molecular testing positive - antibiotic as written - Discussed supportive care treatment with fluids, rest and analgesia. - The patient may also use OTC cough and cold meds as needed, warm salt water gargles, throat lozenges and/or OTC throat spray as needed, and nasal saline gtts and suction prn. - Contagious dz precautions discussed- including considered contagious until on antibiotics for 24 hours - The patient should follow up in 3-5 days if symptoms persist or worsen - Call back if drooling, increased temperature, symptoms of dehydration and/or still sick in one week - STREP A MOLECULAR (POC) - CONSULT TO ENT Neelima Samuels APRN.STONEMASON SUPERVISOR documented in this encounter [facility] 10-07-2022 Miscellaneous Notes Send to preferred gastroenterology provider-Dr Vega. documented in this encounter [facility] 09-28-2022 Note HNO ID: [id number] Author: Andra Drake PA Service: ? Author Type: Physician Straw Boss Type: Progress Notes Filed: 09/28/2022 10:56 AM Note Text: This note was created using WolfGISter. Subjective Alexandra Cox is a 21 year old female. HPI 1-year-old female presents for sore throat, fevers. Patient states that she has had sore throat and felt feverish for the past 2 to 3 days. No sick contacts. No vomiting or diarrhea. Still able to drink fluids, but reports it is painful to eat. No cough, congestion. No other complaints. PAST MEDICAL HISTORY Diagnosis Date Acne PAST SURGICAL HISTORY Procedure Laterality Date PAST SURGICAL HISTORY OF 01/07/2020 Breast reduction surgery UNSPECIFIED ORAL SURGERY PROCEDURE, BY REPORT [facility] ALLERGIES Clindamycin and Duricef [Cefadroxil] MEDICATIONS escitalopram oxalate (LEXAPRO) 10 mg tablet Take 1 tablet by mouth once daily. montelukast (SINGULAIR) 10 mg tablet TAKE 1 TABLET BY MOUTH EVERYDAY AT BEDTIME albuterol HFA (VENTOLIN HFA) 90 mcg/actuation inhaler Inhale 2 Puffs as instructed every 4 hours as needed for wheezing/shortness of breath. levonorgestrel (TIRSO) 14 mcg/24 hrs (3 yrs) 13.5 mg IUD IUD levonorgestrel 14 mcg/24 hrs (3 yrs) 13.5 mg intrauterine device Active 1 INSERT INTRA-UTER ONCE March 26, 2021 2:36pm loratadine (CLARITIN) 10 mg tablet Take 1 tablet by mouth once daily as needed. FOR ALLERGY SYMPTOMS multivitamins(CHEWABLE MULTI VITAMIN TAB) Take one(1) tablet daily. FAMILY HISTORY Problem Relation Age of Onset Hypertension Mother Blood Disease Father increased platelets. Hypertension Father No Known Problems Maternal Grandmother Asthma Paternal Grandmother Hypertension Other Breast Cancer Other maternal side Social History Tobacco Use Smoking status: Never Smokeless tobacco: Never Vaping Use Vaping Use: Never used Substance Use Topics Alcohol use: Yes Comment: rarely every other weekend Drug use: No Review of Systems Constitutional: Positive for fever. Negative for chills. HENT: Positive for sore throat. Negative for congestion and ear pain. Respiratory: Negative for cough and shortness of breath. Cardiovascular: Negative for chest pain. Gastrointestinal: Negative for diarrhea and vomiting. Objective BP 128/62 Pulse 102 Temp 37.4 ?C (99.4 ?F) Resp 15 Wt 78.6 kg (173 lb 3.2 oz) LMP 04/23/2021 (Approximate) SpO2 98% BMI 27.35 kg/m? Physical Exam Vitals and nursing note reviewed. Constitutional: General: She is not in acute distress. Appearance: Normal appearance. She is not toxic-appearing. HENT: Right Ear: Tympanic membrane and ear canal normal. Left Ear: Tympanic membrane and ear canal normal. Nose: Nose normal. Mouth/Throat: Mouth: Mucous membranes are moist. Pharynx: Uvula midline. Posterior oropharyngeal erythema present. No oropharyngeal exudate. Tonsils: No tonsillar exudate or tonsillar abscesses. 2+ on the right. 2+ on the left. Eyes: Conjunctiva/sclera: Conjunctivae normal. Cardiovascular: Rate and Rhythm: Normal rate and regular rhythm. Pulmonary: Effort: Pulmonary effort is normal. Breath sounds: Normal breath sounds. Neurological: Mental Status: She is alert. Assessment and Plan ASSESSMENT/PLAN: 1. Strep pharyngitis - ICD9: 034.0, ICD10: J02.0 (primary diagnosis) - suspect strep - Alere Strep Test positive, no culture pending - Amoxicillin for 10 days. - Discussed supportive care treatment with fluids, rest and analgesia. 2. Sore throat - ICD9: 462, ICD10: J02.9 - STREP A MOLECULAR (POC) Diagnosis and treatment plan were discussed and questions were answered to the patient's satisfaction. Pt acknowledged understanding of concepts and follow up plan. Specific signs and symptoms that would indicate the need for higher level of care were discussed in detail warranting prompt ER evaluation. TEJAL Neal [facility] 09-28-2022 History of Presen t illness Narrative This note was created using NoteWriter. Subjective Alexandra Cox is a 21 year old female. HPI 1-year-old female presents for sore throat, fevers. Patient states that she has had sore throat and felt feverish for the past 2 to 3 days. No sick contacts. No vomiting or diarrhea. Still able to drink fluids, but reports it is painful to eat. No cough, congestion. No other complaints. PAST MEDICAL HISTORY Diagnosis Date Acne PAST SURGICAL HISTORY Procedure Laterality Date PAST SURGICAL HISTORY OF 01/07/2020 Breast reduction surgery UNSPECIFIED ORAL SURGERY PROCEDURE, BY REPORT [place] [facility] ALLERGIES Clindamycin and Duricef [Cefadroxil] MEDICATIONS escitalopram oxalate (LEXAPRO) 10 mg tablet Take 1 tablet by mouth once daily. montelukast (SINGULAIR) 10 mg tablet TAKE 1 TABLET BY MOUTH EVERYDAY AT BEDTIME albuterol HFA (VENTOLIN HFA) 90 mcg/actuation inhaler Inhale 2 Puffs as instructed every 4 hours as needed for wheezing/shortness of breath. levonorgestrel (TIRSO) 14 mcg/24 hrs (3 yrs) 13.5 mg IUD IUD levonorgestrel 14 mcg/24 hrs (3 yrs) 13.5 mg intrauterine device Active 1 INSERT INTRA-UTER ONCE 1 March 26, 2021 2:36pm loratadine (CLARITIN) 10 mg tablet Take 1 tablet by mouth once daily as needed. FOR ALLERGY SYMPTOMS multivitamins(CHEWABLE MULTI VITAMIN TAB) Take one(1) tablet daily. FAMILY HISTORY Problem Relation Age of Onset Hypertension Mother Blood Disease Father increased platelets. Hypertension Father No Known Problems Maternal Grandmother Asthma Paternal Grandmother Hypertension Other Breast Cancer Other maternal side Social History Tobacco Use Smoking status: Never Smokeless tobacco: Never Vaping Use Vaping Use: Never used Substance Use Topics Alcohol use: Yes Comment: rarely every other weekend Drug use: No Review of Systems Constitutional: Positive for fever. Negative for chills. HENT: Positive for sore throat. Negative for congestion and ear pain. Respiratory: Negative for cough and shortness of breath. Cardiovascular: Negative for chest pain. Gastrointestinal: Negative for diarrhea and vomiting. Objective BP 128/62 Pulse 102 Temp 37.4 C (99.4 F) Resp 15 Wt 78.6 kg (173 lb 3.2 oz) LMP 04/23/2021 (Approximate) SpO2 98% BMI 27.35 kg/m Physical Exam Vitals and nursing note reviewed. Constitutional: General: She is not in acute distress. Appearance: Normal appearance. She is not toxic-appearing. HENT: Right Ear: Tympanic membrane and ear canal normal. Left Ear: Tympanic membrane and ear canal normal. Nose: Nose normal. Mouth/Throat: Mouth: Mucous membranes are moist. Pharynx: Uvula midline. Posterior oropharyngeal erythema present. No oropharyngeal exudate. Tonsils: No tonsillar exudate or tonsillar abscesses. 2+ on the right. 2+ on the left. Eyes: Conjunctiva/sclera: Conjunctivae normal. Cardiovascular: Rate and Rhythm: Normal rate and regular rhythm. Pulmonary: Effort: Pulmonary effort is normal. Breath sounds: Normal breath sounds. Neurological: Mental Status: She is alert. Assessment and Plan ASSESSMENT/PLAN: 1. Strep pharyngitis - ICD9: 034.0, ICD10: J02.0 (primary diagnosis) - suspect strep - Alere Strep Test positive, no culture pending - Amoxicillin for 10 days. - Discussed supportive care treatment with fluids, rest and analgesia. 2. Sore throat - ICD9: 462, ICD10: J02.9 - STREP A MOLECULAR (POC) Diagnosis and treatment plan were discussed and questions were answered to the patient's satisfaction. Pt acknowledged understanding of concepts and follow up plan. Specific signs and symptoms that would indicate the need for higher level of care were discussed in detail warranting prompt ER evaluation. TEJAL Neal documented in this encounter [facility] 08-23-2022 Note HNO ID: [id number] Author: Yulia Bruce APRN.INDIVIDUAL PENSION CONSULTANT Service: ? Author Type: Nurse Specialist Type: Progress Notes Filed: 08/23/2022 3:05 PM Note Text: SUBJECTIVE: DTAP,TDAP,TD(7 - Td or Tdap) due on 08/24/2022 HPI Alexandra Cox is a 21 year old female. PMH significant for ACTIVE PROBLEM LIST Mild Intermittent Asthma, Uncomplicated Anxiety and Depression Seen at 08/12/2022 for urinary urgency and pressure x 1 day. UA and urine culture negative. Positive for yeast infection. Presents today for follow up visit. She reports not yet back to normal. Some vaginal itching and burning persisting. Diflucan did help.Does not like to use monistat. Review of Systems Constitutional: Negative. Objective BP 108/70 Pulse 74 Resp 16 Wt 78.5 kg (173 lb) LMP 04/23/2021 (Approximate) SpO2 99% BMI 27.31 kg/m? Physical Exam Vitals and nursing note reviewed. Constitutional: Appearance: Normal appearance. HENT: Head: Normocephalic and atraumatic. Eyes: Conjunctiva/sclera: Conjunctivae normal. Cardiovascular: Rate and Rhythm: Normal rate. Pulmonary: Effort: Pulmonary effort is normal. Skin: General: Skin is warm and dry. Neurological: General: No focal deficit present. Mental Status: She is alert and oriented to person, place, and time. ALLERGIES Allergen Reactions Clindamycin Rash ?might have been the morphine since was given at the same time? Duricef [Cefadroxil] Hives Medication escitalopram oxalate (LEXAPRO) 10 mg tablet Take 1 tablet by mouth once daily. montelukast (SINGULAIR) 10 mg tablet TAKE 1 TABLET BY MOUTH EVERYDAY AT BEDTIME albuterol HFA (VENTOLIN HFA) 90 mcg/actuation inhaler Inhale 2 Puffs as instructed every 4 hours as needed for wheezing/shortness of breath. levonorgestrel (TIRSO) 14 mcg/24 hrs (3 yrs) 13.5 mg IUD IUD levonorgestrel 14 mcg/24 hrs (3 yrs) 13.5 mg intrauterine device Active 1 INSERT INTRA-UTER ONCE March 26, 2021 2:36pm loratadine (CLARITIN) 10 mg tablet Take 1 tablet by mouth once daily as needed. FOR ALLERGY SYMPTOMS multivitamins(CHEWABLE MULTI VITAMIN TAB) Take one(1) tablet daily. fluconazole (DIFLUCAN) 150 mg tablet Take 1 tablet by mouth Every 3 Days for 3 doses. Take with food nystatin-triamcinolone (MYCOLOG) ointment Apply 1 application to affected area twice daily for 14 days. Apply sparingly to perineum twice daily for irritation/infection. PAST MEDICAL HISTORY Diagnosis Date Acne Social History Tobacco Use Smoking status: Never Smokeless tobacco: Never Vaping Use Vaping Use: Never used Substance Use Topics Alcohol use: Yes Comment: rarely every other weekend Drug use: No ASSESSMENT/PLAN: 1. Yeast infection - ICD9: 112.9, ICD10: B37.9 - FLUCONAZOLE 150 MG TABLET - NYSTATIN-TRIAMCINOLONE 100,000 UNIT/GRAM-0.1 % TOPICAL OINTMENT Advised: Take Diflucan today. If symptoms not clear can take another dose in 3 days. Can use topical ointment as needed for up to 14 days. Schedule an appointment with SOLAR ENERGY INSTALLATION MANAGER if not clearing up Or routine visit if does clear up with current treatment. Take one half Lexapro tablet on the days taking Diflucan Schedule appt with SOLAR ENERGY INSTALLATION MANAGER Yulia Bruce APRN.CNS Medical Decision Making: Problems: Low: Acute, uncomplicated illness or injury Risk: Moderate: Drug management Medical Decision Making Level: 3 - Low [facility] 08-23-2022 Instructions Yulia Bruce APRN.CNS - 08/23/2022 2:58 PM EDT Take Diflucan today. If symptoms not clear can take another dose in 3 days. Can use topical ointment as needed for up to 14 days. Schedule an appointment with SOLAR ENERGY INSTALLATION MANAGER if not clearing up Or routine visit if does clear up with current treatment. Take one half Lexapro tablet on the days taking Diflucan documented in this encounter [facility] 08-23-2022 History of Presen t illness Narrative SUBJECTIVE: DTAP,TDAP,TD(7 - Td or Tdap) due on 08/24/2022 HPI Alexandra Cox is a 21 year old female. PMH significant for ACTIVE PROBLEM LIST Mild Intermittent Asthma, Uncomplicated Anxiety and Depression Seen at 08/12/2022 for urinary urgency and pressure x 1 day. UA and urine culture negative. Positive for yeast infection. Presents today for follow up visit. She reports not yet back to normal. Some vaginal itching and burning persisting. Diflucan did help.Does not like to use monistat. Review of Systems Constitutional: Negative. Objective BP 108/70 Pulse 74 Resp 16 Wt 78.5 kg (173 lb) LMP 04/23/2021 (Approximate) SpO2 99% BMI 27.31 kg/m Physical Exam Vitals and nursing note reviewed. Constitutional: Appearance: Normal appearance. HENT: Head: Normocephalic and atraumatic. Eyes: Conjunctiva/sclera: Conjunctivae normal. Cardiovascular: Rate and Rhythm: Normal rate. Pulmonary: Effort: Pulmonary effort is normal. Skin: General: Skin is warm and dry. Neurological: General: No focal deficit present. Mental Status: She is alert and oriented to person, place, and time. ALLERGIES Allergen Reactions Clindamycin Rash ?might have been the morphine since was given at the same time? Duricef [Cefadroxil] Hives Medication escitalopram oxalate (LEXAPRO) 10 mg tablet Take 1 tablet by mouth once daily. montelukast (SINGULAIR) 10 mg tablet TAKE 1 TABLET BY MOUTH EVERYDAY AT BEDTIME albuterol HFA (VENTOLIN HFA) 90 mcg/actuation inhaler Inhale 2 Puffs as instructed every 4 hours as needed for wheezing/shortness of breath. levonorgestrel (TIRSO) 14 mcg/24 hrs (3 yrs) 13.5 mg IUD IUD levonorgestrel 14 mcg/24 hrs (3 yrs) 13.5 mg intrauterine device Active 1 INSERT INTRA-UTER ONCE March 26, 2021 2:36pm loratadine (CLARITIN) 10 mg tablet Take 1 tablet by mouth once daily as needed. FOR ALLERGY SYMPTOMS multivitamins(CHEWABLE MULTI VITAMIN TAB) Take one(1) tablet daily. fluconazole (DIFLUCAN) 150 mg tablet Take 1 tablet by mouth Every 3 Days for 3 doses. Take with food nystatin-triamcinolone (MYCOLOG) ointment Apply 1 application to affected area twice daily for 14 days. Apply sparingly to perineum twice daily for irritation/infection. PAST MEDICAL HISTORY Diagnosis Date Acne Social History Tobacco Use Smoking status: Never Smokeless tobacco: Never Vaping Use Vaping Use: Never used Substance Use Topics Alcohol use: Yes Comment: rarely every other weekend Drug use: No ASSESSMENT/PLAN: 1. Yeast infection - ICD9: 112.9, ICD10: B37.9 - FLUCONAZOLE 150 MG TABLET - NYSTATIN-TRIAMCINOLONE 100,000 UNIT/GRAM-0.1 % TOPICAL OINTMENT Advised: Take Diflucan today. If symptoms not clear can take another dose in 3 days. Can use topical ointment as needed for up to 14 days. Schedule an appointment with SOLAR ENERGY INSTALLATION MANAGER if not clearing up Or routine visit if does clear up with current treatment. Take one half Lexapro tablet on the days taking Diflucan Schedule appt with SOLAR ENERGY INSTALLATION MANAGER Yulia Bruce APRN.INDIVIDUAL PENSION CONSULTANT Medical Decision Making: Problems: Low: Acute, uncomplicated illness or injury Risk: Moderate: Drug management Medical Decision Making Level: 3 - Low documented in this encounter [facility] 08-13-2022 Miscellaneous Notes Patient given results and verbalized understanding of instructions given. Mala Gaitan Please call patient and notify her that 1 Diflucan was called and if symptoms are persistent she should follow-up with primary care provider please documented in this encounter [facility] 08-13-2022 Miscellaneous Notes Patient requesting diflucan, states cream never works. Mala Gaitan Chlamydia, gonorrhea, trichomonas, and bacterial vaginosis are all negative. Patient was positive for a yeast infection. Medication was called into the pharmacy patient should follow directions on the medication package if symptoms are persistent she would need to follow-up with primary care. documented in this encounter [facility] 08-12-2022 Note HNO ID: [id number] Author: Laura Ortega APRN.CNP Service: ? Author Type: Nurse Practitioner Type: Progress Notes Filed: 08/12/2022 10:18 AM Note Text: CC: Patient presents with: UTI: Urgency of urination x last night HPI Alexandra Cox is a 21 year old female who presents with complaint of possible UTI. These symptoms have been present for 1 days. Associated symptoms: urgency and pressure Denies: fever, sweats, abdominal pain, and flank pain Treatments: nothing The ROS was otherwise negative. PMH, Medications, labs, allergies, and recent past visits with PCP were reviewed and updated as able. PHYSICAL EXAM: BP 120/74 Pulse 76 Temp 36.3 ?C (97.4 ?F) Resp 18 Wt 79.3 kg (174 lb 12.8 oz) LMP 04/23/2021 (Approximate) SpO2 99% BMI 27.60 kg/m? General: Well appearing and alert CV: Regular rate and rhythm without obvious murmur Lungs: clear to auscultation bilaterally Back: straight and symmetric Abdomen: soft, nontender everywhere except center lower abdomen is mildly tender, nondistended PAST MEDICAL HISTORY Diagnosis Date Acne PAST SURGICAL HISTORY Procedure Laterality Date PAST SURGICAL HISTORY OF 01/07/2020 Breast reduction surgery UNSPECIFIED ORAL SURGERY PROCEDURE, BY REPORT [place] [facility] ALLERGIES Clindamycin and Duricef [Cefadroxil] MEDICATIONS escitalopram oxalate (LEXAPRO) 10 mg tablet Take 1 tablet by mouth once daily. montelukast (SINGULAIR) 10 mg tablet TAKE 1 TABLET BY MOUTH EVERYDAY AT BEDTIME albuterol HFA (VENTOLIN HFA) 90 mcg/actuation inhaler Inhale 2 Puffs as instructed every 4 hours as needed for wheezing/shortness of breath. levonorgestrel (TIRSO) 14 mcg/24 hrs (3 yrs) 13.5 mg IUD IUD levonorgestrel 14 mcg/24 hrs (3 yrs) 13.5 mg intrauterine device Active 1 INSERT INTRA-UTER ONCE 1 March 26, 2021 2:36pm loratadine (CLARITIN) 10 mg tablet Take 1 tablet by mouth once daily as needed. FOR ALLERGY SYMPTOMS multivitamins(CHEWABLE MULTI VITAMIN TAB) Take one(1) tablet daily. FAMILY HISTORY Problem Relation Age of Onset Hypertension Mother Blood Disease Father increased platelets. Hypertension Father No Known Problems Maternal Grandmother Asthma Paternal Grandmother Hypertension Other Breast Cancer Other maternal side Social History Tobacco Use Smoking status: Never Smokeless tobacco: Never Vaping Use Vaping Use: Never used Substance Use Topics Alcohol use: Yes Comment: rarely every other weekend Drug use: No ASSESSMENT/PLAN: 1. Urgency of urination - ICD9: 788.63, ICD10: R39.15 - UA DIP, URINE (POC) - URINE CULTURE - BACTERIAL VAGINOSIS AMPLIFICATION - PEGGY / TRICHOMONAS AMPLIFICATION - GC/CHLAMYDIA DNA DET Patient swab self No Treatment at this time if anything does come back positive please treat accordingly. Potential red flag symptoms discussed with the patient. Reviewed appropriate action plan to take if red flag symptoms occur. Patient agreeable to treatment plan. Laura Ortega APRN.[facility] 06-20-2022 Note HNO ID: [id number] Author: Richelle Leblanc APRN.CNP Service: ? Author Type: Nurse Practitioner Type: Progress Notes Filed: 06/20/2022 7:50 AM Note Text: CC: Patient presents with: Physical: Annual Physical HPI Alexandra Cox is a 21 year old female who presents today for annual physical exam and to meet work insurance requirements. 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 Diet: Watches diet for salt (salty snacks, added salt, processed frozen/canned foods), sugary/sweet snacks, unhealthy fats: Yes Caffeine: none Water intake: 1 gallon a day on average. Asthma: Has not needed emergency inhaler for months. Typically uses it when she has a respiratory infection which was last over 4 months ago. Has never had PFT testing. Denies any cough, wheezing, or shortness of breath. Anxiety and Depression feels well controlled on current treatment. Sleep: is described as normal Alcohol use: drinks less than one drink a day Drug use: No Appetite: good Stresses: Denies any major stressor. Suicidal Thoughts: No suicidal ideation, intent or plan Support: Comes from multiple sources including family REVIEW OF SYSTEMS General: no fevers, no chills, no night sweats, no recurrent infections, no change in appetite, no change in energy, and no significant changes in weight HEENT: no frequent or significant headaches, no changes in hearing, no visual changes, no nose bleeds, no sinus or nasal problems Respiratory: no cough, no wheezing, no shortness of breath, no hemoptysis Cardiovascular: no chest pain, no chest pressure, no palpitations, and no swelling GI: No nausea, vomiting, or diarrhea : No history of dysuria, frequency or incontinence Musculoskeletal: Negative for joint pain or swelling, back pain or muscle pain Skin: Negative for lesions, rash, and itching Endocrine: no fatigue, no weight gain, no weight loss, no polyuria, no polyphagia, and no polydipsia Neurologic: No headache, weakness, numbness, tingling, dizziness, memory loss, syncope. Psych: PHQ2 is 0 PAST MEDICAL HISTORY Diagnosis Date Acne PAST SURGICAL HISTORY Procedure Laterality Date PAST SURGICAL HISTORY OF 01/07/2020 Breast reduction surgery UNSPECIFIED ORAL SURGERY PROCEDURE, BY REPORT [facility] ALLERGIES Clindamycin and Duricef [Cefadroxil] MEDICATIONS escitalopram oxalate (LEXAPRO) 10 mg tablet Take 1 tablet by mouth once daily. montelukast (SINGULAIR) 10 mg tablet TAKE 1 TABLET BY MOUTH EVERYDAY AT BEDTIME albuterol HFA (VENTOLIN HFA) 90 mcg/actuation inhaler Inhale 2 Puffs as instructed every 4 hours as needed for wheezing/shortness of breath. levonorgestrel (TIRSO) 14 mcg/24 hrs (3 yrs) 13.5 mg IUD IUD levonorgestrel 14 mcg/24 hrs (3 yrs) 13.5 mg intrauterine device Active 1 INSERT INTRA-UTER ONCE 1 March 26, 2021 2:36pm loratadine (CLARITIN) 10 mg tablet Take 1 tablet by mouth once daily as needed. FOR ALLERGY SYMPTOMS multivitamins(CHEWABLE MULTI VITAMIN TAB) Take one(1) tablet daily. FAMILY HISTORY Problem Relation Age of Onset Hypertension Mother Blood Disease Father increased platelets. Hypertension Father No Known Problems Maternal Grandmother Asthma Paternal Grandmother Hypertension Other Breast Cancer Other maternal side Social History Tobacco Use Smoking status: Never Smokeless tobacco: Never Vaping Use Vaping Use: Never used Substance Use Topics Alcohol use: Yes Comment: rarely every other weekend Drug use: No PHYSICAL EXAM BP 112/78 Pulse 72 Resp 16 Wt 77.6 kg (171 lb) LMP 04/23/2021 (Approximate) BMI 27.00 kg/m? General Appearance: well appearing, in no acute distress, alert Pysch: mood and affect broad and appropriate Skin: Skin color, texture, turgor normal for age; Eyes: conjunctiva pink and moist, no icterus, sclera white, non-injected Neck: Thyroid normal size and symmetric without palpable nodules, Neck supple, No adenopathy Lymph nodes: No cervical lymphadenopathy and No supraclavicular lymphadenopathy Lungs: Lungs clear to auscultation. No wheezing, rhonchi, rales. Heart: RRR without murmur, gallop, or rubs. No ectopy Extremities: No deformities, edema, skin discoloration, clubbing or cyanosis. Good capillary refill. Neurological: Gait normal. Reflexes normal and symmetric. Sensation grossly intact. GC (GONORRHEA) SCREENING (18-24) due on 01/26/2022 CHLAMYDIA SCREENING (18-24) due on 01/26/2022 SPIROMETRY due on 06/21/2023 HPV VACCINE(1 - 2-dose series) due on 06/21/2023 MENINGOCOCCAL B: Consider based on risk(1 of 2 - Risk Bexsero 2-dose series) due on 06/21/2023 HEPATITIS C SCREENING due on 06/21/2023 HIV SCREENING due on 06/21/2023 COVID-19 VACCINE(1) due on 06/21/2023 PNEUMOCOCCAL(1 - PCV) due on 06/21/2023 DTAP,TDAP,TD(7 - Td or Tdap) due on 08/24/2022 INFLUENZA(Season Ended) due on 10/28/2022 ANNUAL PCP TEAM CHRONIC DISEASE VISIT du (more content not included)... [facility] 06-20-2022 History of Presen t illness Narrative CC: Patient presents with: Physical: Annual Physical HPI Alexandra Cox is a 21 year old female who presents today for annual physical exam and to meet work insurance requirements. 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 Diet: Watches diet for salt (salty snacks, added salt, processed frozen/canned foods), sugary/sweet snacks, unhealthy fats: Yes Caffeine: none Water intake: 1 gallon a day on average. Asthma: Has not needed emergency inhaler for months. Typically uses it when she has a respiratory infection which was last over 4 months ago. Has never had PFT testing. Denies any cough, wheezing, or shortness of breath. Anxiety and Depression feels well controlled on current treatment. Sleep: is described as normal Alcohol use: drinks less than one drink a day Drug use: No Appetite: good Stresses: Denies any major stressor. Suicidal Thoughts: No suicidal ideation, intent or plan Support: Comes from multiple sources including family REVIEW OF SYSTEMS General: no fevers, no chills, no night sweats, no recurrent infections, no change in appetite, no change in energy, and no significant changes in weight HEENT: no frequent or significant headaches, no changes in hearing, no visual changes, no nose bleeds, no sinus or nasal problems Respiratory: no cough, no wheezing, no shortness of breath, no hemoptysis Cardiovascular: no chest pain, no chest pressure, no palpitations, and no swelling GI: No nausea, vomiting, or diarrhea : No history of dysuria, frequency or incontinence Musculoskeletal: Negative for joint pain or swelling, back pain or muscle pain Skin: Negative for lesions, rash, and itching Endocrine: no fatigue, no weight gain, no weight loss, no polyuria, no polyphagia, and no polydipsia Neurologic: No headache, weakness, numbness, tingling, dizziness, memory loss, syncope. Psych: PHQ2 is 0 PAST MEDICAL HISTORY Diagnosis Date Acne PAST SURGICAL HISTORY Procedure Laterality Date PAST SURGICAL HISTORY OF 01/07/2020 Breast reduction surgery UNSPECIFIED ORAL SURGERY PROCEDURE, BY REPORT [facility] ALLERGIES Clindamycin and Duricef [Cefadroxil] MEDICATIONS escitalopram oxalate (LEXAPRO) 10 mg tablet Take 1 tablet by mouth once daily. montelukast (SINGULAIR) 10 mg tablet TAKE 1 TABLET BY MOUTH EVERYDAY AT BEDTIME albuterol HFA (VENTOLIN HFA) 90 mcg/actuation inhaler Inhale 2 Puffs as instructed every 4 hours as needed for wheezing/shortness of breath. levonorgestrel (TIRSO) 14 mcg/24 hrs (3 yrs) 13.5 mg IUD IUD levonorgestrel 14 mcg/24 hrs (3 yrs) 13.5 mg intrauterine device Active 1 INSERT INTRA-UTER ONCE 1 March 26, 2021 2:36pm loratadine (CLARITIN) 10 mg tablet Take 1 tablet by mouth once daily as needed. FOR ALLERGY SYMPTOMS multivitamins(CHEWABLE MULTI VITAMIN TAB) Take one(1) tablet daily. FAMILY HISTORY Problem Relation Age of Onset Hypertension Mother Blood Disease Father increased platelets. Hypertension Father No Known Problems Maternal Grandmother Asthma Paternal Grandmother Hypertension Other Breast Cancer Other maternal side Social History Tobacco Use Smoking status: Never Smokeless tobacco: Never Vaping Use Vaping Use: Never used Substance Use Topics Alcohol use: Yes Comment: rarely every other weekend Drug use: No PHYSICAL EXAM BP 112/78 Pulse 72 Resp 16 Wt 77.6 kg (171 lb) LMP 04/23/2021 (Approximate) BMI 27.00 kg/m General Appearance: well appearing, in no acute distress, alert Pysch: mood and affect broad and appropriate Skin: Skin color, texture, turgor normal for age; Eyes: conjunctiva pink and moist, no icterus, sclera white, non-injected Neck: Thyroid normal size and symmetric without palpable nodules, Neck supple, No adenopathy Lymph nodes: No cervical lymphadenopathy and No supraclavicular lymphadenopathy Lungs: Lungs clear to auscultation. No wheezing, rhonchi, rales. Heart: RRR without murmur, gallop, or rubs. No ectopy Extremities: No deformities, edema, skin discoloration, clubbing or cyanosis. Good capillary refill. Neurological: Gait normal. Reflexes normal and symmetric. Sensation grossly intact. GC (GONORRHEA) SCREENING (18-24) due on 01/26/2022 CHLAMYDIA SCREENING (18-24) due on 01/26/2022 SPIROMETRY due on 06/21/2023 HPV VACCINE(1 - 2-dose series) due on 06/21/2023 MENINGOCOCCAL B: Consider based on risk(1 of 2 - Risk Bexsero 2-dose series) due on 06/21/2023 HEPATITIS C SCREENING due on 06/21/2023 HIV SCREENING due on 06/21/2023 COVID-19 VACCINE(1) due on 06/21/2023 PNEUMOCOCCAL(1 - PCV) due on 06/21/2023 DTAP,TDAP,TD(7 - Td or Tdap) due on 08/24/2022 INFLUENZA(Season Ended) due on 10/28/2022 ANNUAL PCP TEAM CHRONIC DISEASE VISIT due on 12/06/2022 PAP TESTING due on 01/27/2024 HEPATITIS B Completed ASSESSMENT/PLAN: 1. Annual physical exam - ICD9: V70.0, ICD10: Z00.00 (primary diagnosis) - Counseled on healthy diet and regular exercise - Calcium intake with supplements or by diet of 1000 mg/day for under 50, 3347-2897 mg/day for 50+ - Discussed need and benefit for weight loss. BMI 27.00 kg/(m^2) - Check annual GC/Chlamydia for sexually active under 25 or 25+ at increased risk - Depression screening tool completed and reviewed with patient. Based on score and interview, patient is already diagnosed with depression and recommended no further intervention at this time. - Follow up for annual exam in one year - GC/CHLAMYDIA AMPLIF, URINE - BASIC METABOLIC PNL - LIPID PANEL BASIC 2. Anxiety and depression - ICD9: 300.00, 311, ICD10: F41.9, F32.A - controlled at this time - ESCITALOPRAM 10 MG TABLET - Reviewed concept of neurochemical imbalance wth depression/anxiety, treatment options and benefits of counseling in combination with medication. Also reviewed benefits of sleep hygeine, diet and exercise - Instructed patient to contact office or [id number]-ot-fyaj after-hours promptly should condition worsen or any new symptoms appear. - Counseling Center [facility] and after hours crisis line 3. Mild intermittent asthma, uncomplicated - ICD9: 493.90, ICD10: J45.20 Mild intermittent Asthma stable - Continue current meds - Avoidance of triggers recommended 4. Screening for STD (sexually transmitted disease) - ICD9: V74.5, ICD10: Z11.3 - currently not sexually active - GC/CHLAMYDIA AMPLIF, URINE Prescription instructions reviewed with patient as applicable. Potential red flag symptoms discussed with the patient. Reviewed appropriate action plan to take if red flag symptoms occur. Patient agreeable to treatment plan. Richelle Leblanc APRN.CNP documented in this encounter [facility] 04-06-2022 Note HNO ID: [id number] Author: William Wesley, PhD Service: ? Author Type: Psychologist Type: Progress Notes Filed: 04/06/2022 5:18 PM Note Text: [facility] Progress Note Alexandra Miller Kenny 04/06/2022 [id number] Provider: William Wesley, PhD CPT Code: 72221 Psychotherapy 38-52 minutes Time: Approximately 50 minutes was spent in therapy. Parties Present: Patient Patient Presentation/Concerns: ANXIETY has always been central Pt recently broke up w bfrnd of about a year: he was jealous and controlling PLAN: work on self and build a life Pt confirmed or learned: liking walking in the [employer], exercising, touch, he had a 4yo son and pt liked being w him, talking where not walking on egg shells.. dialogue vs monologues making contact w friends he discouraged so she just stopped talking to them NOW: eating better and exercising and friends activities she had cut off.... sometimes feeling depressed or confused etc. Mental Status: Mood: variable Affect: mood-congruent Thoughts/Associations:goal directed Suicidal/Homicidal Ideation: None expressed or evidenced Other Observations: None Therapy Focus Self-care, Stress management, Mood/affect regulation, and Self-esteem MEDICATIONS: Per medical record: Current Outpatient Medications Medication Sig Wsvcxedcjhdvljl-Icjyqzyaq-FA (BROMFED DM) 2-30-10 mg/5 mL syrup Take 10 mL by mouth four times daily as needed. escitalopram oxalate (LEXAPRO) 10 mg tablet Take 1 tablet by mouth once daily. montelukast (SINGULAIR) 10 mg tablet TAKE 1 TABLET BY MOUTH EVERYDAY AT BEDTIME albuterol HFA (VENTOLIN HFA) 90 mcg/actuation inhaler Inhale 2 Puffs as instructed every 4 hours as needed for wheezing/shortness of breath. levonorgestrel (TIRSO) 14 mcg/24 hrs (3 yrs) 13.5 mg IUD IUD levonorgestrel 14 mcg/24 hrs (3 yrs) 13.5 mg intrauterine device Active 1 INSERT INTRA-UTER ONCE 1 March 26, 2021 2:36pm acetaminophen (TYLENOL EXTRA STRENGTH) 500 mg tablet Take 2 tablets by mouth every 6 hours as needed (Pain). FOR PAIN. ibuprofen (MOTRIN) 600 mg tablet Take 1 tablet by mouth every 6 hours as needed (pain). FOR PAIN. loratadine (CLARITIN) 10 mg tablet Take 1 tablet by mouth once daily as needed. FOR ALLERGY SYMPTOMS multivitamins(CHEWABLE MULTI VITAMIN TAB) Take one(1) tablet daily. No current facility-administered medications for this visit. Psychiatric Medication Issues: No change from previous appointment DIAGNOSIS: [place] I: Anxiety and Depression relationship problems r/o Borderline PD [place] II: deferred [place] III: see med record [place] IV: anxiety [place] V: 50-60 Treatment Modality/Interventions: Cognitive Behavioral Reassurance/Supportive Insight oriented Problem solving Goal setting Psychoeducation TREATMENT ASSESSMENT/PROGRESS: . Progressing satisfactorily. TREATMENT PLAN/GOALS: Continue in therapy focusing on self-care, improving communication, stress management, affect management, anxiety management, and self-esteem. Next appointment: as scheduled William Wesley, PhD [facility] 02-09-2022 History of Presen t illness Narrative This note was created using NoteWriter. Subjective Alexandra Cox is a 21 year old female. HPI Presents with sinus congestion and cough over the past 3 weeks. She denies recent fever. No vomiting or diarrhea. She has had pressure in her sinuses. She has had multiple people at work sick. She does have a sore throat. Review of Systems Constitutional: Positive for fatigue. Negative for fever. HENT: Positive for congestion, sinus pressure, sinus pain and sore throat. Respiratory: Positive for cough. Negative for shortness of breath. Cardiovascular: Negative. Gastrointestinal: Negative. Genitourinary: Negative. Musculoskeletal: Negative. All other systems reviewed and are negative. PAST MEDICAL HISTORY Diagnosis Date Acne Current Outpatient Medications Medication Sig Dispense Refill escitalopram oxalate (LEXAPRO) 10 mg tablet Take 1 tablet by mouth once daily. 90 tablet 3 montelukast (SINGULAIR) 10 mg tablet TAKE 1 TABLET BY MOUTH EVERYDAY AT BEDTIME 90 tablet 3 levonorgestrel (TIRSO) 14 mcg/24 hrs (3 yrs) 13.5 mg IUD IUD levonorgestrel 14 mcg/24 hrs (3 yrs) 13.5 mg intrauterine device Active 1 INSERT INTRA-UTER ONCE 1 March 26, 2021 2:36pm loratadine (CLARITIN) 10 mg tablet Take 1 tablet by mouth once daily as needed. FOR ALLERGY SYMPTOMS 0 multivitamins(CHEWABLE MULTI VITAMIN TAB) Take one(1) tablet daily. 0 predniSONE (DELTASONE) 20 mg tablet Take 2 tablets by mouth once daily for 5 days. 10 tablet 0 Yarzszetyqncfcb-Pkssnoswi-KJ (BROMFED DM) 2-30-10 mg/5 mL syrup Take 10 mL by mouth four times daily as needed. 200 mL 0 amoxicillin-clavulanic acid (AUGMENTIN) 875-125 mg per tablet Take 1 tablet by mouth twice daily for 7 days. 14 tablet 0 albuterol HFA (VENTOLIN HFA) 90 mcg/actuation inhaler Inhale 2 Puffs as instructed every 4 hours as needed for wheezing/shortness of breath. 18 g 2 acetaminophen (TYLENOL EXTRA STRENGTH) 500 mg tablet Take 2 tablets by mouth every 6 hours as needed (Pain). FOR PAIN. ibuprofen (MOTRIN) 600 mg tablet Take 1 tablet by mouth every 6 hours as needed (pain). FOR PAIN. No current facility-administered medications for this visit. PAST SURGICAL HISTORY Procedure Laterality Date PAST SURGICAL HISTORY OF 01/07/2020 Breast reduction surgery UNSPECIFIED ORAL SURGERY PROCEDURE, BY REPORT [facility] FAMILY HISTORY Problem Relation Age of Onset Hypertension Mother Blood Disease Father increased platelets. Hypertension Father No Known Problems Maternal Grandmother Asthma Paternal Grandmother Hypertension Other Breast Cancer Other maternal side Social History Tobacco Use Smoking status: Never Smokeless tobacco: Never Vaping Use Vaping Use: Never used Substance Use Topics Alcohol use: Yes Comment: rarely Drug use: No Objective BP 120/80 Pulse 79 Temp 36.9 C (98.5 F) Resp 18 Wt 78.5 kg (173 lb) LMP 04/23/2021 (Approximate) SpO2 99% BMI 27.31 kg/m Physical Exam Vitals reviewed. Constitutional: Appearance: Normal appearance. HENT: Head: Normocephalic and atraumatic. Right Ear: Tympanic membrane, ear canal and external ear normal. Left Ear: Tympanic membrane, ear canal and external ear normal. Nose: Right Sinus: Maxillary sinus tenderness present. Left Sinus: Maxillary sinus tenderness present. Cardiovascular: Rate and Rhythm: Normal rate and regular rhythm. Heart sounds: Normal heart sounds. Pulmonary: Effort: Pulmonary effort is normal. Breath sounds: Normal breath sounds. Musculoskeletal: Cervical back: Neck supple. Skin: General: Skin is warm and dry. Findings: No rash. Neurological: General: No focal deficit present. Mental Status: She is alert. Assessment and Plan ASSESSMENT/PLAN: 1. Acute maxillary sinusitis, recurrence not specified - ICD9: 461.0, ICD10: J01.00 - Will begin treatment with Augmentin 875 mg PO BID for 7 days - Supportive care with plenty of fluids, rest, and analgesia prn. - Follow up in 3-5 days if symptoms persist or worsen. Kym Melendez PA-C documented in this encounter [facility] 12-23-2021 History of Presen t illness Narrative CC: Patient presents with: Cough: Chest congestion x 3 days Patient said the cough seems to be getting significantly worse. HPI: Alexandra Cox is a 21 year old female who presents to the office with complaint of chest congestion, head congestion, cough, nonproductive, and sore throat for 8 days. Symptoms are worsening Associated symptoms includes cough. Denies headache, body aches, fever, nausea, vomiting , diarrhea, and said sore throat is almost gone. Treatments tried include nothing so far. with no relief of symptoms. Sick contacts: unknown. History of asthma, frequent episodes of bronchitis, chronic bronchitis, bronchiectasis or COPD: No Smoker: No Seasonal/environmental allergies: No The ROS is otherwise negative. The patient's pmh, medications, allergies, and past visits are reviewed. PHYSICAL EXAM: BP 118/78 Pulse 76 Temp 36.8 C (98.3 F) Resp 21 Wt 76.6 kg (168 lb 12.8 oz) LMP 04/23/2021 (Approximate) SpO2 97% BMI 26.65 kg/m General appearance: alert, cooperative, pleasant, in no acute distress Head: Normocephalic Eyes: EOM's intact, conjunctiva pink and moist, no icterus, sclera white, non-injected Ears: Right ear: External ear/canal- Normal, TM - clear with good landmarks. Left ear: External ear/canal- Normal, TM - clear with good landmarks Oropharynx:moist without lesions, No erythema, exudates patient does have enlarged tonsils but is follow with ENT for this. Heart: Negative. RRR without obvious murmur, gallop, or rubs. No ectopy. Lungs: clear to auscultation, without rales or wheeze, good air exchange PAST MEDICAL HISTORY Diagnosis Date Acne PAST SURGICAL HISTORY Procedure Laterality Date PAST SURGICAL HISTORY OF 01/07/2020 Breast reduction surgery UNSPECIFIED ORAL SURGERY PROCEDURE, BY REPORT [facility] ALLERGIES Clindamycin and Duricef [Cefadroxil] MEDICATIONS escitalopram oxalate (LEXAPRO) 10 mg tablet Take 1 tablet by mouth once daily. montelukast (SINGULAIR) 10 mg tablet TAKE 1 TABLET BY MOUTH EVERYDAY AT BEDTIME albuterol HFA (VENTOLIN HFA) 90 mcg/actuation inhaler Inhale 2 Puffs as instructed every 4 hours as needed for wheezing/shortness of breath. levonorgestrel (TIRSO) 14 mcg/24 hrs (3 yrs) 13.5 mg IUD IUD levonorgestrel 14 mcg/24 hrs (3 yrs) 13.5 mg intrauterine device Active 1 INSERT INTRA-UTER ONCE 1 March 26, 2021 2:36pm acetaminophen (TYLENOL EXTRA STRENGTH) 500 mg tablet Take 2 tablets by mouth every 6 hours as needed (Pain). FOR PAIN. ibuprofen (MOTRIN) 600 mg tablet Take 1 tablet by mouth every 6 hours as needed (pain). FOR PAIN. loratadine (CLARITIN) 10 mg tablet Take 1 tablet by mouth once daily as needed. FOR ALLERGY SYMPTOMS multivitamins(CHEWABLE MULTI VITAMIN TAB) Take one(1) tablet daily. FAMILY HISTORY Problem Relation Age of Onset Hypertension Mother Blood Disease Father increased platelets. Hypertension Father No Known Problems Maternal Grandmother Asthma Paternal Grandmother Hypertension Other Breast Cancer Other maternal side Social History Tobacco Use Smoking status: Never Smokeless tobacco: Never Vaping Use Vaping Use: Never used Substance Use Topics Alcohol use: Yes Comment: rarely Drug use: No ASSESSMENT/PLAN: 1. Acute cough - ICD9: 786.2, ICD10: R05.1 - XR CHEST 2V FRONTAL/LAT * * * * Physician Interpretation * * * * EXAMINATION: CHEST RADIOGRAPH (2 VIEW FRONTAL & LATERAL) CLINICAL HISTORY: Acute cough MQ: [id number] EXAM DATE/TIME: 12/23/2021 9:02 AM COMPARISON: 12/06/2021 RESULT: Lines, tubes, and devices: None. Lungs and pleura: No consolidation. No lung mass. No pleural effusion. No pneumothorax. Cardiomediastinal silhouette: Normal cardiomediastinal silhouette. Bones and soft tissues: Unremarkable. IMPRESSION IMPRESSION: No acute radiographic abnormality. Space Scheduler: NAVNEET Transcribe Date/Time: Dec 23 2021 9:10A Dictated by : CATHERINE SANCHEZ MD Doxycycline twice a day for 5 days prednisone daily for 5 days Prescription instructions reviewed with patient as applicable. Potential red flag symptoms discussed with the patient. Reviewed appropriate action plan to take if red flag symptoms occur. Patient agreeable to treatment plan. Laura Ortega APRN.CNP documented in this encounter [facility] 12-20-2021 History of Presen t illness Narrative Patient presents with: Sore Throat: Fever, KARIMI, congestion, cough x4 days HPI: Feeling allergies or URI for 7 days. She has had a bad sore throat since yesterday. Positive symptoms: Sore throat, Nasal Congestion, Rhinorrhea, Fever, Headache, Cough, Negative symptoms: Shortness of breath, Nausea, Vomiting, Diarrhea, MEDICATIONS: Current Outpatient Medications Medication Sig escitalopram oxalate (LEXAPRO) 10 mg tablet Take 1 tablet by mouth once daily. montelukast (SINGULAIR) 10 mg tablet TAKE 1 TABLET BY MOUTH EVERYDAY AT BEDTIME albuterol HFA (VENTOLIN HFA) 90 mcg/actuation inhaler Inhale 2 Puffs as instructed every 4 hours as needed for wheezing/shortness of breath. levonorgestrel (TIRSO) 14 mcg/24 hrs (3 yrs) 13.5 mg IUD IUD levonorgestrel 14 mcg/24 hrs (3 yrs) 13.5 mg intrauterine device Active 1 INSERT INTRA-UTER ONCE 1 March 26, 2021 2:36pm acetaminophen (TYLENOL EXTRA STRENGTH) 500 mg tablet Take 2 tablets by mouth every 6 hours as needed (Pain). FOR PAIN. ibuprofen (MOTRIN) 600 mg tablet Take 1 tablet by mouth every 6 hours as needed (pain). FOR PAIN. loratadine (CLARITIN) 10 mg tablet Take 1 tablet by mouth once daily as needed. FOR ALLERGY SYMPTOMS multivitamins(CHEWABLE MULTI VITAMIN TAB) Take one(1) tablet daily. No current facility-administered medications for this visit. ALLERGIES: ALLERGIES Allergen Reactions Clindamycin Rash ?might have been the morphine since was given at the same time? Duricef [Cefadroxil] Hives VITALS: BP 116/78 Pulse 67 Temp 36.6 C (97.9 F) Resp 18 Wt 76.7 kg (169 lb) LMP 04/23/2021 (Approximate) SpO2 99% BMI 26.68 kg/m PHYSICAL EXAM: GEN: mildly ill appearing HEENT: PERRL, EOMI, conjunctiva clear Ears: proximal cerumen right canal. LTM without erythema, bulge, or effusion Sinuses: non-tender frontal sinus, non-tender maxillary sinuses Throat: moist mucous membranes, tonsillar erythema and edema, no exudate Neck: supple, no thyromegaly, no lymphadenopathy HEART: regular rate and rhythm, no murmurs LUNGS: clear to auscultation, no wheezes or crackles, no increased WOB ASSESSMENT/PLAN: 1. Sore throat - ICD9: 462, ICD10: J02.9 - suspect viral URI or seasonal allergies, possible new illness since yesterday. differential includes COVID-19, strep pharyngitis. - STREP A MOLECULAR (POC) - negative. Declines COVID test. - Discussed supportive care treatment with rest, cold medicine, and analgesia. - Red flags to seek further treatment include chest pain, shortness of breath, and lethargy; in the ER if severe. Junior Liao MD documented in this encounter [facility] 12-06-2021 History of Presen t illness Narrative CC: Patient presents with: Recheck: L rib pain x few weeks, low BP HPI Alexandra Cox is a 20 year old female who presents today for left rib pain and dizziness. Has sharp left rib pain with deep breath intermittently. Denies any injury, recent fever, cough, shortness of breath, or recent infection. Works out regularly without any increase or change. Pain last night was more intense and patient unable to take a deep breath because of this so took her albuterol inhaler which does not feel it helped. Does have asthma but does not use her albuterol inhaler often. Had a breast reduction over a year ago so area is tender so unsure if area is tender. Has also had dizziness that is worsening over the past few weeks. Mother had a blood pressure cuff so patient checked BP and it was 94/44. Dizziness is worse upon standing and has to stand for a moment and it will self resolve. Has been on accutane for the last few months prescribed by dermatology for acne. Hopefully will be stopping this next week. Patient states she eats 3 meals a day with snacks and tries to drink water throughout the day. Does not drink any caffiene. REVIEW OF SYSTEMS General: no fevers, no chills, no night sweats, no recurrent infections, no change in appetite, no change in energy, and no significant changes in weight HEENT: no frequent or significant headaches, no changes in hearing, no visual changes, no nose bleeds, no sinus or nasal problems Respiratory: no cough, no wheezing, no shortness of breath, no hemoptysis Cardiovascular: no chest pressure, no palpitations, and no swelling GI: No nausea, vomiting, or diarrhea Endocrine: no fatigue, no weight gain, no weight loss, no cold intolerance, no heat intolerance, no polyuria, no polyphagia, and no polydipsia Neurologic: No headache, weakness, numbness, tingling, syncope. PAST MEDICAL HISTORY Diagnosis Date Acne PAST SURGICAL HISTORY Procedure Laterality Date PAST SURGICAL HISTORY OF 01/07/2020 Breast reduction surgery UNSPECIFIED ORAL SURGERY PROCEDURE, BY REPORT [place] [facility] ALLERGIES Clindamycin and Duricef [Cefadroxil] MEDICATIONS escitalopram oxalate (LEXAPRO) 10 mg tablet Take 1 tablet by mouth once daily. montelukast (SINGULAIR) 10 mg tablet TAKE 1 TABLET BY MOUTH EVERYDAY AT BEDTIME albuterol HFA (VENTOLIN HFA) 90 mcg/actuation inhaler Inhale 2 Puffs as instructed every 4 hours as needed for wheezing/shortness of breath. levonorgestrel (TIRSO) 14 mcg/24 hrs (3 yrs) 13.5 mg IUD IUD levonorgestrel 14 mcg/24 hrs (3 yrs) 13.5 mg intrauterine device Active 1 INSERT INTRA-UTER ONCE March 26, 2021 2:36pm acetaminophen (TYLENOL EXTRA STRENGTH) 500 mg tablet Take 2 tablets by mouth every 6 hours as needed (Pain). FOR PAIN. ibuprofen (MOTRIN) 600 mg tablet Take 1 tablet by mouth every 6 hours as needed (pain). FOR PAIN. loratadine (CLARITIN) 10 mg tablet Take 1 tablet by mouth once daily as needed. FOR ALLERGY SYMPTOMS multivitamins(CHEWABLE MULTI VITAMIN TAB) Take one(1) tablet daily. FAMILY HISTORY Problem Relation Age of Onset Hypertension Mother Blood Disease Father increased platelets. Hypertension Father No Known Problems Maternal Grandmother Asthma Paternal Grandmother Hypertension Other Breast Cancer Other maternal side Social History Tobacco Use Smoking status: Never Smokeless tobacco: Never Vaping Use Vaping Use: Never used Substance Use Topics Alcohol use: Yes Comment: rarely Drug use: No PHYSICAL EXAM BP 126/74 Pulse 60 Resp 16 Wt 76.7 kg (169 lb) LMP 04/23/2021 (Approximate) BMI 26.68 kg/m General Appearance: well appearing, in no acute distress, alert Skin: Skin color, texture, turgor normal for age; Eyes: conjunctiva pink and moist, no icterus, sclera white, non-injected Neck: Thyroid normal size and symmetric without palpable nodules, No adenopathy Lymph nodes: No cervical lymphadenopathy and No supraclavicular lymphadenopathy Lungs: Lungs clear to auscultation. No wheezing, rhonchi, rales. No tenderness with palpation of left rib cage Heart: RRR without murmur, gallop, or rubs. No ectopy Abdomen: Abdomen soft, non-tender. Bowel sounds normal. No masses, organomegaly bUe Extremities: No deformities, edema, skin discoloration, clubbing or cyanosis. Good capillary refill. Neurological: Gait normal. Diks hallpike negative.Sensation grossly intact. Health maintenance reviewed with patient: COVID-19 VACCINE(1) Never done PNEUMOCOCCAL(1 - PCV) due on 12/14/2005 ASTHMA CONTROL TEST due on 09/11/2020 INFLUENZA(1) due on 10/28/2021 SPIROMETRY due on 05/05/2022 HPV VACCINE(1 - 2-dose series) due on 05/05/2022 MENINGOCOCCAL B: Consider based on risk(1 of 2 - Risk Bexsero 2-dose series) due on 05/05/2022 HEPATITIS C SCREENING due on 05/05/2022 HIV SCREENING due on 05/05/2022 GC (GONORRHEA) SCREENING (18-24) due on 01/26/2022 CHLAMYDIA SCREENING (18-24) due on 01/26/2022 ASTHMA ACTION PLAN due on 02/02/2022 DTAP,TDAP,TD(7 - Td or Tdap) due on 08/24/2022 ANNUAL PCP TEAM CHRONIC DISEASE VISIT due on 09/21/2022 PAP TESTING due on 01/27/2024 HEPATITIS B Completed DATA REVIEWED: No new labs ASSESSMENT/PLAN: 1. Dizziness - ICD9: 780.4, ICD10: R42 (primary diagnosis) - possibly related to accutane therapy - orthostatic and diks hallpike negative. - XR CHEST 2V FRONTAL/LAT - COMP METABOLIC PANEL - CBC + DIFF - TSH BLD - HGB A1C - follow up and treatment depending on results 2. Rib pain on left side - ICD9: 786.50, ICD10: R07.81 Atypical chest pain, symptoms are not consistent with cardiac ischemia due to nonexertional nature of symptom and pleuritic nature of pain possible etiology include - XR CHEST 2V FRONTAL/LAT 3. Chest pain on breathing - ICD9: 786.52, ICD10: R07.1 - possibly inflammation causing the pain , but with accutane on adverse reactions can cause thrombosis, this needs further evaluated. - XR CHEST 2V FRONTAL/LAT - D-DIMER 4. On Accutane therapy - ICD9: V58.69, ICD10: Z79.899 - COMP METABOLIC PANEL - HGB A1C - D-DIMER 5. Encounter for screening for diabetes mellitus - ICD9: V77.1, ICD10: Z13.1 - per patient she has a large family history of diabetes and never been evaluated - realizes accutane can increase her blood sugar and wondering it this might cause the dizziness. - HGB A1C 6. Family history of diabetes mellitus - ICD9: V18.0, ICD10: Z83.3 - COMP METABOLIC PANEL - HGB A1C Prescription instructions reviewed with patient as applicable. Potential red flag symptoms discussed with the patient. Reviewed appropriate action plan to take if red flag symptoms occur. Patient agreeable to treatment plan. Richelle Leblanc APRN.CASEY documented in this encounter [facility] 10-19-2021 History of Presen t illness Narrative Patient presents for Lactose Intolerance testing. Baseline lab levels completed at lab and Lactose (Lactose Monohydrate Powder 50grams in 400mL water) administered to patient at 9:53am. Tolerated well. LOT # [id number] EXP 11/13/2022 Mahi Finney LPN documented in this encounter [facility] 10-11-2021 Miscellaneous Notes Anna with Dr. Paige's office (dermatology) calling to request patient's recent HCG QUAL UR test result be faxed to [phone]. This is for patient's adjustment of acne medication. Result faxed as requested. Karol Aguirre RN documented in this encounter [facility] 10-09-2021 Miscellaneous Notes Patient returned call and went over notes from Dr Perdomo with understanding. Aware rx to pharmacy. Phoned patient and left message to return call and ask to speak to a nurse. The following approved medication requests have been transmitted electronically. Requested Prescriptions Signed Prescriptions Disp Refills fluconazole (DIFLUCAN) 150 mg tablet 1 tablet 0 Sig: Take 1 tablet by mouth one time only for 1 dose. Authorizing Provider: AUGUSTIN PERDOMO MD Has tolerated in the past so does not look like had adverse interaction with her Lexapro. If were to have more frequent episodes, recommend follow up with [facility] for further evaluation and treatment as indicated. Patient calls and states that she woke up this morning and she thinks that she has a yeast infection. Patient states that she has some itchiness. Patient asking if Diflucan prescription [facility]? Please review and advise, Puja Hallman RN documented in this encounter [facility] 10-07-2021 Miscellaneous Notes Called pt and review the lactose lab draw and drink. This has been arranged for 10/19/21 for 945 am with labs an nurse schedule. Pt is aware she will be here for over an hour with multiple brood draw. Got it. Did not know needed to be coordinated with a nurse visit. Filed order Lab says the 30 minute lactose was not completed. This needs to be scheduled with a nurse visit along with the lab. It needs to be several days out to give the nurse time to order the drink. If you want this please reorder. (Other lactose will be credited) Checking with lab. My chart message to pt with pcp's response. There is a lactose 30 minute test still in the computer--was she supposed to do this too as part of the lactose intolerance work up? Noted that the fasting test was normal. Since eating foods with gluten or wheat and lactose cause her symptoms,she should avoid those foods for now and see if that takes care of most of her symptoms. Even if she does not have celiac or severe lactose intolerance, her system might not be able to digest these foods well. I have several patients who are gluten sensitive even if they do not have full blown celiac and have to avoid gluten (they can have a little once in a while but avoid it for the most part because they don't feel well when they get too much). Might also just need to limit milk products (not have to cut it all out). And might need to choose organic milk products in case sensitive to milk that comes from other sources of milk. Can refer to GI if needs to pursue further evaluation and treatment if above measures not adequate. If she is starting to have any problems with diarrhea or constipation, we should address those issues too. Patient notified of labs , she states she does not understand what could be going on and if there is anyother tests that can be done as she continues to have issues with bloating after eating/when waking up IGA can be seen in inflammatory conditions. Test is negative for Celiac. Can recheck IgA level down the road to see if remains elevated. Would see if any signs or symptoms of inflammation (arthritis, allergies, etc) Patient calling asking for lab results done end of August. Aware PCP was out of office last week. Please advise Component Latest Ref Rng & Units 09/24/2021 Transglutaminase Ab, IgA <20 Units 7 Transglutaminase IgA Qualitative Negative, Test not Indicated Negative Interpretation (Celiac Screen) No serological evidence of celiac disease, however, if celiac disease is clinically suspected and patient is not on gluten-free diet, histological diagnosis may be considered. HLA testing may help with risk assessment. Gliadin Ab, IgA <20 Units 7 Gliad Deamidated IgA Qual Negative, Test not Indicated Negative IgA 70 - 400 mg/dL 515 (H) Lactose, Fasting 74 - 99 mg/dL 98 Patient is asking about recent results and what it means with a high IGA? documented in this encounter [facility] 09-21-2021 History of Presen t illness Narrative This note was created using [employer]. Subjective Alexandra Cox is a 20 year old female. Patient presents with: Acute Visit SUBJECTIVE: Alexandra Cox is a 20 year old year old lady here today for appointment for review of medical conditions. Ice cream and bread--gets super bloated and hard to take a deep breath. No diarrhea. No constipation, no straining. Can get increased belching or flatulence Started 3 to 4 months ago. Getting worse the past 3 to 4 months. No viral gastroenteritis recently No unexplained weight loss. Also gets sleepy after eating--this started 1 to 2 months. Ovarian cyst issue noted now. Accutane was started February. Moving Lexapro from HS to AM incase contributing to insomnia. Dad has lactose intolerance. PAST MEDICAL HISTORY Diagnosis Date Acne Current Outpatient Medications Medication Sig montelukast (SINGULAIR) 10 mg tablet TAKE 1 TABLET BY MOUTH EVERYDAY AT BEDTIME albuterol HFA (VENTOLIN HFA) 90 mcg/actuation inhaler Inhale 2 Puffs as instructed every 4 hours as needed for wheezing/shortness of breath. levonorgestrel (TIRSO) 14 mcg/24 hrs (3 yrs) 13.5 mg IUD IUD levonorgestrel 14 mcg/24 hrs (3 yrs) 13.5 mg intrauterine device Active 1 INSERT INTRA-UTER ONCE 1 March 26, 2021 2:36pm escitalopram oxalate (LEXAPRO) 20 mg tablet Take 1 tablet by mouth once daily. acetaminophen (TYLENOL EXTRA STRENGTH) 500 mg tablet Take 2 tablets by mouth every 6 hours as needed (Pain). FOR PAIN. ibuprofen (MOTRIN) 600 mg tablet Take 1 tablet by mouth every 6 hours as needed (pain). FOR PAIN. loratadine (CLARITIN) 10 mg tablet Take 1 tablet by mouth once daily as needed. FOR ALLERGY SYMPTOMS multivitamins(CHEWABLE MULTI VITAMIN TAB) Take one(1) tablet daily. predniSONE (DELTASONE) 10 mg tablet (Patient not taking: Reported on 08/17/2021 ) lamoTRIgine (LAMICTAL) 25 mg tablet Take 1 tablet by mouth every evening for 14 days, THEN 2 tablets every evening for 14 days. (Patient not taking: Reported on 05/05/2021) ondansetron orally disintegrating (ZOFRAN ODT) 4 mg disintegrating tablet Take 1 tablet by mouth every 6 hours as needed for nausea/vomiting. (Patient not taking: Reported on 08/17/2021 ) escitalopram oxalate (LEXAPRO) 20 mg tablet Take 1 tablet by mouth once daily. No current facility-administered medications for this visit. Review of Systems Objective BP 116/72 Pulse 64 Wt 76.7 kg (169 lb) LMP 04/23/2021 (Approximate) SpO2 97% BMI 26.68 kg/m Physical Exam Constitutional: Appearance: Normal appearance. HENT: Head: Normocephalic. Eyes: Conjunctiva/sclera: Conjunctivae normal. Cardiovascular: Rate and Rhythm: Normal rate and regular rhythm. Heart sounds: Normal heart sounds. Pulmonary: Effort: Pulmonary effort is normal. Breath sounds: Normal breath sounds. Abdominal: General: Abdomen is flat. Bowel sounds are normal. There is no distension. Palpations: Abdomen is soft. Tenderness: There is no abdominal tenderness. There is no guarding or rebound. Skin: General: Skin is warm and dry. Neurological: General: No focal deficit present. Mental Status: She is alert and oriented to person, place, and time. Psychiatric: Mood and Affect: Mood normal. Behavior: Behavior normal. Thought Content: Thought content normal. Judgment: Judgment normal. Reviewed prior labs. Also Pelvic US. Had repeat done at [facility] . Most recent June 2021 Assessment and Plan ASSESSMENT/PLAN: 1. Postprandial bloating - ICD9: 787.3, ICD10: R14.0 (primary diagnosis) Discussed management of gas and bloating with simethicone. Avoid gluten, wheat and lactose since cause symptoms. Can try Lactaid with milk products to see if helps. Further evaluation and treatment as indicated. - CELIAC SCREEN WITH REFLEX - LACTOSE TOLERANCE 2. Anxiety and depression - ICD9: 300.00, 311, ICD10: F41.9, F32.A Moved to and taking lower dose. Further evaluation and treatment as indicated. - ESCITALOPRAM 10 MG TABLET Augustin Perdomo MD documented in this encounter [facility] 09-09-2021 Miscellaneous Notes Pt called and states she stopped in to have lab work done earlier for Dr. Aman Paige. Pt is on Accutane medication. Pt asked to have the results faxed to Dr. Aman Paige [phone]. Done. documented in this encounter [facility] 08-17-2021 Miscellaneous Notes Addended by: LAURA ORTEGA on: 08/17/2021 10:52 AM Modules accepted: Orders documented in this encounter [facility] 08-17-2021 History of Presen t illness Narrative CC: Patient presents with: Sore Throat: bodyaches and fever x 2 days HPI: Alexandra Cox is a 20 year old female who presents to the office with complaint of sore throat and fever for a few days. Symptoms are worsening Associated symptoms includes sore throat bodyaches. Denies nausea, vomiting and diarrhea. Treatments tried include nothing so far. with no relief of symptoms. Sick contacts: unknown. History of asthma, frequent episodes of bronchitis, chronic bronchitis, bronchiectasis or COPD: No Smoker: No Seasonal/environmental allergies: No The ROS is otherwise negative. The patient's pmh, medications, allergies, and past visits are reviewed. PHYSICAL EXAM: BP 112/60 Pulse 92 Temp 36.3 C (97.3 F) Resp 16 Wt 75.8 kg (167 lb) LMP 04/23/2021 (Approximate) SpO2 99% BMI 26.37 kg/m General appearance: alert, cooperative, pleasant, in no acute distress Head: Normocephalic Eyes: EOM's intact, conjunctiva pink and moist, no icterus, sclera white, non-injected Ears: Right ear: External ear/canal- Normal, TM - clear with good landmarks. Left ear: External ear/canal- Normal, TM - clear with good landmarks Oropharynx:moderate erythema, with exudates present Neck:supple and no adenopathy Heart: Negative. RRR without obvious murmur, gallop, or rubs. No ectopy. Lungs: clear to auscultation, without rales or wheeze, good air exchange PAST MEDICAL HISTORY Diagnosis Date Acne PAST SURGICAL HISTORY Procedure Laterality Date PAST SURGICAL HISTORY OF 01/07/2020 Breast reduction surgery UNSPECIFIED ORAL SURGERY PROCEDURE, BY REPORT [place] [facility] ALLERGIES Clindamycin and Duricef [Cefadroxil] MEDICATIONS montelukast (SINGULAIR) 10 mg tablet TAKE 1 TABLET BY MOUTH EVERYDAY AT BEDTIME albuterol HFA (VENTOLIN HFA) 90 mcg/actuation inhaler Inhale 2 Puffs as instructed every 4 hours as needed for wheezing/shortness of breath. levonorgestrel (TIRSO) 14 mcg/24 hrs (3 yrs) 13.5 mg IUD IUD levonorgestrel 14 mcg/24 hrs (3 yrs) 13.5 mg intrauterine device Active 1 INSERT INTRA-UTER ONCE March 26, 2021 2:36pm acetaminophen (TYLENOL EXTRA STRENGTH) 500 mg tablet Take 2 tablets by mouth every 6 hours as needed (Pain). FOR PAIN. ibuprofen (MOTRIN) 600 mg tablet Take 1 tablet by mouth every 6 hours as needed (pain). FOR PAIN. escitalopram oxalate (LEXAPRO) 20 mg tablet Take 1 tablet by mouth once daily. loratadine (CLARITIN) 10 mg tablet Take 1 tablet by mouth once daily as needed. FOR ALLERGY SYMPTOMS multivitamins(CHEWABLE MULTI VITAMIN TAB) Take one(1) tablet daily. predniSONE (DELTASONE) 10 mg tablet escitalopram oxalate (LEXAPRO) 20 mg tablet Take 1 tablet by mouth once daily. lamoTRIgine (LAMICTAL) 25 mg tablet Take 1 tablet by mouth every evening for 14 days, THEN 2 tablets every evening for 14 days. ondansetron orally disintegrating (ZOFRAN ODT) 4 mg disintegrating tablet Take 1 tablet by mouth every 6 hours as needed for nausea/vomiting. FAMILY HISTORY Problem Relation Age of Onset Hypertension Mother Blood Disease Father increased platelets. Hypertension Father No Known Problems Maternal Grandmother Asthma Paternal Grandmother Hypertension Other Breast Cancer Other maternal side Social History Tobacco Use Smoking status: Never Smoker Smokeless tobacco: Never Used Vaping Use Vaping Use: Never used Substance Use Topics Alcohol use: Yes Comment: rarely Drug use: No ASSESSMENT/PLAN: 1. Sore throat - ICD9: 462, ICD10: J02.9 - STREP A MOLECULAR (POC) - negative [place] lab work ordered for Monday Patient did say this happened about a month ago and was just tonsillitis. Potential red flag symptoms discussed with the patient. Reviewed appropriate action plan to take if red flag symptoms occur. Patient agreeable to treatment plan. If the mono test is negative she will follow up with PCP and get into ENT for possible work up. patient called in and wanted antibiotics informed at this time not warranted with two days of symptoms. concerned with it being the second time this happened and wants an ENT consult today. Placed order. Laura Ortega APRN.CNP documented in this encounter [facility] 08-12-2021 Miscellaneous Notes Phoned patient and went over notes from Dr Perdomo with understanding. Assisted with transfer to space scheduler to get Gene Ortiz appt set up. Patient said work has been so busy difficult to get appt scheduled. Patient was working with Dr. Wesley and Yudy Gardner--recommend she follow up with them since they were trying to help with med management, etc. Patient last saw me February so needs follow up--September appointment was canceled and not rescheduled. Should be seen to discuss medication management whether by Dr. Murillo or me. Patient calling she is taking generic Lexapro 20 mg one daily and wants to stop taking the medication. She knows she can not just stop taking the medication. Patient said she just got rx refilled. Patient said not sure if it is working, she said she takes several other medications also. Please advise documented in this encounter [facility] 06-17-2021 Miscellaneous Notes Last seen pcp 03/15/21 Next appt is arranged for September. Patient has been identified by name and date of : Yes Pending Prescriptions Disp Refills MONTELUKAST 10 MG TABLET 30 tablet 5 Sig: TAKE 1 TABLET BY MOUTH EVERYDAY AT BEDTIME VICTOR MANUEL: No RX INSTRUCTIONS: insurance requesting 90 day supply Patient aware RX will be sent to pharmacy. No need to notify patient. Maribel Khan documented in this encounter [facility] 06-02-[address];ease fax lab results from 06/[address] Paige's office at [phone] documented in this encounter [facility] 05-28-2021 Miscellaneous Notes Patient has been identified by name and date of : Yes Patient phones for refill(s): Pending Prescriptions Disp Refills ALBUTEROL SULFATE HFA 90 MCG/ACTUATION AEROSOL INHALER 18 g 2 Sig: Inhale 2 Puffs as instructed every 4 hours as needed for wheezing/shortness of breath. VICTOR MANUEL: No Date of last office visit in primary care: 03/15/2021, has appt 09/28/2021 Last 2 Encounter Wt Readings: Date: Wt: 05/19/2021 77.9 kg (171 lb 12.8 oz) 05/05/2021 76.2 kg (168 lb) Previous labs/tests for medication: Not applicable Please advise. Thank you. Kaylin Veloz LPN Patient said she has not needed inhaler until now. documented in this encounter [facility] 03-16-2021 Miscellaneous Notes Please assist with scheduling Consult to Behavioral health (Dr. William wesley) and 6 month follow-up with Dr. 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 Postprandial bloating Flatulence, eructation, and gas pain documented in this [facility] Diagnosis Dizziness- Primary Dizziness and giddiness Rib pain on left side Chest pain, unspecified Chest pain on breathing Painful respiration On Accutane therapy Encounter for long-term (current) use of other medications Encounter for screening for diabetes mellitus Screening for diabetes mellitus Family history of diabetes mellitus [facility] Diagnosis Sore throat- Primary Acute pharyngitis [facility] Diagnosis Acute cough- Primary [facility]* Diagnosis Acute maxillary sinusitis, recurrence not specified- Primary [facility] Diagnosis Annual physical exam- Primary Routine general medical examination at a health care facility Anxiety and depression Dysthymic disorder Mild intermittent asthma, uncomplicated Unspecified asthma Screening for STD (sexually transmitted disease) Screening examination for venereal disease documented [facility] this [facility] Diagnosis Yeast infection- Primary Candidiasis of unspecified site documented [facility] this [facility] Diagnosis Strep pharyngitis- Primary Streptococcal sore throat Sore throat Acute ph[facility]itis [facility] Diagnosis Lactose intolerance- Primary Intestinal disaccharidase deficiencies and disaccharide malabsorption documented [facility] this [facility] Diagnosis Strep pharyngitis- Primary Streptococcal sore throat [facility] Diagnosis Itching- Primary Unspecified pruritic disorder documented [facility] this [facility] Diagnosis Sore throat- Primary Acute pharyngitis Bilateral impacted cerumen Impacted cerumen Acute otitis media, left Unspecified otitis media documented [facility] this [facility] Diagnosis Viral sinusitis- Primary Unspecified sinusitis (chronic) documented in this encounter [facility] Summary Purpose Family History No Family History Records FoundNo Family History Records Found Advance Directives No Advanced Directives Records FoundNo Advanced Directives Records Found Reason for Referral Specialty Diagnoses / Procedures Referred By Zuleima menon Referred To Contact Ent - Otolaryngology Diagnoses Sore throat Procedures CONSULT TO ENT OFFICE/OUTPATIENT [facility] 60-74 MINUTES Laura Ortega APRN.[employer]EM[employer]PER[employer] [address] [place] [address] Referral ID Status Reason Start Date Expiration Date Visits Requested Visits Authorized [id number] Pending Review PCP Requested Referral 08/17/2021 08/17/2022 1 1 Specialty Diagnoses / Procedures Referred By Contac t Referred To Contact Gastroenterology Diagnoses Lactose intolerance Procedures CONSULT TO GASTROENTEROLOGY OFFICE/OUTPATIENT [facility] 60-74 MINUTES Yulia Bruce APRN.INDIVIDUAL PENSION CONSULTANT [address] [place] [address] Referral ID Status Reason Start Date Expiration Date Visits Requested Visits Authorized [id number] Pending Review PCP Requested Referral 10/07/2022 10/07/2023 1 1 Specialty Diagnoses / Procedures Referred By Contac t Referred To Contact Ent - Otolaryngology Diagnoses Strep pharyngitis Procedures CONSULT TO ENT OFFICE/OUTPATIENT [facility] MDM 60-74 MINUTES Neelima Samuels APRN.[employer]ONEM[employer] SUPERVISOR [address] [place] [address] Referral ID Status Reason Start Date Expiration Date Visits Requested Visits Authorized [id number] Pending Review PCP Requested Referral 10/30/2022 10/30/2023 1 1 Health Concerns Infection Onset Date Last Indicated Resolved Time COVID-19 Rule-Out 12/28/2022 12/28/2022 Additional Source Comments INFORMATION SOURCE (unrecogn ized section and content) DATE CREATED AUTHOR AUTHOR'S ORGANIZ ATION 04/03/[address] [facility] Source Comments (unrecognize d section and content) In the event this informatio n is protected by the Federal Confidentiality of Alcohol and Drug Abuse Patient Records regulations: The Federal rules restrict any use of the information to criminally investigate or prosecute any alcohol or drug abuse patient.[facility] the event this information is protected by the Federal Confidentiality of Alcohol and Drug Abuse Patient Records regulations: The Federal rules restrict any use of the information to criminally investigate or prosecute any alcohol or drug abuse patient.[facility] the event this information is protected by the Federal Confidentiality of Alcohol and Drug Abuse Patient Records regulations: The Federal rules restrict any use of the information to criminally investigate or prosecute any alcohol or drug abuse patient.[facility] the event this information is protected by the Federal Confidentiality of Alcohol and Drug Abuse Patient Records regulations: The Federal rules restrict any use of the information to criminally investigate or prosecute any alcohol or drug abuse patient.[facility] the event this information is protected by the Federal Confidentiality of Alcohol and Drug Abuse Patient Records regulations: The Federal rules restrict any use of the information to criminally investigate or prosecute any alcohol or drug abuse patient.[facility] Center[facility] the event this information is protected by the Federal Confidentiality of Alcohol and Drug Abuse Patient Records regulations: The Federal rules restrict any use of the information to criminally investigate or prosecute any alcohol or drug abuse patient.[facility] CenterIn the event this information is protected by the Federal Confidentiality of Alcohol and Drug Abuse Patient Records regulations: The Federal rules restrict any use of the information to criminally investigate or prosecute any alcohol or drug abuse patient.[facility] CenterIn the event this information is protected by the Federal Confidentiality of Alcohol and Drug Abuse Patient Records regulations: The Federal rules restrict any use of the information to criminally investigate or prosecute any alcohol or drug abuse patient.[facility] CenterIn the event this information is protected by the Federal Confidentiality of Alcohol and Drug Abuse Patient Records regulations: The Federal rules restrict any use of the information to criminally investigate or prosecute any alcohol or drug abuse patient.[facility] Center[facility] the event this information is protected by the Federal Confidentiality of Alcohol and Drug Abuse Patient Records regulations: The Federal rules restrict any use of the information to criminally investigate or prosecute any alcohol or drug abuse patient.[facility] CenterIn the event this information is protected by the Federal Confidentiality of Alcohol and Drug Abuse Patient Records regulations: The Federal rules restrict any use of the information to criminally investigate or prosecute any alcohol or drug abuse patient.[facility] Center[facility] the event this information is protected by the Federal Confidentiality of Alcohol and Drug Abuse Patient Records regulations: The Federal rules restrict any use of the information to criminally investigate or prosecute any alcohol or drug abuse patient.[facility] CenterIn the event this information is protected by the Federal Confidentiality of Alcohol and Drug Abuse Patient Records regulations: The Federal rules restrict any use of the information to criminally investigate or prosecute any alcohol or drug abuse patient.[facility] Center[facility] the event this information is protected by the Federal Confidentiality of Alcohol and Drug Abuse Patient Records regulations: The Federal rules restrict any use of the information to criminally investigate or prosecute any alcohol or drug abuse patient.[facility] CenterIn the event this information is protected by the Federal Confidentiality of Alcohol and Drug Abuse Patient Records regulations: The Federal rules restrict any use of the information to criminally investigate or prosecute any alcohol or drug abuse patient.[facility] CenterIn the event this information is protected by the Federal Confidentiality of Alcohol and Drug Abuse Patient Records regulations: The Federal rules restrict any use of the information to criminally investigate or prosecute any alcohol or drug abuse patient.[facility] CenterIn the event this information is protected by the Federal Confidentiality of Alcohol and Drug Abuse Patient Records regulations: The Federal rules restrict any use of the information to criminally investigate or prosecute any alcohol or drug abuse patient.[facility] CenterIn the event this information is protected by the Federal Confidentiality of Alcohol and Drug Abuse Patient Records regulations: The Federal rules restrict any use of the information to criminally investigate or prosecute any alcohol or drug abuse patient.[facility] CenterIn the event this information is protected by the Federal Confidentiality of Alcohol and Drug Abuse Patient Records regulations: The Federal rules restrict any use of the information to criminally investigate or prosecute any alcohol or drug abuse patient.[facility] CenterIn the event this information is protected by the Federal Confidentiality of Alcohol and Drug Abuse Patient Records regulations: The Federal rules restrict any use of the information to criminally investigate or prosecute any alcohol or drug abuse patient.[facility] CenterIn the event this information is protected by the Federal Confidentiality of Alcohol and Drug Abuse Patient Records regulations: The Federal rules restrict any use of the information to criminally investigate or prosecute any alcohol or drug abuse patient.[facility] CenterIn the event this information is protected by the Federal Confidentiality of Alcohol and Drug Abuse Patient Records regulations: The Federal rules restrict any use of the information to criminally investigate or prosecute any alcohol or drug abuse patient.[facility] CenterIn the event this information is protected by the Federal Confidentiality of Alcohol and Drug Abuse Patient Records regulations: The Federal rules restrict any use of the information to criminally investigate or prosecute any alcohol or drug abuse patient.[facility] CenterIn the event this information is protected by the Federal Confidentiality of Alcohol and Drug Abuse Patient Records regulations: The Federal rules restrict any use of the information to criminally investigate or prosecute any alcohol or drug abuse patient.[facility] CenterIn the event this information is protected by the Federal Confidentiality of Alcohol and Drug Abuse Patient Records regulations: The Federal rules restrict any use of the information to criminally investigate or prosecute any alcohol or drug abuse patient.[facility] CenterIn the event this information is protected by the Federal Confidentiality of Alcohol and Drug Abuse Patient Records regulations: The Federal rules restrict any use of the information to criminally investigate or prosecute any alcohol or drug abuse patient.[facility] CenterIn the event this information is protected by the Federal Confidentiality of Alcohol and Drug Abuse Patient Records regulations: The Federal rules restrict any use of the information to criminally investigate or prosecute any alcohol or drug abuse patient.[facility] CenterIn the event this information is protected by the Federal Confidentiality of Alcohol and Drug Abuse Patient Records regulations: The Federal rules restrict any use of the information to criminally investigate or prosecute any alcohol or drug abuse patient.[facility] CenterIn the event this information is protected by the Federal Confidentiality of Alcohol and Drug Abuse Patient Records regulations: The Federal rules restrict any use of the information to criminally investigate or prosecute any alcohol or drug abuse patient.[facility] CenterIn the event this information is protected by the Federal Confidentiality of Alcohol and Drug Abuse Patient Records regulations: The Federal rules restrict any use of the information to criminally investigate or prosecute any alcohol or drug abuse patient.[facility] CenterIn the event this information is protected by the Federal Confidentiality of Alcohol and Drug Abuse Patient Records regulations: The Federal rules restrict any use of the information to criminally investigate or prosecute any alcohol or drug abuse patient.[facility] Reason for Visit (unrecogniz ed section and content) Reason Comments Results, Lab Reason Onset Date Comments Refill Request 06/17/2021 Reason Comments Appointment Reason Comments Medication Question Reason Comments Sore Throat bodyaches and fever x 2 days Reason Comments fax lab results to outside Reason Comments Acute Visit Reason Comments Patient Question Reason Comments Patient Request Reason Comments Lactose Tolerance Test Reason Comments Recheck L rib pain x few wee ks, low BP Reason Comments Sore Throat Fever, KARIMI, congestio n, cough x4 days Reason Comments Cough Chest congestion x 3 days Reason Comments Head Congestion Sinus pain and press ure, R ear pain x3 weeks Reason Comments Physical Annual Physical Reason Comments Medication Problem Reason Comments Results Reason Comments Follow Up Reason Comments Sore Throat X2 days Reason Comments Sore Throat X1 day, recent strep Reason Comments Itching All over x 3 days Reason Comments Sore Throat right ear pain and f atigue x 1 day Reason Comments Sinus Problem Possible sinus infec tion, teeth pain, pressure in head, drainage, cough x 5 days Reason Comments Covid19 Concern Care Teams (unrecognized sec tion and content) Doctor Of Osteopathy Relationship Specialty Start Date End Date Augustin Perdomo MD [facility] [place] [address] PCP - General Internal Medicine 02/03/20 Doctor Of Osteopathy Relationship Specialty Start Date End Date Augustin Perdomo MD [address] [place] [address], [place] [address] PCP - General Internal Medicine 02/03/20 Doctor Of Osteopathy Relationship Specialty Start Date End Date Augustin Perdomo MD [address] [place] [address], [place] [address] PCP - General Internal Medicine 02/03/20 Doctor Of Osteopathy Relationship Specialty Start Date End Date Augustin Perdomo MD [address] [place] [address], [place] [address] PCP - General Internal Medicine 02/03/20 Doctor Of Osteopathy Relationship Specialty Start Date End Date Augustin Perdomo MD [address] [place] [address], [place] [address] PCP - General Internal Medicine 02/03/20 Doctor Of Osteopathy Relationship Specialty Start Date End Date Augustin Perdomo MD [address] [place] [address], [place] [address] PCP - General Internal Medicine 02/03/20 Doctor Of Osteopathy Relationship Specialty Start Date End Date Augustin Perdomo MD [address] [place] [address], [place] [address] PCP - General Internal Medicine 02/03/20 Doctor Of Osteopathy Relationship Specialty Start Date End Date Augustin Perdomo MD [address] [place] [address], [place] [address] PCP - General Internal Medicine 02/03/20 Doctor Of Osteopathy Relationship Specialty Start Date End Date Augustin Perdomo MD [address] [place] [address] PCP - General Internal Medicine 02/03/20 Doctor Of Osteopathy Relationship Specialty Start Date End Date Augustin Perdomo MD [address] [place] [address] PCP - General Internal Medicine 02/03/20 Doctor Of Osteopathy Relationship Specialty Start Date End Date Augustin Perdomo MD [address] [place] [address] PCP - General Internal Medicine 02/03/20 Doctor Of Osteopathy Relationship Specialty Start Date End Date Augustin Perdomo MD [address] [place] [address] PCP - General Internal Medicine 02/03/20 Doctor Of Osteopathy Relationship Specialty Start Date End Date Augustin Perdomo MD [address] [place] [address] PCP - General Internal Medicine 02/03/20 Doctor Of Osteopathy Relationship Specialty Start Date End Date Augustin Perdomo MD [address] [place] [address] PCP - General Internal Medicine 02/03/20 Doctor Of Osteopathy Relationship Specialty Start Date End Date Augustin Perdomo MD [address] [place] [address] PCP - General Internal Medicine 02/03/20 Doctor Of Osteopathy Relationship Specialty Start Date End Date Augustin Perdomo MD [address] [place] [address] PCP - General Internal Medicine 02/03/20 Doctor Of Osteopathy Relationship Specialty Start Date End Date Augustin Perdomo MD [address] [place] [address] PCP - General Internal Medicine 02/03/20 Doctor Of Osteopathy Relationship Specialty Start Date End Date Augustin Perdomo MD [address] [place] [address] PCP - General Internal Medicine 02/03/20 Doctor Of Osteopathy Relationship Specialty Start Date End Date Augustin Perdomo MD [address] [place] [address] PCP - General Internal Medicine 02/03/20 Doctor Of Osteopathy Relationship Specialty Start Date End Date Augustin Perdomo MD [address] [place] [address] PCP - General Internal Medicine 02/03/20 Doctor Of Osteopathy Relationship Specialty Start Date End Date Augustin Perdomo MD [address] [place] [address] PCP - General Internal Medicine 02/03/20 FOR RECORDS PERTAINING TO PATIENTS WHO ARE OR HAVE BEEN ENROLLED IN A CHEMICAL DEPENDENCY/SUBSTANCEABUSE PROGRAM, SOME INFORMATION MAY BE OMITTED. This clinical summary was aggregated from multiple sources. Caution should be exercised in using it in the provision of clinical care. This summary normalizes information from multiple sources, and as a consequence, information in this document may materially change the coding, format and clinical context of patient data. In addition, data may be omitted in some cases. CLINICAL DECISIONS SHOULD BE BASED ON THE PRIMARY CLINICAL RECORDS. [facility]. provides no warranty or guarantee of the accuracy or completeness of information in this document.
[2023-05-11 10:09] LABS: Chlamydia By Nucleic Acid AMP Negative (Negative); Gonococcus By Nucleic Acid AMP Negative (Negative)
[2023-05-16 16:09] LABS: HPV Reflexed? NOT INDICATED
== END | disposition home or self-care (01) ==
PROVIDERS: PCP Internal Medicine; Referring Provider Obstetrics & Gynecology; Visit Provider Obstetrics & Gynecology
DX: Z11.3 Encounter for screening for infections with a predominantly sexual mode of transmission (principal); Z12.4 Encounter for screening for malignant neoplasm of cervix
CPT/HCPCS: 36415; 86703; 86780; 86803; 87340; 87491; 87591; 88175; G0145

== ENCOUNTER → 2023-11-27 | Outpatient (CLI) | payer OTHER, SELFPAY ==
[2023-11-30 06:10] LABS: Chlamydia By Nucleic Acid AMP Negative (Negative); Gonococcus By Nucleic Acid AMP Negative (Negative)
== END | disposition home or self-care (01) ==
LOC: LABSPEC 12:34
PROVIDERS: PCP Internal Medicine; Referring Provider Nurse Practitioner Women's Health; Visit Provider Nurse Practitioner Women's Health
DX: Z11.3 Encounter for screening for infections with a predominantly sexual mode of transmission (principal)
CPT/HCPCS: 87491; 87591

== ENCOUNTER → 2024-01-23 | Outpatient (CLI) | payer OTHER, SELFPAY ==
[2024-01-23 12:33] LABS: International Normalized Ratio 1.1; Prothrombin Time (Protime)PT. 14.6 SECONDS (11.7-14.9)
[2024-01-23 12:34] LABS: Erythrocyte Sedimentation Rate 19 mm/hr (0-30)
[2024-01-23 12:38] LABS: Hemoglobin A1c 5.2 % (3.8-5.6)
[2024-01-23 13:16] LABS: Amylase 51 U/L (25-115); CPK Total, Creatine Kinase 99 U/L (26-192); CRP < 2.90 mg/L (0.0-3.0); Cholesterol 199 mg/dL (200); Ferritin 48 ng/mL (8-252); High Density Lipoprotein 40 mg/dL; Iron 118 ug/dL (50-170); Iron Binding Capacity,Total 370 ug/dL (250-450); LDH 157 U/L (84-246); Lipase 28 U/L (13-75); Triglycerides 176 mg/dL; Very Low Density Lipoprotein 35 mg/dL (5-40)
[2024-01-23 13:19] LABS: HIV - WCH Non-Reactive (Nonreactive)
[2024-01-24 14:09] LABS: Anti-Centromere B Ab <0.2 AI (0.0-0.9); Anti-Chromatin <0.2 AI (0.0-0.9); Anti-Jo <0.2 AI (0.0-0.9); Anti-Mitochondrial AB <20.0 Units (0.0-20.0); Anti-Scleroderma-70 AB <0.2 AI (0.0-0.9); Anti-dsDNA Ab <1 IU/mL (0-9); RNP Ab <0.2 AI (0.0-0.9); SJOGREN'S Anti-SS-A test < 0.2 AI (0.0-0.9); SJOGREN'S Anti-SS-B test < 0.2 AI (0.0-0.9); Smith Ab <0.2 AI (0.0-0.9)
[2024-01-29 16:09] LABS: ACCA 73 units (0-90); ALCA 10 units (0-60); AMCA 52 units (0-100); Aldolase 4.5 U/L (3.3-10.3); Alpha-1-Globulins 0.2 g/dL (0.0-0.4); Alpha-2-Globulins 0.8 g/dL (0.4-1.0); Angiotensin Convert Enzyme 91 U/L (14-82); Cytoplasmic Ab (C-ANCA) <1:20 titer (Neg:<1:20); Gamma Globulin 1.2 g/dL (0.4-1.8); Immunoglobulin A 480 mg/dL (87-352); Immunoglobulin E 10 IU/mL (6-495); Immunoglobulin G 1173 mg/dL (586-1602); Immunoglobulin M 160 mg/dL (26-217); PROEL- TOTAL PROTEIN 7.4 g/dL (6.0-8.5); Perinuclear Ab (P-ANCA) <1:20 titer (Neg:<1:20); gASCA 26 units (0-50)
== END | disposition home or self-care (01) ==
LOC: LAB 11:38
PROVIDERS: PCP Internal Medicine; Referring Provider Internal Medicine Gastroenterology; Visit Provider Internal Medicine Gastroenterology
DX: R16.0 Hepatomegaly, not elsewhere classified (principal)
CPT/HCPCS: 36415; 80061; 82085; 82150; 82164; 82550; 82728; 82784; 82785; 83036; 83516; 83540; 83550; 83615; 83690; 84165; 85610; 85652; 86036; 86037; 86140; 86225; 86235; 86334; 86671; 86703

== ENCOUNTER 2024-02-02 11:29 | Day surgery (SDC) | payer OTHER, SELFPAY ==
[2024-01-03 10:27] LABS: Hematocrit 40.5 % (37-47); Hemoglobin 13.2 g/dL (12.0-15.0); Mean Corp Hgb Conc 32.6 g/dL (32-36); Mean Corpuscular Hgb 28.6 pg (27.0-32.0); Mean Corpuscular Volume 87.7 fL (81-99); Mean Platelet Vol. 10.9 fl (6.2-12.0); Platelet Count 324 K/mm3 (150-450); RBC Distribution Width CV 11.9 % (11.6-14.6); RBC Distribution Width SD 38.5 fl (35.1-43.9); Red Blood Count 4.62 M/mm3 (4.2-5.4); White Blood Count 8.4 K/mm3 (4.4-11.0)
[2024-01-03 10:45] LABS: Anion Gap 3 (5-15); BUN 9 mg/dL (7-18); BUN/Creat Ratio 14.5 RATIO (10-20); Calcium,Total 9.8 mg/dL (8.5-10.1); Chloride 103 mmol/L (98-107); Creatinine, Serum 0.62 mg/dL (0.55-1.02); EST Glomerular Filtration Rate 126 mL/min (>60); Est Glom Filt Rate - Afr Amer 152 mL/min (>60); Glucose 96 mg/dL (74-106); Potassium 3.7 mmol/L (3.5-5.1); Sodium Level 136 mmol/L (136-145)
[2024-01-07 15:07] LABS: Cotinine Screen Blood <1.0 ng/mL (.); Nicotine Blood <1.0 ng/mL (.)
[2024-02-02] VITALS (9 sets, daily range): BP systolic 114–125; BP diastolic 71–80; PULSE 64–101; RESP 16–20; TEMP 36–36.5; O2SAT 100; BMI 27.8
[2024-02-02 12:15] LABS: Internal QC Validated? YES +Cl - CLEAR BKGD; Pregnancy, Urine Negative Negative
[2024-02-02] MEDS: Lactated Ringers 1,000 ML 15 ML IV (12:21)
[2024-02-02] MEDS: VANCOMYCIN 200 MG IV (12:24)
--- NOTE | 2024-02-02 12:30 | PRE.ANES_ITS ---
ASA Classification* ASA Classification ASA Classification: 2 Assessment & Plan Anesthesia* Anesthesia Assessment Anesthesia Assessment: Discussed sedation and/or anesthesia options, risks, benefits, and alternatives with patient/parents/legal guardian/POA. Questions invited. The patient/parents/legal guardian/POA seems to understand and agrees to proceed with anesthesia plan. Reviewed the physical assessment, medical history, allergy history and patient home medications list prior to surgery/procedure/anesthetic and documented any changes. Performed airway and anesthesia risk assessments. Anesthesia Type Anesthesia Type: General Anesthesia Focused Assessment* Temperature: 97.3 F Pulse Rate: 68 Blood Pressure: 115/80 Respiratory Rate: 20 Pulse Ox: 100 Airway Assessment Mouth opens: >3 cm Mallampati Score: II Focused Labs Anesthesia Preop lab: CBC WBC 8.4 K/mm3 (4.4-11.0) 01/03/24 10:09 RBC 4.62 M/mm3 (4.2-5.4) 01/03/24 10:09 Hgb 13.2 g/dL (12.0-15.0) 01/03/24 10:09 Hct 40.5 % (37-47) 01/03/24 10:09 Plt Count 324 K/mm3 (150-450) 01/03/24 10:09 CHEMISTRY Potassium 3.7 mmol/L (3.5-5.1) 01/03/24 10:09 Sodium 136 mmol/L (136-145) 01/03/24 10:09 Magnesium 1.8 mg/dL (1.6-2.6) 01/06/20 14:47 BUN 9 mg/dL (7-18) 01/03/24 10:09 Creatinine 0.62 mg/dL (0.55-1.02) 01/03/24 10:09 Glucose 96 mg/dL (74-106) 01/03/24 10:09 POC Glucose 105 mg/dL (70-110) 01/07/20 06:20 COAG PT 14.6 SECONDS (11.7-14.9) 01/23/24 11:47 Urine Test Negative Negative 02/02/24 11:57 Tst Clinic Negative 03/26/21 14:58 Pre-Assessment Diagnosis/Proposed Procedure Planned Operative Procedure(s): (B) Excision hypertrophic scars with intermediate closure Anesthesia History Anesthesia History - rn community health: Anesthesia History - rn community health Hx Hospitalization No 01/19/24 09:30 Any Problems With Anesthesia Yes: PONV 01/19/24 09:30 Cholinesterase deficiency No 01/19/24 09:30 You/Your Family Experience No 01/19/24 09:30 fever (hyperthermia) with Relationship Recent Exposure to Contagious No 02/02/24 12:09 Disease Does patient have nerve No 01/19/24 09:30 stimulator Patient instructed to have device shut off --Does patient have Pacemaker No 02/02/24 12:09 or ICD? When Was Last Pacemaker Check QUESTION #4 FULL TEXT: You/Your Family Experience fever (hyperthermia) with Anesthesia Last Oral Intake Last Oral intake: Last Oral Intake NPO since 00:00 02/02/24 12:09 Meds taken in AM with sips of Yes 02/02/24 12:09 water? Meds patient instructed to take am of surgery PONV PONV - rn community health: PONV - rn community health Female Yes 01/19/24 09:30 HX of Motion Sickness No 01/19/24 09:30 HX of N/V After Surgery Yes 01/19/24 09:30 Non-Smoker Yes 01/19/24 09:30 Duration of Surgery greater Yes 01/19/24 09:30 than 60 minutes Number of Risk Factors 4 01/19/24 09:30 PONV Score Severe Risk 01/19/24 09:30 Height & Weight Height & Weight: Anesthesia: Height & Weight Height 5 ft 7 in 02/02/24 12:09 Weight: 80.7 kg 02/02/24 12:09 Body Mass Index (BMI) 27.8 02/02/24 12:09 Respiratory Assessment Respiratory Assessment - rn community health: Respiratory Tract Infection Hx - rn community health Hx Respiratory Tract Infection No 01/19/24 09:30 STOP Sleep Apnea STOP Sleep Apnea - rn community health: STOP Sleep Apnea - rn community health Hx Hypertension No 01/19/24 09:30 Hx Sleep Apnea No 01/19/24 09:30 CPAP BIPAP Do you snore loudly (louder No 01/19/24 09:30 than talking or can be heard Do you often feel tired/ No 01/19/24 09:30 fatigued/ sleepy during daytime? Has anyone observed you stop No 01/19/24 09:30 breathing during sleep? STOP Results Negative 01/19/24 09:30 QUESTION #5 FULL TEXT : Do you snore loudly (louder than talking or can be heard through closed doors)? 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 Specify any problems Hx of Preganancy in last 3 N/A 01/19/24 09:30 Months Nurse Filling Out Transfusion NBUCHER 01/19/24 09:30 & Questions: Date: 01/19/24 01/19/24 09:30 Time: 09:32 01/19/24 09:30 Patient unable to answer at this time (ie. confused, unrespo /Reproduction History /Reproductive History - rn community health: /Reproductive Hx- rn community health Hx Now No 01/19/24 09:30 Gestational Age (in weeks): EDC: Hx Hx Para Hx Section SAB No 01/19/24 09:30 Active Medications Active Medications: Current Medications Generic Name Dose Route Start Last Admin Trade Name Freq PRN Reason Stop Dose Admin Vancomycin HCl 1,250 mg in 250 mls @ 200 mls/hr 02/02/24 13:00 02/02/24 12:24 Vancomycin IV 02/02/24 14:14 200 mls/hr PREOP ONE Administration Lactated Ringer's 1,000 mls @ 15 mls/hr 02/02/24 11:45 02/02/24 12:21 IV 02/08/24 01:04 15 mls/hr .Q48H BRENNAN Administration Protocol PFSH Medical History PONV (postoperative nausea and vomiting) History of steroid therapy History of hiatal hernia Gastric reflux Heartburn Hypertrophic acne scar History of gastrointestinal disorder History of depression History of asthma History of environmental allergies Anxiety about blushing Hypertrophic scar of skin Contact dermatitis Intertrigo Shoulder pain Chronic thoracic back pain Chronic neck pain Macromastia Frequent headaches Back problem Asthma Allergies Home Medications ?Medication ?Instructions ?Recorded ?Last Taken ?Type multivitamin 1 tab PO DAILY 03/19/21 02/01/24 History escitalopram oxalate 20 mg tablet 10 mg PO DAILY 04/26/22 02/01/24 History (Lexapro) digestive enzymes 1 cap PO DAILY 05/08/23 02/01/24 History levonorgestrel 14 mcg/24 hr (up to 1 device intrauterine ONCE 05/08/23 02/02/24 History 3 yrs) 13.5 mg intrauterine device ([place]) montelukast 10 mg tablet 10 mg PO DAILY allergies 05/08/23 02/01/24 History multivitamin with minerals 1 tab PO DAILY 05/08/23 01/18/24 History (Hair,Skin and Nails tablet) spironolactone 100 mg tablet 100 mg PO QDAY 11/29/23 02/01/24 History imiquimod 5 % topical cream packet 1 applic topical .COMPLEX #12 ea 12/20/23 02/01/24 Rx fluticasone propionate 50 1 spray intranasal DAILY PRN nasal 01/03/24 02/01/24 History mcg/actuation nasal congestion spray,suspension clindamycin HCl 300 mg capsule 300 mg PO Q12H #10 caps 01/17/24 Unknown Rx rabeprazole 20 mg tablet,delayed 20 mg PO DAILY 01/19/24 02/02/24 History release doxycycline hyclate 50 mg capsule 50 mg PO BID #14 caps 01/31/24 02/01/24 Rx Allergy/AdvReac Type Severity Reaction Status Date / Time chlorhexidine (From Allergy Intermediate Rash Verified 02/02/24 12:05 ChloraPrep Clear) clindamycin Allergy Intermediate hives Verified 02/02/24 12:08 isopropyl alcohol (From Allergy Intermediate Rash Verified 02/02/24 12:05 ChloraPrep Clear) latex Allergy Intermediate SKIN RASH Verified 02/02/24 12:05 AND ITCHING cefadroxil (From Duricef) Allergy Hives Verified 02/02/24 12:05 Family History Mother Hypertension Father Hypertension High cholesterol Skin cancer Grandmother Arthritis Bowel disease Breast cancer Diabetes Heart disease Hypertension CVA (cerebral vascular accident) Thyroid disorder Grandfather Heart disease Hypertension Grandfather Heart disease Hypertension COPD (chronic obstructive pulmonary disease) Surgical History History of wisdom tooth extraction History of excision of lesion History of bilateral breast reduction surgery Social History Smoking Status: Never smoker alcohol intake: current details: occasionally-on weekends substance use type: does not use caffeine: No what type of physical activity do you participate in: walking and weight training frequency: 5-6 times per week seatbelt use: always do you feel safe at home: Yes additional social history: Single Works at [employer] pt does vape, currently taking iburofen 3 times a day. pt denies marijuana use, denies edibles denies aspirin use. Review of Systems (Anesthesia) ROS Narrative System reviewed and no additional complaints, except as documented.
--- NOTE | 2024-02-02 13:00 | SCAR_PTH ---
PATIENT: THEA MERLOS [place] [facility] [facility] [id number] AGE/SX: 23/F ROOM: RE02/02/[address]: Dr. Allegra Chavez MD : 2000 BED: DIS: 02/02/2024 SPEC #: [id number] RECD: 02/05/24 06:56 STATUS: DM REDelta #: [id number] DEBBIE: 02/02/24 13:[address]: Allegra Chavez DEPT: SURGICAL PATHOLOGY RECD BY: Lacey David ENTERED: 02/05/24 08:05 SP TYPE: Scar OTHR DR: Dr. Anne Marie Perdomo MD Tissues: A - CICATRIX/SCAR B - CICATRIX/SCAR C - CICATRIX/SCAR Procedures: Surgery Specimen Level III HEADER OPERATION: Excision hypertrophic scars with intermediate closure PRE-OP DIAGNOSIS: Hypertrophic scar status post breast reduction TISSUE SUBMITTED: A- Skin of left lateral breast, B- Scar tissue left breast, C- Scar tissue right lateral breast MICROSCOPIC DIAGNOSIS A. Skin of left breast, excision: Consistent with hypertrophic scar (keloid). B. Scar tissue of left breast, biopsy: Consistent with hypertrophic scar (keloid). Epidermal inclusion cyst. C. Scar tissue of right breast, biopsy: Hypertrophic scar (keloid). AM. 02/06/2024 MICROSCOPIC DESCRIPTION Slides are reviewed. GROSS DESCRIPTION A. Received in fixative is one container labeled with the patient's name and designated Skin of left lateral breast. The specimen consists of an elongated fragment of degroot-white skin measuring 6.2 x 2.0 x 0.6cm. Serial sections reveal firm white cut surfaces. No mass lesions are identified. Computer Game Programmer sections are submitted in one cassette. B. Received in fixative is one container labeled with the patient's name and designated Scar tissue of left breast. The specimen consists of a single irregular fragment of light degroot excised skin measuring 1.0 x 0.6 x 0.2cm. The specimen is bisected and totally submitted in one cassette. C. Received in fixative is one container labeled with the patient's name and designated Scar tissue of right lateral breast. The specimen consists of an ellipse of light degroot excised skin measuring 3.5 x 1.5 x 0.6cm. Serial sections reveal homogenous firm cut surfaces. No mass lesions are identified. Computer Game Programmer sections are submitted in one cassette. AM. 02/05/2024 TC:5 CPT:[id number]
--- NOTE | 2024-02-02 13:00 | PCM.HP.BLA ---
History and Physical Date of Admission: 02/02/24 The patient is examined and there are no changes to the H&P dated 01/09/2024. The patient presents for revision/excision of uncomfortable scars of both the right and left breast secondary to breast reduction surgery. She is marked in the preop holding area prior to surgery. No guarantees were made as to the final results or the potential for recurrent scars. Informed consent was obtained. Assessment & Plan Assessment/Plan (1) Hypertrophic scar: (2) Status post breast reduction: PLAN: Plan The patient presents for bilateral scar excision and closure.
--- NOTE | 2024-02-02 13:40 | SUR.PREOP ---
1320 Pt skin color on face bright red. Pt reports feeling hot and nauseous. Vancomycin stopped. Dr. Newby notified.
--- NOTE | 2024-02-02 13:41 | SUR.PREOP ---
1330 benadryl given IV by anesthsia. Pt. skin less red. cool cloth on forehead. nausea subsiding. b/p 100/77.
--- NOTE | 2024-02-02 13:42 | SUR.PREOP ---
[id number] dr espinoza okayed for pt to proceed with surgery. dr bravo also spoke with pt and family.
[2024-02-02] MEDS: Bupiv/Epi 0.25% 30 ML Vial (14:03)
--- NOTE | 2024-02-02 15:07 | EX.PCM.DISCH ---
Discharge Instructions Dressing / Incision Additional Dressing/Incision Instructions:: Follow the instructions given in the office. Follow Up Care Please Follow Up With: Allegra Chavez MD When: In 1 to 2 weeks Test Results: Test results from this visit will be discussed in further detail at your follow-up appointment, if applicable. Discharge Plan Admission Attending Provider: Allegra Chavez Primary Care Provider: Anne Marie Perdomo Instructions Print Language: Northern Irish Discharge Orders/Prescriptions Prescriptions: No Action multivitamin Tablet 1 tab PO DAILY digestive enzymes Capsule 1 cap PO DAILY Rx Instructions: administer with food; swallow whole; do not crush/chew/dissolve/break/cut Hair,Skin and Nails Tablet 1 tab PO DAILY [place] 14 mcg/24 hrs (3 yrs) 13.5 mg intrauterine device 1 device intrauterine ONCE Rx Instructions: as a single dose spironolactone 100 mg tablet 100 mg PO QDAY fluticasone propionate 50 mcg/actuation spray,suspension 1 spray intranasal DAILY PRN (Reason: nasal congestion) clindamycin HCl 300 mg capsule 300 mg PO Q12H Qty: 10 0RF montelukast 10 mg tablet 10 mg PO DAILY escitalopram oxalate [Lexapro] 20 mg tablet 10 mg PO DAILY rabeprazole 20 mg tablet,delayed release (DR/EC) 20 mg PO DAILY imiquimod 5 % cream in packet 1 applic topical .COMPLEX Qty: 12 1RF Rx Instructions: 1 applic topical 3 times per week up to 16 weeks; doxycycline hyclate 50 mg capsule 50 mg PO BID Qty: 14 0RF Referrals / Follow Up: Anne Marie Perdomo MD [Primary Care Provider] - Disposition Disposition (needs filled in before D/C Order can be placed): Home, Self Care
--- NOTE | 2024-02-02 15:08 | OP.PCM_ITS ---
Problems Associated Problem List Diagnoses (1) Hypertrophic scar: (2) Status post breast reduction: Operative Report (Standard) Operative Information Date of Procedure: 02/02/24 Pre-Operative Diagnosis: Hypertrophic scars left and right breast Post-Operative Diagnosis: Same Surgery/Procedure Performed: Excision hypertrophic scar left breast (8 cm) with intermediate closure of the same length; Excision hypertrophic scar left breast (1.5 cm) with intermediate closure of the same length; Excision hypertrophic scar right breast (3.5 cm) with intermediate closure of the same length family day care provider: Yes Inorganic Chemist: Bobbi Srinivasan Tasks completed by international first officer: Closing Type of Anesthesia: General RN Documented Start/Stop Times: Operation Date: 02/02/24 13:00 Case Time Into Pre-Op 02/02/24 11:34 Out of Pre-Op 02/02/24 13:23 Anesthesia Start 02/02/24 13:39 Into Room 02/02/24 13:39 Procedure Start 02/02/24 14:03 Procedure End 02/02/24 14:57 Anesthesia End 02/02/24 15:04 Out of Room 02/02/24 15:04 Procedure Start Time: 14:03 Procedure Stop Time: 14:57 Select all DRAINS/GRAFTS/IMPLANTS that apply: None Estimated Blood Loss: Minimal Specimen collected: Yes Description of specimen(s) removed: Hypertrophic scars of left and right breast Description of surgery: Alexandra comes in today to address uncomfortable hypertrophic scars of the left and right breast resulting from surgery over 4 years ago. She presents for excision of the hypertrophic scars. She is aware that there is no guarantees of these will not recur. Informed consent was obtained. The patient is brought to the operating room and placed under general anesthesia in the supine position. The right and left breasts are prepped and draped in the usual sterile fashion. We initially began with injecting the areas to be excised with 1/4% Marcaine with epinephrine. Following this, the 3 scars are excised down to the subcutaneous tissue and passed off the operative field to be sent to pathology. Hemostasis is controlled with cautery. The incisions are then closed in 3 layers using a STRATAFIX suture and the subcutaneous, dermal, and subcuticular planes. Further refinement of the closure at the mid left lower breast is approximated with a fast-absorbing gut. Dermabond and Steri-Str ips are placed on the incisions along with a Tegaderm. She tolerated the procedure well was taken to the recovery area in an awakening in stable condition. Needle and sponge counts are correct. Surgical Findings: Presumptive hypertrophic scars Complications Complications: No Admit VTE Documentation VTE Mechan Device Prophylaxis: SCD's
--- NOTE | 2024-02-02 15:08 | PCM.POST.ANE ---
Anesthesia: Postop Eval I Current Vital Signs Temperature: 97.7 F Pulse Rate: 86 Blood Pressure: 125/75 Respiratory Rate: 16 Pulse Ox: 100 Oxygen Delivery Method: Room Air Assessment Airway patent: Yes Spontaneous unlabored respirations: Yes Mental status: Asleep nausea: No Vomiting: No Anesthesia Complication: No Fluid Hydration Crystalloid volume administer (ml): 650 Total IV fluid infused: 650 Progress Note Anesthesia document: Postop Eval 1 completed: Yes
== END 2024-02-02 17:09 | disposition home or self-care (01) ==
LOC: SDC 11:30 → AC 11:32
PROVIDERS: Anesthesiology; PCP Internal Medicine; Referring Provider Plastic Surgery; Visit Provider Plastic Surgery
PROC: 0H0U0ZZ Alteration of Left Breast, Open Approach (ICD-10-PCS; CPT 19318; principal; 2024-02-02 12:45)
DX: L91.0 Hypertrophic scar (principal); N62 Hypertrophy of breast; Z87.19 Personal history of other diseases of the digestive system; K21.9 Gastro-esophageal reflux disease without esophagitis; Z80.3 Family history of malignant neoplasm of breast
CPT/HCPCS: 11406; 12034; 00300; 36415; 80048; 80323; 81025; 85027; 88304; G0480; J2405

== ENCOUNTER → 2024-02-12 | Outpatient (CLI) | payer OTHER, SELFPAY ==
--- NOTE | 2024-02-12 09:21 | US_ITS ---
STUDY: ABDOMINAL ULTRASOUND - RIGHT UPPER QUADRANT; ELASTOGRAPHY REASON FOR VISIT: Female, 23 years old. Hepatomegaly. TECHNIQUE: Ultrasound evaluation of the right upper quadrant was performed with real-time and static alegre-scale imaging. Point quantification shear wave elastography was performed ([employer]). TECHNICAL QUALITY: Adequate. COMPARISON: None. FINDINGS: Liver: The liver is slightly enlarged and measures 18 cm. There is normal echogenicity of the liver. The bile ducts are within normal limits. There is hepatic color flow. The direction of portal flow is hepatopetal. There is no demonstrated mass lesion. Median liver stiffness measured 5.4 kPa. Gallbladder: Normal distended gallbladder. The gallbladder wall measures 2.0 mm. There is a negative sonographic Patricio''s sign. There is no pericholecystic fluid. There are no gallstones. Common Bile Duct (C.B.D.): The common bile duct measures 2 mm. Pancreas: There is normal echogenicity of the visualized pancreas. There is no demonstrated pancreatic mass or cyst. Right Kidney: Normal size of the right kidney. The right kidney measures 12 cm x 6.1 cm x 3.8 cm. Normal renal cortex. The right cortex measures 1.0 cm. There is no demonstrated renal mass or cyst. There is no right hydronephrosis. US/ABD Limited w/ Elastography IMPRESSION: 1. Liver stiffness measures 5.4 kPa compatible with F0-F1 (Normal to mild liver fibrosis) Metavir score. Electronically Signed: Maximilian Chavez MD at 15:29 EST ,
== END | disposition home or self-care (01) ==
LOC: US 09:17
PROVIDERS: PCP Internal Medicine; Referring Provider Internal Medicine Gastroenterology; Visit Provider Internal Medicine Gastroenterology
DX: R16.0 Hepatomegaly, not elsewhere classified (principal)
CPT/HCPCS: 76705; 76981

== ENCOUNTER → 2024-02-16 | Outpatient (CLI) | payer OTHER, SELFPAY ==
--- NOTE | 2024-02-16 08:55 | NM_ITS ---
CLINICAL: Female, 23 years old. Abdominal pain NUCLEAR BILIARY SCAN TECHNIQUE: Following the intravenous administration of 5.6 mCi of Tc Mebrofenin, hepatobiliary images was performed. 1.5 mcg of Cholecystokinin was then administered intravenously over a 30 minute period. COMPARISON STUDIES : NM - None. CR - Not available for review at this time. CT - CT abdomen and pelvis with IV contrast 02/23/2021. MR - Not available for review at this time. US - 02/12/2024. FINDINGS: Relatively prompt and homogeneous radiopharmaceutical concentration is noted by a normal sized liver. There are no parenchymal defects noted.. Gallbladder activity is identified at 75 minutes post radiopharmaceutical administration. Small bowel activity is identified at 30 minutes post radiopharmaceutical administration. Washout of the radiopharmaceutical by the hepatic parenchyma occurs in a normal fashion on qualitative inspection. The post Cholecystokinin gallbladder ejection fraction is calculated at 29 minutes following Cholecystokinin administration was noted to be 40% (normal greater than 35%). NM/Hepatobilliary Img w/Pharm Int IMPRESSION: Normal 99m TC Mebrofenin hepatobiliary imaging survey with Cholecystokinin. A gallbladder ejection fraction calculated to be greater than 35% following the administration of Cholecystokinin makes the probability of functional hepatobiliary disease (gallbladder and/or sphincter of Oddi dyskinesia) and/or organic hepatobiliary disease (chronic acalculous cholecystitis and/or cystic duct syndrome) to be low. (Arlet Salcido al, Journal of Nuclear Medicine 32:1695, 1991). Electronically Signed: Kash Keen MD at 15:21 EST ,
== END | disposition home or self-care (01) ==
LOC: NM 08:53
PROVIDERS: PCP Internal Medicine; Referring Provider Internal Medicine; Visit Provider Internal Medicine Gastroenterology
DX: R16.0 Hepatomegaly, not elsewhere classified (principal); R10.9 Unspecified abdominal pain
CPT/HCPCS: 78227; A9537; J2805

== ENCOUNTER → 2024-03-06 | Outpatient (CLI) | payer OTHER, SELFPAY ==
--- NOTE | 2024-03-06 10:15 | NM_ITS ---
CLINICAL: 43-year-old female with history of abdominal pain. SEMI-SOLID PHASE 99m Tc SULFUR COLLOID GASTRIC EMPTYING STUDY COMPARISON: Abdominal ultrasound report 02/12/2024 FINDINGS: The patient was administered 1.1 mCi of 99m Tc sulfur colloid mixed with oatmeal and consumed per os. Image acquisitions in the anterior-posterior projections for a total of 60 minutes. There is prompt visualization of the stomach. There is no gastroesophageal reflux identified. First order kinetics are maintained throughout the duration of the acquisitions. The T ? linear fit was extrapolated to be 212.54 minutes, (Normal: 12-56 minutes). NM/Gastric Emptying Study IMPRESSION: 1. ABNORMAL 99m Tc sulfur colloid semi-solid phase (oatmeal) gastric emptying imaging examination. A. There is delayed semi-solid phase gastric emptying compared to normal controls with maintained first order kinetics throughout all components of the examination. (Jasmina et al, J Nucl Med Tech 38: 186, 2010). Electronically Signed: Timbo Cox DO at 8:12 EST ,
== END | disposition home or self-care (01) ==
LOC: NM 10:10
PROVIDERS: PCP Internal Medicine; Referring Provider Internal Medicine Gastroenterology; Visit Provider Internal Medicine Gastroenterology
DX: R16.0 Hepatomegaly, not elsewhere classified (principal)
CPT/HCPCS: 78264; A9541

== ENCOUNTER → 2024-04-08 | Outpatient (CLI) | payer OTHER, SELFPAY ==
--- NOTE | 2024-04-08 07:42 | NM_ITS ---
PROCEDURE: GASTRIC EMPTYING STUDY - 4 HR REASON FOR EXAM: Gastroparesis. Abdominal pain. TECHNIQUE: Nuclear medicine solid phase gastric emptying study. RADIOPHARMACEUTICAL: 1.1 millicurie technetium 99 M sulfur colloid within an egg sandwich. COMPARISON: Prior gastric emptying exam 03/07/2024.. FINDINGS: Solid phase gastric emptying calculated as follows: 59 minutes: 16% empty; 118 minutes: 48% empty; 239 minutes: 93% empty. Linear fit gastric emptying half time of 127.8 minutes. NM/Gastric Emptying Study - 4 HR IMPRESSION: Mildly delayed solid phase gastric emptying. Reading Location: [id number]
== END | disposition home or self-care (01) ==
PROVIDERS: PCP Internal Medicine; Referring Provider Internal Medicine Gastroenterology; Visit Provider Internal Medicine Gastroenterology
DX: K31.84 Gastroparesis (principal)
CPT/HCPCS: 78264; A9541

== ENCOUNTER → 2024-05-10 | Outpatient (CLI) | payer OTHER, SELFPAY ==
[2024-05-17 13:28] LABS: HPV Reflexed? NOT INDICATED
== END | disposition home or self-care (01) ==
LOC: LABSPEC 16:57
PROVIDERS: PCP Internal Medicine; Referring Provider Obstetrics & Gynecology; Visit Provider Obstetrics & Gynecology
DX: Z12.4 Encounter for screening for malignant neoplasm of cervix (principal)
CPT/HCPCS: 88175; G0145

== ENCOUNTER → 2024-10-10 | Outpatient (CLI) | payer OTHER, SELFPAY ==
--- NOTE | 2024-10-10 11:04 | CT_ITS ---
PROCEDURE: ABDOMEN/PELVIS WITH CONTRAST 10/10/2024 REASON FOR EXAM: ABD PAIN R/O APPENDICITIS TECHNIQUE: ABDOMEN/PELVIS WITH CONTRAST Coronal and Sagittal reconstruction series were provided. CONTRAST: Isovue-300 VOLUME: 100 mL One or more dose reduction techniques were used (e.g., Automated exposure control, adjustment of the mA and/or kV according to patient size, use of iterative reconstruction technique. RADIATION DOSE SUMMARY: CTDlvol: 14.9 mGy DLP: 499.46 mGycm COMPARISON: None FINDINGS: Lung bases: The lung bases are clear. Liver: Borderline hepatomegaly. There is a 2.1 cm area of linear decreased attenuation in the upper lateral aspect of the right lobe of the liver. This may represent either focally dilated biliary ducts versus possible adenoma. Gallbladder: Unremarkable Spleen: Normal size. Pancreas: Normal size without evidence of mass surrounding inflammation or ductal dilation. Adrenals: Unremarkable Kidneys: Normal renal sizes. No hydronephrosis. Bladder: Unremarkable Reproductive Organs: IUD is seen within the uterus. Follicles are seen in the ovaries. Bowel: Unremarkable Appendix: Unremarkable Lymph nodes: Unremarkable. Vasculature: The abdominal aorta and IVC are normal. Peritoneum / Retroperitoneum: Unremarkable Bones: Unremarkable CT/Abdomen/Pelvis WITH Contrast IMPRESSION: Follicles are seen in the ovaries. IUD seen within the uterus. Reading Location: [place] [id number]
== END | disposition home or self-care (01) ==
LOC: CT 11:03
PROVIDERS: PCP Internal Medicine; Referring Provider Internal Medicine Gastroenterology; Visit Provider Internal Medicine Gastroenterology
DX: R10.9 Unspecified abdominal pain (principal)
CPT/HCPCS: 74177; Q9967

== ENCOUNTER → 2024-11-07 | Outpatient (CLI) | payer OTHER, SELFPAY ==
[2024-11-09 12:09] LABS: Chlamydia By Nucleic Acid AMP Negative (Negative); Gonococcus By Nucleic Acid AMP Negative (Negative)
== END | disposition home or self-care (01) ==
LOC: BWCLAB 10:36
PROVIDERS: PCP Internal Medicine; Referring Provider Nurse Practitioner Women's Health; Visit Provider Nurse Practitioner Women's Health
DX: R10.2 Pelvic and perineal pain (principal); Z11.3 Encounter for screening for infections with a predominantly sexual mode of transmission
CPT/HCPCS: 87070; 87205; 87491; 87591

== ENCOUNTER → 2024-11-13 | Outpatient (CLI) | payer OTHER, SELFPAY ==
--- NOTE | 2024-11-13 16:08 | US_ITS ---
PROCEDURE: PELVIC W/ TRANSVAGINAL 11/13/2024 REASON FOR EXAM: PAIN, CHECK IUD TECHNIQUE: Procedure Code: [id number] Modality: US Procedure: PELVIC W/ TRANSVAGINAL COMPARISON: None FINDINGS: Measurements: Uterus: 7.1 cm x 4.2 cm x 3 cm with a volume of 46.2 mL Endometrial Thickness: 3 mm Right Ovary: 3.5 cm x 2.3 cm x 1.8 cm with a volume of 7.5 mL. Left Ovary: 2.4 cm x 2 cm x 1.6 cm with a volume of 4.5 mL. Uterus: There is a 7 mm by 7 mm x 4 mm fundal fibroid. Endometrium: Unremarkable. IUD is seen within the endometrium. Right ovary: Normal size and echotexture. Left ovary: Normal size and echotexture. Other: No large pelvic mass identified. US/Pelvic w/ Transvaginal IMPRESSION: Small uterine fibroid. IUD is seen within the endometrium. Reading Location: [place] [id number]
== END | disposition home or self-care (01) ==
LOC: US 16:06
PROVIDERS: PCP Internal Medicine; Referring Provider Nurse Practitioner Women's Health; Visit Provider Nurse Practitioner Women's Health
DX: R10.2 Pelvic and perineal pain (principal); Z30.431 Encounter for routine checking of intrauterine contraceptive device
CPT/HCPCS: 76830; 76856

== ENCOUNTER 2024-11-27 07:57 | Day surgery (SDC) | payer OTHER, SELFPAY ==
[2024-11-27] VITALS (7 sets, daily range): BP systolic 95–122; BP diastolic 53–69; PULSE 62–80; RESP 16–18; TEMP 36.1–36.6; O2SAT 98–100; BMI 28.3
[2024-11-27 08:17] LABS: Internal QC Validated? YES +Cl - CLEAR BKGD
[2024-11-27 08:18] LABS: Pregnancy, Urine Negative Negative; Record Kit Lot#,Urine Preg 0000980607
[2024-11-27] MEDS: Lactated Ringers 1,000 ML 15 ML IV (08:29)
--- NOTE | 2024-11-27 08:40 | PCM.HP.STD ---
[facility] - General General Date of Admission: 11/27/24 Date of Service: 11/27/24 Chief Complaint: Abdominal pain with alternating constipation diarrhea HPI Narrative THEA MERLOS, is a 23 F who presents [ *BGI established 01.23.[address] Vega. 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 Was prescribed Sucrase but she didnt want to take it because it had to be with every meal. Has tried OTC digestive enzymes that were helpful but wouldn't take them with meals. Has daily abdominal pain with bloating worse after eating. Sx are exacerbated by dairy and breads. Says she was tested for celiac and was told she was negative. BM are irregular. Will have periods of constipation and diarrhea after eating trigger foods. EGD was performed. The results from the EGD and not available. 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 She is single and does not have any kids. She did have a breast reduction several years ago. . She reported no stressful events or infection she could recall prior to the onset of her health problems. Her appearance was unremarkable. There was no discoloration below her eyes or abnormalities in her fingernails. There were no problems concerning the health of her skin. She has a very good diet in works out and on a daily basis. She does not use street drugs and has no problem with alcohol. She does not have a menstrual cycle. She does take digestive enzymes and clindamycin and spironolactone for skin issues. She was started on Lexapro for some mild anxiety. She was put on a PPI after undergoing an EGD. She described her IBS as symptoms as abdominal pain (primarily in the epigastric and umbilical region), abdominal distention after meals, nausea, acid reflux and intermittent constipation and diarrhea.; lasting 3 to 4 days at a time a few times a month. She reported small, hard normal colored stool which were difficult to pass without strain. Acid reflux and early satiety were more prevalent than prior to IBS onset. She always felt cold at room temperature, particularly in her extremities. HIDA 02.16.24 abnormal US and elastography 02.12.24 hepatic measurement 18cm with fatty infiltration, stiffness measures 5.4kPa compatible with F0-F1 Metavir score. GET 1.8.25 abnormal 212.54 minutes GET 4hr 2.10.25 abnormal referral to gastroparesis clinic OV 3.18.25 pt reports her bowel habits depend on what she eats. Reports lower abd pain that is sometimes better with a bowel movement. Pt reports HB after she has overeaten. Pt reports she does not have an appt with the gastroparesis clinic until July. OV 7.15.25 pt reports metoclopramide has been helpful, but still has bloating after eating certain foods. General Surgery R94.8 - Abnormal results of function studies of other organs and systems ] [facility] Medical History Abnormal biliary HIDA scan PONV (postoperative nausea and vomiting) History of steroid therapy History of hiatal hernia Gastric reflux Heartburn Hypertrophic acne scar History of gastrointestinal disorder History of depression History of asthma History of environmental allergies Anxiety about blushing Hypertrophic scar of skin Contact dermatitis Intertrigo Shoulder pain Chronic thoracic back pain Chronic neck pain Macromastia Frequent headaches Back problem Asthma Allergies Home Medications ?Medication ?Instructions ?Recorded ?Last Taken ?Type multivitamin 1 tab PO DAILY 03/19/21 11/26/24 History levonorgestrel 14 mcg/24 hr (up to 1 device intrauterine ONCE 05/08/23 11/26/24 History 3 yrs) 13.5 mg intrauterine device ([place]) montelukast 10 mg tablet 10 mg PO DAILY allergies 05/08/23 11/26/24 History fexofenadine 180 mg tablet 180 mg PO Q24H 05/10/24 11/26/24 History (Renée Allergy) metoclopramide HCl 5 mg tablet 5 mg PO HS #30 tabs 07/11/24 11/26/24 Rx escitalopram oxalate 5 mg tablet 5 mg PO DAILY 11/20/24 11/26/24 History rabeprazole 20 mg tablet,delayed 20 mg PO DAILY 11/20/24 11/26/24 History release Allergy/AdvReac Type Severity Reaction Status Date / Time chlorhexidine (From Allergy Intermediate Rash Verified 11/20/24 15:20 ChloraPrep Clear) clindamycin Allergy Intermediate hives Verified 11/20/24 15:20 isopropyl alcohol (From Allergy Intermediate Rash Verified 11/20/24 15:20 ChloraPrep Clear) latex Allergy Intermediate SKIN RASH Verified 11/20/24 15:20 AND ITCHING cefadroxil (From Duricef) Allergy Hives Verified 11/20/24 15:20 Family History Mother Hypertension Father Hypertension High cholesterol Skin cancer Grandmother Arthritis Bowel disease Breast cancer Diabetes Heart disease Hypertension CVA (cerebral vascular accident) Thyroid disorder Grandfather Heart disease Hypertension Grandfather Heart disease Hypertension COPD (chronic obstructive pulmonary disease) Surgical History History of wisdom tooth extraction History of excision of lesion History of bilateral breast reduction surgery Social History Smoking Status: Never smoker alcohol intake: current details: occasionally-on weekends substance use type: does not use caffeine: No what type of physical activity do you participate in: walking and weight training frequency: 5-6 times per week seatbelt use: always do you feel safe at home: Yes additional social history: Single Works at [employer] pt does vape, currently taking iburofen 3 times a day. pt denies marijuana use, denies edibles denies aspirin use. ROS Constitutional Constitutional: Denies fatigue, fever(s), poor appetite, weight gain or weight loss Gastrointestinal Gastrointestinal: Denies belching, bloating, change in bowel habits, change in stool character, chewing difficulty, coffee ground emesis, constipation, cramping, diarrhea, dyspepsia, dysphagia, early satiety, excessive flatus, fecal incontinence, heartburn, hematemesis, hematochezia, hemorrhoids, loose stools, melena, nausea, odynophagia, rectal bleeding, tenesmus, vomiting or weight changes Vital Signs Vital Signs Vital Signs: 11/27/24 08:22 11/27/24 08:22 Temperature 98 F Temperature Source Temporal Pulse Rate 66 Respiratory Rate 16 Respiratory Pattern Normal Blood Pressure 122/67 H Blood Pressure Mean 85 Blood Pressure Source Monitor Blood Pressure Position Semi-Fowlers Blood Pressure Location Right Arm Pulse Ox 98 Oxygen Delivery Method Room Air Weight Weight: 180 lb 12.465 oz Body Mass Index (BMI) 28.3 Physical Exam Const alert, oriented x3, no apparent distress and healthy appearing General Appearance: cooperative GI normal to inspection, nondistended, normoactive bowel sounds, soft to palpation, non-tender and non-distended Percussion: normal to percussion Rectal Exam: deferred Results Lab / Micro Data Labs: Laboratory Results - last 24 hr 11/27/24 08:05: Urine Test Negative Assessment & Plan Assessment/Plan (1) Biliary dyskinesia: (2) Gastroparesis: (3) Abdominal pain: (4) Alternating constipation and diarrhea: PLAN: Assessment and Plan Assessment and Plan (1) Gastroparesis: Status: Acute Plan: Idiopathic gastroparesis from unknown cause at this time. She did have a angiotensin-converting enzyme level that was elevated. She has appointment with the gastroparesis clinic in July. We discussed treatment with Reglan therapy. Risk and benefits were discussed with the patient. She will go on it once a day with her biggest meal. She will give me an update in about a week to let me know how she is doing. (2) abdominal pain and alternating constipation diarrhea. She will undergo EGD and colonoscopy to evaluate upper lower GI tract. She was explained alternatives, risk and benefits include not withstanding bleeding, infection, sepsis, perforation, need for more surgery . She will have an ASA of 3.
--- NOTE | 2024-11-27 08:51 | PRE.ANES_ITS ---
ASA Classification* ASA Classification ASA Classification: 2 Assessment & Plan Anesthesia* Anesthesia Assessment Anesthesia Assessment: Discussed sedation and/or anesthesia options, risks, benefits, and alternatives with patient/parents/legal guardian/POA. Questions invited. The patient/parents/legal guardian/POA seems to understand and agrees to proceed with anesthesia plan. Reviewed the physical assessment, medical history, allergy history and patient home medications list prior to surgery/procedure/anesthetic and documented any changes. Performed airway and anesthesia risk assessments. Anesthesia Type Anesthesia Type: MAC History Source History Obtained from:: Patient and Chart Anesthesia Focused Assessment* Temperature: 98 F Pulse Rate: 66 Blood Pressure: 122/67 Respiratory Rate: 16 Pulse Ox: 98 Oxygen Delivery Method: Room Air Airway Assessment Mouth opens: >3 cm Mallampati Score: II Labs Anesthesia Preop lab: CBC WBC, (4.4-11.0) 8.4 K/mm3 01/03/24, 10:09 RBC, (4.2-5.4) 4.62 M/mm3 01/03/24, 10:09 Hgb, (12.0-15.0) 13.2 g/dL 01/03/24, 10:09 Hct, (37-47) 40.5 % 01/03/24, 10:09 Plt Count, (150-450) 324 K/mm3 01/03/24, 10:09 CHEMISTRY Potassium, (3.5-5.1) 3.7 mmol/L 01/03/24, 10:09 Sodium, (136-145) 136 mmol/L 01/03/24, 10:09 Magnesium, (1.6-2.6) 1.8 mg/dL 01/06/20, 14:47 BUN, (7-18) 9 mg/dL 01/03/24, 10:09 Creatinine, (0.55-1.02) 0.62 mg/dL 01/03/24, 10:09 Glucose, (74-106) 96 mg/dL 01/03/24, 10:09 POC Glucose, (70-110) 105 mg/dL 01/07/20, 06:20 COAG PT, (11.7-14.9) 14.6 SECONDS 01/23/24, 11:47 Urine Test Negative Negative Today, 08:05 Tst Clinic Negative 03/26/21, 14:58 Pre-Assessment Diagnosis/Proposed Procedure Planned Operative Procedure(s): COLONOSCPY, EGD Anesthesia History 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 When Was Last Pacemaker Check QUESTION #4 FULL TEXT: You/Your Family Experience fever (hyperthermia) with Anesthesia Last Oral Intake Last Oral intake: Last Oral Intake NPO since 00:00 11/27/24 08:22 Meds taken in AM with sips of No 11/27/24 08:22 water? 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 Female Yes 11/20/24 15:25 HX of Motion Sickness Yes 11/20/24 15:25 HX of N/V After Surgery Yes 11/20/24 15:25 Non-Smoker Yes 11/20/24 15:25 Duration of Surgery greater No 11/20/24 15:25 than 60 minutes Number of Risk Factors 4 11/20/24 15:25 PONV Score Severe Risk 11/20/24 15:25 Height & Weight Height & Weight: Anesthesia: Height & Weight Height 5 ft 7 in 11/27/24 08:22 Weight: 82 kg 11/27/24 08:22 Body Mass Index (BMI) 28.3 11/27/24 08:22 Respiratory Assessment Respiratory Assessment - printing sign 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 Has anyone observed you stop No 11/20/24 15:25 breathing during sleep? STOP Results Negative 11/20/24 15:25 QUESTION #5 FULL TEXT : Do you snore loudly (louder than talking or can be heard through closed doors)? 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 Specify any problems Hx of Preganancy in last 3 No 11/20/24 15:25 Months Nurse Filling Out Transfusion VCHRISTIN 11/20/24 15:25 & Questions: Date: 11/20/24 11/20/24 15:25 Time: 15:26 11/20/24 15:25 Patient unable to answer at this time (ie. 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 operator Hx Now No 11/20/24 15:25 Gestational Age (in weeks): EDC: Hx Hx Para Hx Section SAB No 11/20/24 15:25 Active Medications Active Medications: Current Medications Generic Name Dose Route Start Last Admin Trade Name Freq PRN Reason Stop Dose Admin Lactated Ringer's 1,000 mls @ 15 mls/hr 11/27/24 08:15 11/27/24 08:29 IV 15 mls/hr .Q48H BRENNAN Administration PFSH Medical History Abnormal biliary HIDA scan PONV (postoperative nausea and vomiting) History of steroid therapy History of hiatal hernia Gastric reflux Heartburn Hypertrophic acne scar History of gastrointestinal disorder History of depression History of asthma History of environmental allergies Anxiety about blushing Hypertrophic scar of skin Contact dermatitis Intertrigo Shoulder pain Chronic thoracic back pain Chronic neck pain Macromastia Frequent headaches Back problem Asthma Allergies Home Medications ?Medication ?Instructions ?Recorded ?Last Taken ?Type multivitamin 1 tab PO DAILY 03/19/2110/30 History levonorgestrel 14 mcg/24 hr (up to 1 device intrauteri ne ONCE 05/08/23 11/26/24 History 3 yrs) 13.5 mg intrauterine device ([place]) montelukast 10 mg tablet 10 mg PO DAILY allergies 01/2011/26/24 History fexofenadine 180 mg tablet 180 mg PO Q24H 05/10/24 History (Renée Allergy) metoclopramide HCl 5 mg tablet 5 mg PO HS #30 tabs 11/26/24 Rx escitalopram oxalate 5 mg tablet 5 mg PO DAILY 5 11/26/24 History rabeprazole 20 mg tablet,delayed 20 mg PO DAILY 11/26/24 History release Allergy/AdvReac Type Severity Reaction Status Date / Time chlorhexidine (From Allergy Intermediate Rash Verified 11/20/24 15:20 ChloraPrep Clear) clindamycin Allergy Intermediate hives Verified 11/20/24 15:20 isopropyl alcohol (From Allergy Intermediate Rash Verified 11/20/24 15:20 ChloraPrep Clear) latex Allergy Intermediate SKIN RASH Verified 11/20/24 15:20 AND ITCHING cefadroxil (From Duricef) Allergy Hives Verified 11/20/24 15:20 Family History Mother Hypertension Father Hypertension High cholesterol Skin cancer Grandmother Arthritis Bowel disease Breast cancer Diabetes Heart disease Hypertension CVA (cerebral vascular accident) Thyroid disorder Grandfather Heart disease Hypertension Grandfather Heart disease Hypertension COPD (chronic obstructive pulmonary disease) Surgical History History of wisdom tooth extraction History of excision of lesion History of bilateral breast reduction surgery Social History Smoking Status: Never smoker alcohol intake: current details: occasionally-on weekends substance use type: does not use caffeine: No what type of physical activity do you participate in: walking and weight training frequency: 5-6 times per week seatbelt use: always do you feel safe at home: Yes additional social history: Single Works at [employer] pt does vape, currently taking iburofen 3 times a day. pt denies marijuana use, denies edibles denies aspirin use. Review of Systems (Anesthesia) ROS Narrative System reviewed and no additional complaints, except as documented. Physical Exam Const alert, oriented x3 and average body habitus HEENT dentition normal Resp normal respiratory effort and normal air movement Cardio regular rate and regular rhythm Back/Spine normal ROM Neuro oriented x3 and moves all extremities
--- NOTE | 2024-11-27 09:00 | COLBX_PTH ---
PATIENT: THEA MERLOS LOC: EN U#:[id number] AGE/SX: 23/F ROOM: RE11/27/[address]: Dr. Harshal Reeves DO : 2000 BED: DIS: 11/27/2024 SPEC #: [id number] RECD: 11/27/24 10:56 STATUS: DM REDelta #: [id number] DEBBIE: 11/27/24 09:[address]: Harshal Reeves DEPT: SURGICAL PATHOLOGY RECD BY: Jesus Chandra ENTERED: 11/27/24 15:07 SP TYPE: COLON BX OTHR DR: Dr. Anne Marie Perdomo MD Tissues: A - Duodenum, NOS B - Gastric mucous membrane C - Esophagus, NOS D - Ileum, NOS Procedures: Immunohistochemical Stains Surgery Specimen Level IV HEADER OPERATION: Colonoscopy with biopsy, EGD with biopsy PRE-OP DIAGNOSIS: Biliary dyskinesia, gastroparesis, abdominal pain, alternating constipation and diarrhea TISSUE SUBMITTED: A- Duodenum biopsy, B- Gastric body biopsy, C- Distal esophagus biopsy, D- Terminal ileum biopsy MICROSCOPIC DIAGNOSIS A. Duodenum, biopsy: - Normal villous architecture with patchy mild Intraepithelial lymphocytosis - see note. - Focal Nathalia gland hyperplasia. Note: This pattern of injury is etiologically nonspecific?and the differential diagnosis includes sensitivity to gluten and non-gluten proteins, small intestinal bacterial overgrowth, stasis related changes, infection, protein calorie malnutrition, tropical sprue, and medication injury (NSAIDs, Olmesartan / Benicar, Mycophenolic acid, Idelalisib, for example). If celiac disease is a clinical concern, additional clinical studies, such as tTG-IgA, are recommended. B. Gastric body, biopsy: * Oxyntic mucosa with mild chronic inflammation. * IHC negative for H. pylori organisms. C. Distal esophagus, biopsy: - Squamous mucosa with mild reactive changes and rare eosinophils. - Columnar mucosa negative for goblet cell metaplasia. D. Terminal ileum, biopsy: * No specific pathologic change. MICROSCOPIC DESCRIPTION Slides are reviewed. All matched controls reacted appropriately. These tests were developed and their performance characteristics determined by [facility]. They may not have been cleared or approved by the U.S. Food and Drug Administration. The FDA has determined that such clearance or approval is not necessary. The above immunohistochemical/dualISH markers are viewed by the Pathologist. GROSS DESCRIPTION A. Received in fixative is one container labeled with the patient's name and designated Duodenum biopsy. The specimen consists of two irregular fragments of degroot tissue that measure 0.6 and 0.8 cm. The specimen is totally submitted in one cassette. B. Received in fixative is one container labeled with the patient's name and designated Gastric body biopsy. The specimen consists of multiple irregular fragments of degroot tissue that in aggregate measure 0.5 x 0.3 x 0.1 cm. The specimen is totally submitted in one cassette. C. Received in fixative is one container labeled with the patient's name and designated Distal esophagus biopsy. The specimen consists of two irregular fragments of degroot tissue, each measuring 0.3 cm. The specimen is totally submitted in one cassette. D. Received in fixative is one container labeled with the patient's name and designated Terminal ileum biopsy. The specimen consists of two irregular fragments of degroot tissue that measure 0.4 and 0.6 cm. The specimen is totally submitted in one cassette. [place] 11/27/2024 CPT:57809o5,59195
--- NOTE | 2024-11-27 10:07 | OP.COLON_ITS ---
Patient Name: Alexandra Cox Procedure Date: 11/27/2024 9:49 AM Date of : 2000 Age: 23 Procedure: Colonoscopy Indications: Clinically significant diarrhea of unexplained origin Providers: Harshal Reeves DO Referring MD: Anne Marie Perdomo Medicines: Monitored Anesthesia Care Patient Profile: This is a 23 year old female. Refer to note in patient chart for documentation of history and physical. Last Colonoscopy: none. The patient's first colonoscopy is today. Complications: No immediate complications. Procedure: Pre-Anesthesia Assessment: - Prior to the procedure, a History and Physical was performed, and patient medications and allergies were reviewed. The patient is competent. The risks and benefits of the procedure and the sedation options and risks were discussed with the patient. All questions were answered and informed consent was obtained. Patient identification and proposed procedure were verified by the physician in the pre-procedure area. Mental Status Examination: alert and oriented. Airway Examination: normal oropharyngeal airway and neck mobility. Respiratory Examination: clear to auscultation. CV Examination: normal. ASA Grade Assessment: II - A patient with mild systemic disease. After reviewing the risks and benefits, the patient was deemed in satisfactory condition to undergo the procedure. The anesthesia plan was to use monitored anesthesia care (MAC). Immediately prior to administration of medications, the patient was re-assessed for adequacy to receive sedatives. The heart rate, respiratory rate, oxygen saturations, blood pressure, adequacy of pulmonary ventilation, and response to care were monitored throughout the procedure. The physical status of the patient was re-assessed after the procedure. After I obtained informed consent, the scope was passed under direct vision. Throughout the procedure, the patient's blood pressure, pulse, and oxygen saturations were monitored continuously. The Colonoscope was introduced through the anus and advanced to the terminal ileum. The colonoscopy was performed without difficulty. The patient tolerated the procedure well. The quality of the bowel preparation was adequate. The terminal ileum, ileocecal valve, appendiceal orifice, and rectum were photographed. Scope In: 9:50:34 AM Scope Withdrawal Time 0 hours 6 minutes 27 seconds Scope Out: 10:00:27 AM Total Procedure Duration Time 0 hours 9 minutes 53 seconds Findings: The perianal and digital rectal examinations were normal. A benign-appearing, intrinsic moderate stenosis measuring 5 cm (in length) x 9 mm (inner diameter) was found in the recto-sigmoid colon and in the sigmoid colon and was traversed. The exam was otherwise without abnormality on direct and retroflexion views. A patchy area of the distal ileum was congested. Biopsies were taken with a cold forceps for histology. Verification of patient identification for the specimen was done. Estimated blood loss was minimal. Impression: - Stricture in the recto-sigmoid colon and in the sigmoid colon. - The examination was otherwise normal on direct and retroflexion views. - Congested mucosa in the distal ileum. Biopsied. Recommendation: - Discharge patient to home. - Resume previous diet. - Continue present medications. - Await pathology results. - Repeat colonoscopy at age 44 for screening purposes. Procedure Code(s): --- Professional --- 73242, Colonoscopy, flexible; with biopsy, single or multiple CPT copyright 2021 [employer]. All rights reserved. The codes documented in this report are preliminary and upon certified procedural coder review may be revised to meet current compliance requirements. Harshal Reeves DO 11/27/2024 10:06:46 AM This report has been signed electronically. Number of Addenda: 0 Note Initiated On: 11/27/2024 9:49 AM
--- NOTE | 2024-11-27 10:07 | OP.PROVAT_ITS ---
11/27/2024 Anne Marie Perdomo [address] [place] [address] Re : Colonoscopy procedure for Alexandra Cox Dear Dr. Perdomo This procedure was performed on Wednesday, November 27, 2024. My impressions and recommendations are as follows: Impressions : - Stricture in the recto-sigmoid colon and in the sigmoid colon. - The examination was otherwise normal on direct and retroflexion views. - Congested mucosa in the distal ileum. Biopsied. Recommendations : - Discharge patient to home. - Resume previous diet. - Continue present medications. - Await pathology results. - Repeat colonoscopy at age 44 for screening purposes. My findings are described in the full procedure note, which is enclosed. If I can be of further assistance, please feel free to contact me at . Sincerely, Harshal Reeves, 11/27/2024 10:06:46 AM This report has been signed electronically.
--- NOTE | 2024-11-27 10:10 | PCM.POST.ANE ---
Anesthesia: Postop Eval I Current Vital Signs Temperature: 97.1 F Pulse Rate: 71 Blood Pressure: 98/53 Respiratory Rate: 16 Pulse Ox: 100 Oxygen Delivery Method: Room Air Assessment Airway patent: Yes Spontaneous unlabored respirations: Yes Mental status: Awake and Calm nausea: No Vomiting: No Anesthesia Complication: No Fluid Hydration Crystalloid volume administer (ml): 800 Total IV fluid infused: 800 Progress Note Anesthesia document: Postop Eval 1 completed: Yes
--- NOTE | 2024-11-27 10:11 | OP.EGD_ITS ---
Patient Name: Alexandra Cox Procedure Date: 11/27/2024 9:24 AM Date of : 2000 Age: 23 Procedure: Upper GI endoscopy Indications: Epigastric abdominal pain, Abdominal pain in the right upper quadrant, Abdominal pain in the left upper quadrant Providers: Harshal Reeves DO Referring MD: Anne Marie Perdomo Medicines: Monitored Anesthesia Care Patient Profile: This is a 23 year old female. Patient has symptoms of chronic abdominal cramping, acute left upper quadrant abdominal pain and acute epigastric abdominal pain. Complications: No immediate complications. Procedure: Pre-Anesthesia Assessment: - Prior to the procedure, a History and Physical was performed, and patient medications and allergies were reviewed. The patient is competent. The risks and benefits of the procedure and the sedation options and risks were discussed with the patient. All questions were answered and informed consent was obtained. Patient identification and proposed procedure were verified by the physician in the pre-procedure area. Mental Status Examination: alert and oriented. Airway Examination: normal oropharyngeal airway and neck mobility. Respiratory Examination: clear to auscultation. CV Examination: normal. Prophylactic Antibiotics: The patient does not require prophylactic antibiotics. Prior Anticoagulants: The patient has taken no anticoagulant or antiplatelet agents except for NSAID medication. ASA Grade Assessment: II - A patient with mild systemic disease. After reviewing the risks and benefits, the patient was deemed in satisfactory condition to undergo the procedure. The anesthesia plan was to use monitored anesthesia care (MAC). Immediately prior to administration of medications, the patient was re-assessed for adequacy to receive sedatives. The heart rate, respiratory rate, oxygen saturations, blood pressure, adequacy of pulmonary ventilation, and response to care were monitored throughout the procedure. The physical status of the patient was re-assessed after the procedure. After obtaining informed consent, the endoscope was passed under direct vision. Throughout the procedure, the patient's blood pressure, pulse, and oxygen saturations were monitored continuously. The Colonoscope was introduced through the mouth, and advanced to the third part of the duodenum. Small bowel enteroscopy was deemed necessary. The upper GI endoscopy was accomplished without difficulty. The patient tolerated the procedure well. Scope In: 9:44:27 AM Scope Out: 9:49:20 AM Total Procedure Duration Time 0 hours 4 minutes 53 seconds Findings: The Z-line was irregular and was found 39 cm from the incisors. Biopsies were taken with a cold forceps for histology. A small hiatal hernia was present. Patchy mildly erythematous mucosa without bleeding was found in the gastric body. Biopsies were taken with a cold forceps for histology. Verification of patient identification for the specimen was done. Estimated blood loss was minimal. Patchy mildly erythematous mucosa without active bleeding and with no stigmata of bleeding was found in the entire duodenum. Biopsies were taken with a cold forceps for histology. Verification of patient identification for the specimen was done. Estimated blood loss was minimal. Bilious fluid was found in the gastric body. Impression: - Z-line irregular, 39 cm from the incisors. Biopsied. - Small hiatal hernia. - Erythematous mucosa in the gastric body. Biopsied. - Erythematous duodenopathy. Biopsied. Recommendation: - Discharge patient to home. - Resume previous diet. - Continue present medications. - Await pathology results. Procedure Code(s): --- Professional --- 09195, Small intestinal endoscopy, enteroscopy beyond second portion of duodenum, not including ileum; with biopsy, single or multiple CPT copyright 2021 [employer]. All rights reserved. The codes documented in this report are preliminary and upon manager night review may be revised to meet current compliance requirements. Harshal Reeves DO 11/27/2024 10:10:59 AM This report has been signed electronically. Number of Addenda: 0 Note Initiated On: 11/27/2024 9:24 AM
--- NOTE | 2024-11-27 10:11 | OP.PROVAT_ITS ---
11/27/2024 Anne Marie Perdomo [address] [place] [address] Re : Upper GI endoscopy procedure for Alexandra Cox Dear Dr. Perdomo This procedure was performed on Wednesday, November 27, 2024. My impressions and recommendations are as follows: Impressions : - Z-line irregular, 39 cm from the incisors. Biopsied. - Small hiatal hernia. - Erythematous mucosa in the gastric body. Biopsied. - Erythematous duodenopathy. Biopsied. Recommendations : - Discharge patient to home. - Resume previous diet. - Continue present medications. - Await pathology results. My findings are described in the full procedure note, which is enclosed. If I can be of further assistance, please feel free to contact me at . Sincerely, Harshal Reeves, 11/27/2024 10:10:59 AM This report has been signed electronically.
--- NOTE | 2024-11-27 11:32 | PCM.POSTANE2 ---
Anesthesia Postop Eval I Sum Postop Eval Completion status Anesthesia document: Postop Eval 1 completed: Yes Anesthesia Postop Eval I Summary Anesthesia Postop Eval I Summary: Anesthesia Postop Eval I: Assessment Summary Airway patent Yes 11/27/24 10:11 [email or web address] Spontaneous unlabored Yes 11/27/24 10:11 [email or web address] respirations Mental status Awake,Calm 11/27/24 10:11 [email or web address] nausea No 11/27/24 10:11 [email or web address] Vomiting No 11/27/24 10:11 [email or web address] Anesthesia Postop Eval I: Fluid Summary Crystalloid volume administer 800 11/27/24 10:11 [email or web address] (ml) Colloids volume administered ( ml) Blood Product volume administered (ml) Total IV fluid infused 800 11/27/24 10:11 [email or web address] Anesthesia Postop Eval I: Summary Notes Anesthesia Complication No 11/27/24 10:11 [email or web address] Anesthesia Complication Comment: Post-operative progress note Anesthesia: Postop Eval II Evaluation Mental status: Awake and Calm Pain Level: 0 nausea: No Vomiting: No Complications Anesthesia Complication: No
== END 2024-11-27 10:40 | disposition home or self-care (01) ==
LOC: EN 08:00 → AC 08:00
PROVIDERS: Anesthesiology; PCP Internal Medicine; Referring Provider Internal Medicine; Visit Provider Internal Medicine Gastroenterology
PROC: 0DJD8ZZ Inspection of Lower Intestinal Tract, Via Natural or Artificial Opening Endoscopic (ICD-10-PCS; CPT 45378; principal; 2024-11-27 08:55)
DX: R10.13 Epigastric pain (principal); K56.699 Other intestinal obstruction unspecified as to partial versus complete obstruction; K44.9 Diaphragmatic hernia without obstruction or gangrene; K21.9 Gastro-esophageal reflux disease without esophagitis; K31.84 Gastroparesis; K82.8 Other specified diseases of gallbladder; K22.89 Other specified disease of esophagus; K31.89 Other diseases of stomach and duodenum; F32.A Depression, unspecified; Z79.899 Other long term (current) drug therapy; K59.00 Constipation, unspecified; R19.7 Diarrhea, unspecified; R10.11 Right upper quadrant pain; R10.12 Left upper quadrant pain; K29.50 Unspecified chronic gastritis without bleeding; D72.10 Eosinophilia, unspecified
CPT/HCPCS: 44361; 45380; 81025; 88305; 88342; J2405

== ENCOUNTER 2024-12-31 07:52 | Outpatient (RCR) | payer OTHER, SELFPAY | END 2025-01-26 23:59 | LOC: NS 07:52 | PROVIDERS: PCP Internal Medicine; Referring Provider Internal Medicine Gastroenterology; Visit Provider Internal Medicine Gastroenterology | DX: Z71.3 Dietary counseling and surveillance (principal); R19.8 Other specified symptoms and signs involving the digestive system and abdomen; K31.84 Gastroparesis; K90.41 Non-celiac gluten sensitivity | CPT/HCPCS: 97802 ==

== ENCOUNTER 2025-01-28 08:08 | Outpatient (RCR) | payer OTHER, SELFPAY | END 2025-02-26 23:59 | LOC: NS 08:08 | PROVIDERS: PCP Internal Medicine; Referring Provider Internal Medicine Gastroenterology; Visit Provider Internal Medicine Gastroenterology | DX: Z71.3 Dietary counseling and surveillance (principal); R19.8 Other specified symptoms and signs involving the digestive system and abdomen; K31.84 Gastroparesis; K90.41 Non-celiac gluten sensitivity | CPT/HCPCS: 97803 ==

== ENCOUNTER → 2025-02-18 | Outpatient (CLI) | payer OTHER, SELFPAY ==
[2025-02-18 18:02] LABS: HIV Nonreactive (Nonreactive); Hepatitis B Surface Antigen Nonreactive (Nonreactive); Syphilis Antibodies Nonreactive (Nonreactive)
[2025-02-20 12:08] LABS: HCV Quant. RNA PCR HCV Not Detected IU/mL (.)
[2025-02-21 13:08] LABS: Chlamydia By Nucleic Acid AMP Negative (Negative); Gonococcus By Nucleic Acid AMP Negative (Negative)
== END | disposition home or self-care (01) ==
PROVIDERS: PCP Internal Medicine; Visit Provider Nurse Practitioner Women's Health
DX: Z11.3 Encounter for screening for infections with a predominantly sexual mode of transmission (principal)
CPT/HCPCS: 36415; 86695; 86696; 86703; 86780; 87340; 87491; 87522; 87591